=== PATIENT | male | born 1930 | race Caucasian/White ===

== ENCOUNTER 2019-11-17 18:45 | Inpatient (IN) | payer MEDICARE, BC ==
[~2019-11-17] VITALS: Ht 175.3 cm; Wt 69.5 kg
--- NOTE | 2019-11-17 18:53 | PHYS DOC ---
Past History Past Medical History: Anxiety, Arthritis, COPD, Dementia, Depression, Hypertension, Other Adult General Chief Complaint Chief Complaint: PSYCH EVALUATION "... I here to straighten you all out...." [facility] HPI Patient is a 89 year old male who presents with above hx and complaints increased aggressive behavior, hitting staff and other residents, increased agitation, insomnia, restlessness, exhibits manic-type behaviors, Violent sundowning dictation, sexually inappropriate with other members and staff. Extremely difficult to redirect. Has had recent falls. Patient has been a resident of [facility] since 03/05/2019. Recent exacerbation of mental status change. Patient has past medical history of A. fib, COPD, CK D, CHF, dementia, depression, insomnia, bipolar schizoaffective disorder with psychotic features, dysrhythmias resulting in pacemaker placement, gout, GERD, hyperlipidemia, hypertension, diabetes, and deconditioning. Patient normally follows with . Patient sent to the emergency department for evaluation before placement on [facility] Dr. Rebolledo. No med list sent with pt. Daughter is at bedside. Review of Systems Review of Systems Constitutional: Denies fever or chills [] Eyes: Denies change in visual acuity, redness, or eye pain [] HENT: Denies nasal congestion or sore throat [] Respiratory: Denies cough or shortness of breath [] Cardiovascular: No additional information not addressed in [facility] [] GI: Denies abdominal pain, nausea, vomiting, bloody stools or diarrhea [] : Denies dysuria or hematuria [] Musculoskeletal: Denies back pain or joint pain [] Integument: Denies rash or skin lesions [] Neurologic: Denies headache, focal weakness or sensory changes [] Endocrine: Denies polyuria or polydipsia [] All other systems were reviewed and found to be within normal limits, except as documented in this note. Family History Family History Noncontributory Current Medications Current Medications See nursing for home medications Allergies Allergies No known drug allergies Physical Exam Physical Exam Constitutional: no acute distress, non-toxic appearance. [] HENT: Normocephalic, atraumatic, bilateral external ears normal, oropharynx moist, no oral exudates, nose normal. [] Eyes: PERRLA, EOMI, conjunctiva normal, no discharge. [] Neck: Normal range of motion, no tenderness, supple, no stridor. [] Cardiovascular: Bradycardia Heart rate , irregular rhythm, no murmur. PMI to the left. Monitor appears to be A. fib Lungs & Thorax: Bilateral breath sounds equal apexes scattered wheezes auscultation [] Abdomen: Bowel sounds normal, soft, no tenderness, no masses, no pulsatile masses. [] Skin: Warm, dry, no erythema, no rash. Poor turgor. Areas of ecchymosis. Back: No tenderness, no CVA tenderness. [] Extremities: No tenderness, no cyanosis, no clubbing, ROM intact, no edema. Changes. Neurologic: Alert, moves extremities on request has distal sensory function, no new focal deficits noted per family and patient Psychologic: Affect anxious, judgement obviously impaired, mood normal. Intermittently agitated EKG EKG My interpretation EKG shows a irregular rhythm and rate. Ventricular rate 66. Overall rhythm appears to be A. fib. Does have bilateral branch block and RVH.[] Radiology/Procedures Radiology/Procedures [address] [address] IMAGING REPORT Signed PATIENT: RAUL PUCKETT ACCOUNT: [id number] : 1930 LOCATION: ER AGE: 89 SEX: M EXAM STATUS: REG ER ORD. PHYSICIAN: ELKE BENITES MD REASON: dyspnea PROCEDURE: PORTABLE CHEST 1V PORTABLE CHEST 1V History: Dyspnea Comparison: None. Findings: Single view of the chest is submitted. There is dual lead left electronic cardiac device. There has been median sternotomy. There is atherosclerotic calcification aortic arch. There is suspected emphysema. Mild left base opacity is likely atelectasis or fibrotic change. There is no significant dependent pleural fluid or pneumothorax. Pericardial cardiac silhouette is upper limits of normal in size. Impression: 1. There is likely mild left base atelectasis or fibrotic change. There is suspected emphysema. Electronically signed by: Aurelia Cervantes MD (11/17/2019 7:33 PM) [id number] DICTATED AND SIGNED BY: AURELIA CERVANTES MD DATE: 11/17/191932 CC: ELKE BENITES MD; KAREN HINES MD ~ [][address] [id number] IMAGING REPORT Signed PATIENT: RAUL PUCKETT ACCOUNT: [id number] : 1930 LOCATION: ER AGE: 89 SEX: M EXAM STATUS: REG ER ORD. PHYSICIAN: ELKE BENITES MD REASON: Confusion, recent falls PROCEDURE: CT HEAD WO CONTRAST CT HEAD WO CONTRAST Date: 11/17/2019 7:34 PM Clinical Indication: Comparison: None. Technique: 5 mm axial tomographic images were obtained of the head without contrast. These were viewed on brain and bone windows. One or more of the following dose reduction techniques were utilized: Automated exposure control (AEC), Adjustment of mA and/or kV according to patient size, Use of iterative reconstruction technique such as ASiR, CT scan done according to ALARA and image gently/image wisely Findings: Mild generalized cerebral and cerebellar volume loss. Mild nonspecific periventricular hypoattenuation, most commonly seen with chronic small vessel ischemic disease. Calcified atherosclerosis of the bilateral cavernous and paraclinoid internal carotid arteries and intracranial vertebral arteries. Small area of right cerebellar encephalomalacia. No intra- or extra-axial mass or fluid collection. No acute hemorrhage. The ventricles are normal in size, shape, and morphology. The salomon-white matter junction is normal. The subarachnoid cisterns are patent. The visualized paranasal sinuses are normal. The visualized portions of the orbits and globes are normal. The mastoid air cells are clear. The rehab care assistant topogram shows no lytic lesion or fracture. Impression: No acute intracranial process. Small right cerebellar encephalomalacia. Mild cerebral volume loss. Mild chronic small vessel ischemic disease. Electronically signed by: Aurelia Lofton MD (11/17/2019 8:23 PM) [id number] DICTATED AND SIGNED BY: AURELIA LOFTON MD DATE: 11/17/192022 CC: ELKE BENITES MD; KAREN HINES MD ~ Course & Med Decision Making Course & Med Decision Making Pertinent Labs and Imaging studies reviewed. (See chart for details) Patient admitted to [facility] Dr. Rebolledo, with Med consult to Dr. Roy Impression: 1. Mental status change 2. Behavior issues-difficult to redirect greater -aggressive behaviors 3. History dementia 4. History of bipolar disorder with psychosis characteristics 5. History of sheng 6. History of anxiety disorder with panic attacks 7. History of insomnia 8. History of A. fib 9. History of COPD 10. History of chronic renal disease 11. History of CHF-BNP 1360 12. History coronary artery disease with pacer placement 13. History of GERD 14. Anemia hemoglobin 11.9 with macrocytic indices 105 15. Elevated BUN and creatinine 40/1.8 [] Dragon Disclaimer Dragon Disclaimer This electronic medical record was generated, in whole or in part, using a voice recognition dictation system. Departure Departure: Disposition: 01 HOME/RESIDENCE PRIOR TO ADM Condition: STABLE Referrals: KAREN HINES MD (PCP) Nataliya Disclaimer This chart was dictated in whole or in part using Voice Recognition software in a busy, high-work load, and often noisy Emergency Department environment. It may contain unintended and wholly unrecognized errors or omissions. ELKE BENITES MD Nov 17, 2019 18:52
--- NOTE | 2019-11-17 19:36 | RAD ---
PORTABLE CHEST 1V History: Dyspnea Comparison: None. Findings: Single view of the chest is submitted. There is dual lead left electronic cardiac device. There has been median sternotomy. There is atherosclerotic calcification aortic arch. There is suspected emphysema. Mild left base opacity is likely atelectasis or fibrotic change. There is no significant dependent pleural fluid or pneumothorax. Pericardial cardiac silhouette is upper limits of normal in size. Impression: 1. There is likely mild left base atelectasis or fibrotic change. There is suspected emphysema. Electronically signed by: Qamar Cervantes MD (11/17/2019 7:33 PM) [id number]
[2019-11-17 19:52] LABS: BARBITURATES NEG (NEG); BENZODIAZEPINES NEG (NEG); CANNABINOIDS NEG (NEG); COCAINE NEG (NEG); METHADONE NEG (NEG); OPIATES NEG (NEG); PHENCYCLIDINE NEG (NEG)
[2019-11-17 19:53] LABS: AMPHETAMINE/METHAMPHETAMINE NEG (NEG)
[2019-11-17 20:18] LABS: CREATININE 1.8 mg/dL (0.7-1.3); GFR 35.9; POTASSIUM 4.4 mmol/L (3.5-5.1)
[2019-11-17 20:20] LABS: BACTERIA,URINE 0 /HPF (0-FEW); BILIRUBIN,URINE NEG (NEG); CLARITY,URINE CLEAR; COLOR,URINE YELLOW; GLUCOSE,URINE NEG (NEG); NITRITE,URINE NEG (NEG); RBC,URINE 0 /HPF (0-2); SQUAMOUS EPITHELIAL CELL,UR OCC /LPF; UROBILINOGEN,URINE 0.2 mg/dL (0.2 mg/dL); WBC,URINE 0 /HPF (0-4)
[2019-11-17 20:20] LABS: BASO % 0 % (0-3); EOS # 0.2 x10^3/uL (0.0-0.7); EOS % 3 % (0-3); HEMOGLOBIN 11.9 g/dL (13.0-17.5); LYMPH # 2.2 x10^3/uL (1.0-4.8); LYMPH % 29 % (24-48); MEAN CORPUSCULAR HEMOGLOBIN 34 pg (25-35); MEAN CORPUSCULAR HGB CONC 32 g/dL (31-37); MEAN CORPUSCULAR VOLUME 105 fL (79-100); MONO # 0.5 x10^3/uL (0.0-1.1); MONO % 7 % (0-9); NEUT # 4.9 x10^3uL (1.8-7.7); NEUT % 62 % (31-73); PLATELET COUNT 152 x10^3/uL (140-400); RED BLOOD COUNT 3.53 x10^6/uL (4.30-5.70); RED CELL DISTRIBUTION WIDTH 16.1 % (11.5-14.5); WHITE BLOOD COUNT 7.9 x10^3/uL (4.0-11.0)
[2019-11-17 20:21] LABS: HYALINE CASTS, URINE OCC /HPF
--- NOTE | 2019-11-17 20:26 | RAD ---
CT HEAD WO CONTRAST Date: 11/17/2019 7:34 PM Clinical Indication: Comparison: None. Technique: 5 mm axial tomographic images were obtained of the head without contrast. These were viewed on brain and bone windows. One or more of the following dose reduction techniques were utilized: Automated exposure control (AEC), Adjustment of mA and/or kV according to patient size, Use of iterative reconstruction technique such as ASiR, CT scan done according to ALARA and image gently/image wisely Findings: Mild generalized cerebral and cerebellar volume loss. Mild nonspecific periventricular hypoattenuation, most commonly seen with chronic small vessel ischemic disease. Calcified atherosclerosis of the bilateral cavernous and paraclinoid internal carotid arteries and intracranial vertebral arteries. Small area of right cerebellar encephalomalacia. No intra- or extra-axial mass or fluid collection. No acute hemorrhage. The ventricles are normal in size, shape, and morphology. The salomon-white matter junction is normal. The subarachnoid cisterns are patent. The visualized paranasal sinuses are normal. The visualized portions of the orbits and globes are normal. The mastoid air cells are clear. The motor coach supervisor topogram shows no lytic lesion or fracture. Impression: No acute intracranial process. Small right cerebellar encephalomalacia. Mild cerebral volume loss. Mild chronic small vessel ischemic disease. Electronically signed by: Qamar Lofton MD (11/17/2019 8:23 PM) [id number]
[2019-11-17 20:30] LABS: ALBUMIN 3.4 g/dL (3.4-5.0); TOTAL BILIRUBIN 0.5 mg/dL (0.2-1.0); TOTAL PROTEIN 7.6 g/dL (6.4-8.2)
[2019-11-17 20:33] LABS: DIRECT BILIRUBIN 0.3 mg/dL (0.0-0.2)
[2019-11-17 20:45] LABS: INFLUENZA A PATIENT NEGATIVE (NEGATIVE); INFLUENZA B PATIENT NEGATIVE (NEGATIVE)
[2019-11-17] MEDS ORDERED: ACETAMINOPHEN 325 MG TABLET PO PRN (21:15)
[2019-11-17] MEDS ORDERED: ASPI-630 PO (21:23)
[2019-11-17] MEDS ORDERED: HYDR25TA PO (21:23)
[2019-11-17] MEDS ORDERED: POLY15DR27 EACHEYE (21:23)
[2019-11-17] MEDS ORDERED: QUET50TA5 PO ×2 (21:23)
[2019-11-17] MEDS ORDERED: ALBU2.5V14 NEB (21:23)
[2019-11-17] MEDS ORDERED: VIT1TABL34 PO (21:23)
[2019-11-17] MEDS ORDERED: ALLO300T PO (21:23)
[2019-11-17] MEDS ORDERED: OMEP20CA16 PO (21:23)
[2019-11-17] MEDS ORDERED: CARB1DRO9 OP (21:23)
[2019-11-17] MEDS ORDERED: SERT100T8 PO (21:23)
[2019-11-17] MEDS ORDERED: LOSA25TA11 PO (21:23)
[2019-11-17] MEDS ORDERED: CYAN100T2 PO (21:23)
[2019-11-17] MEDS ORDERED: CHOL200078 PO (21:23)
[2019-11-17] MEDS ORDERED: POLY17PO5 PO (21:23)
[2019-11-17] MEDS ORDERED: LORA-254 PO (21:23)
[2019-11-17] MEDS ORDERED: FOLI0.8T2 PO (21:23)
[2019-11-17] MEDS ORDERED: QUET100T4 PO (21:23)
[2019-11-17] MEDS ORDERED: FURO-69 PO (21:23)
[2019-11-17] MEDS ORDERED: METO25TA4 PO (21:23)
[2019-11-17] MEDS ORDERED: BUDE10.22 IH (21:23)
[2019-11-17] MEDS ORDERED: BISA10SU4 RC (21:23)
[2019-11-17 21:33] LABS: SEDIMENTATION RATE 38 (0-15)
[2019-11-17] MEDS ORDERED: MAGNESIUM HYDROXIDE 2,400 MG/30 ML ORAL.SUSP. PO PRN (22:30)
[2019-11-17] MEDS ORDERED: MAG HYDROX/AL HYDROX/SIMETH 30 ML ORAL.SUSP PO PRN (22:30)
[2019-11-17] MEDS ORDERED: METHYL SALICYLATE/MENTHOL TOPICAL OINTMENT 57GM TUBE. TP PRN (22:30)
[2019-11-18] MEDS ORDERED: POLYVINYL ALCOHOL 1.4% OPHTH SOLUTION 15ML BOTTLE. OU PRN
[2019-11-18] MEDS ORDERED: BISACODYL 10 MG SUPP.RECT RC PRN
[2019-11-18] MEDS ORDERED: ALBUTEROL SULFATE 2.5 MG/3 ML NEBU. NEB PRN ×2 (00:15)
[2019-11-18] MEDS: QUEtiapine 100 MG TABLET. PO SCH ×2 (00:31→20:14)
[2019-11-18] MEDS: LORazepam 1 MG TABLET PO PRN ×2 (00:31→18:48)
[2019-11-18 03:34] VITALS: BP 151/63
--- NOTE | 2019-11-18 03:54 | EKG ---
[address] [address] Test Date: 2019-11-17 Test Time: 20:03:49 Pat Name: RAUL PUCKETT Department: Room: Gender: M Dermatological Surgeon: : 1930 Requested By: ELKE BENITES Order Number: [id number] Reading MD: Measurements Intervals Rembert Rate: 66 P: MO: QRS: -43 QRSD: 132 T: 28 QT: 428 QTc: 451 Interpretive Statements IRREGULAR RHYTHM, NO P-WAVE FOUND ABNORMAL LEFT AXIS DEVIATION LOW LIMB LEAD VOLTAGE RIGHT BUNDLE BRANCH BLOCK RVH WITH REPOLARIZATION ABNORMALITY QRS(T) CONTOUR ABNORMALITY CONSISTENT WITH ANTEROSEPTAL INFARCT AGE UNDETERMINED CONSISTENT WITH INFERIOR INFARCT PROBABLY OLD ABNORMAL ECG RI6.01 No previous ECG available for comparison
[2019-11-18] MEDS ORDERED: IPRATRPIUM/ALBUTEROL 0.5/2.5MG 3 ML NEBU. ONE (04:58)
[2019-11-18] MEDS: IPRATRPIUM/ALBUTEROL 0.5/2.5MG 3 ML NEBU. NEB SCH ×4 (05:35→20:00)
[2019-11-18 05:48] VITALS: BP 138/76
[2019-11-18 07:02] LABS: BASO % 0 % (0-3); EOS # 0.2 x10^3/uL (0.0-0.7); EOS % 3 % (0-3); HEMATOCRIT 31.3 % (39.0-53.0); HEMOGLOBIN 10.1 g/dL (13.0-17.5); LYMPH % 28 % (24-48); MEAN CORPUSCULAR HEMOGLOBIN 34 pg (25-35); MEAN CORPUSCULAR HGB CONC 32 g/dL (31-37); MEAN CORPUSCULAR VOLUME 104 fL (79-100); MONO # 0.5 x10^3/uL (0.0-1.1); MONO % 7 % (0-9); NEUT # 4.5 x10^3uL (1.8-7.7); NEUT % 62 % (31-73); PLATELET COUNT 131 x10^3/uL (140-400); RED BLOOD COUNT 3.01 x10^6/uL (4.30-5.70); RED CELL DISTRIBUTION WIDTH 16.1 % (11.5-14.5); WHITE BLOOD COUNT 7.3 x10^3/uL (4.0-11.0)
[2019-11-18 07:07] LABS: CALCIUM 8.5 mg/dL (8.5-10.1); CREATININE 1.7 mg/dL (0.7-1.3); GFR 38.3
[2019-11-18] MEDS: BUDESONIDE 0.5 MG/2 ML NEBU NEB SCH ×2 (08:00→20:00)
[2019-11-18] MEDS: CHOLECALCIFEROL (VITAMIN D3) 1,000 UNIT TABLET PO SCH (09:38)
[2019-11-18] MEDS: POLYETHYLENE GLYCOL 3350 17 GM PACKET. PO SCH (09:38)
[2019-11-18] MEDS: PANTOPRAZOLE 40 MG TABLET. PO SCH (09:38)
[2019-11-18] MEDS: QUEtiapine 50 MG TABLET. PO SCH (09:38)
[2019-11-18] MEDS: FUROSEMIDE 20 MG TABLET PO SCH (09:39)
[2019-11-18] MEDS: SERTRALINE 100 MG TABLET. PO SCH (09:39)
[2019-11-18] MEDS: FOLIC ACID 1 MG TABLET PO SCH (09:39)
[2019-11-18] MEDS: ASPIRIN 81 MG TAB.CHEW PO SCH (09:39)
[2019-11-18] MEDS: MULTIVITAMIN I-VITE TABLET. PO SCH ×2 (09:39→20:14)
[2019-11-18] MEDS: LOSARTAN 25 MG TABLET. PO SCH (09:39)
[2019-11-18] MEDS: METOPROLOL TART IMMED RELEASE 25 MG TABLET PO SCH ×2 (09:39→20:14)
[2019-11-18] MEDS: ALLOPURINOL 300 MG TABLET. PO SCH (09:40)
[2019-11-18] MEDS: POLYVINYL ALCOHOL 1.4% OPHTH SOLUTION 15ML BOTTLE. OU SCH ×2 (09:40→20:14)
[2019-11-18] MEDS: CYANOCOBALAMIN (VITAMIN B-12) 100 MCG TABLET PO SCH (09:40)
[2019-11-18 15:46] VITALS: BP 101/59
[2019-11-18 18:06] LABS: THYROXINE 2.2 ug/dL (4.5-12.0)
[2019-11-18] MEDS: PRAMIPEXOLE 0.5 MG TABLET. PO SCH (20:13)
[2019-11-18] MEDS ORDERED: QUEtiapine 100 MG TABLET. PO SCH (21:00)
--- NOTE | 2019-11-18 21:42 | PDOC ---
Exam Note: En Note: Please also refer to the separate dictated note~for this date of service dictated separately. Discussed the patient with Nursing staff reviewed the chart.~Reviewed interim history and current functioning. Reviewed vital signs,~Labs/ Radiology~and current medications noted below. Continue current treatment with the changes noted in the dictated addendum note Assessment: Vital Signs/I&O: Vital Signs Date Time Temp Pulse Resp B/P (MAP) Pulse Ox O2 Delivery O2 Flow Rate FiO2 11/18/19 20:14 68 101/59 11/18/19 15:46 97.3 18 94 11/18/19 06:17 Room Air Labs: Laboratory Tests Test 11/18/19 06:42 White Blood Count 7.3 x10^3/uL (4.0-11.0) Red Blood Count 3.01 x10^6/uL (4.30-5.70) L Hemoglobin 10.1 g/dL (13.0-17.5) L Hematocrit 31.3 % (39.0-53.0) L Mean Corpuscular Volume 104 fL (79-100) H Mean Corpuscular Hemoglobin 34 pg (25-35) Mean Corpuscular Hemoglobin Concent 32 g/dL (31-37) Red Cell Distribution Width 16.1 % (11.5-14.5) H Platelet Count 131 x10^3/uL (140-400) L Neutrophils (%) (Auto) 62 % (31-73) Lymphocytes (%) (Auto) 28 % (24-48) Monocytes (%) (Auto) 7 % (0-9) Eosinophils (%) (Auto) 3 % (0-3) Basophils (%) (Auto) 0 % (0-3) Neutrophils # (Auto) 4.5 x10^3uL (1.8-7.7) Lymphocytes # (Auto) 2.0 x10^3/uL (1.0-4.8) Monocytes # (Auto) 0.5 x10^3/uL (0.0-1.1) Eosinophils # (Auto) 0.2 x10^3/uL (0.0-0.7) Basophils # (Auto) 0.0 x10^3/uL (0.0-0.2) Sodium Level 143 mmol/L (136-145) Potassium Level 4.0 mmol/L (3.5-5.1) Chloride Level 107 mmol/L (98-107) Carbon Dioxide Level 29 mmol/L (21-32) Anion Gap 7 (6-14) Blood Urea Nitrogen 36 mg/dL (8-26) H Creatinine 1.7 mg/dL (0.7-1.3) H Estimated GFR (Cockcroft-Gault) 38.3 Glucose Level 104 mg/dL (70-99) H Calcium Level 8.5 mg/dL (8.5-10.1) Current Medications: Meds: Current Medications Medications (Trade) Dose Ordered Sig/Last Route PRN Reason Start Time Stop Time Status Last Admin Dose Admin Albuterol/ Ipratropium (Duoneb) 3 ml RTQID NEB 11/18/19 08:00 11/19/19 07:59 11/18/19 18:22 Allopurinol (Zyloprim) 300 mg DAILY PO 11/18/19 09:00 11/18/19 09:40 Aspirin (Children'S Aspirin) 81 mg DAILY PO 11/18/19 09:00 11/18/19 09:39 Cyanocobalamin (Vitamin B-12) 100 mcg DAILY PO 11/18/19 09:00 11/18/19 09:40 Furosemide (Lasix) 20 mg DAILY PO 11/18/19 09:00 11/18/19 09:39 Lorazepam (Ativan) 1 mg PRN TID PRN PO ANXIETY / AGITATION 11/18/19 00:00 11/18/19 18:48 Losartan Potassium (Cozaar) 25 mg DAILY PO 11/18/19 09:00 11/18/19 09:39 Metoprolol Tartrate (Lopressor) 12.5 mg BID PO 11/18/19 09:00 11/18/19 20:14 Polyethylene Glycol (miraLAX) 17 gm DAILY PO 11/18/19 09:00 11/18/19 09:38 Quetiapine Fumarate (SEROquel) 50 mg DAILY PO 11/18/19 09:00 11/18/19 09:38 Sertraline HCl (Zoloft) 100 mg DAILY PO 11/18/19 09:00 11/18/19 09:39 Artificial Tears (Artificial Tears) 1 drop BID OU 11/18/19 09:00 11/18/19 20:14 Vitamin D (Vitamin D3) 2,000 unit DAILY PO 11/18/19 09:00 11/18/19 09:38 Folic Acid (Folic Acid) 1 mg DAILY PO 11/18/19 09:00 11/18/19 09:39 Pantoprazole Sodium (Protonix) 40 mg DAILYAC PO 11/18/19 07:30 11/18/19 09:38 Multivitamins/ Minerals (I-Yuan) 1 tab BID PO 11/18/19 09:00 11/18/19 20:14 Quetiapine Fumarate (SEROquel) 100 mg HS PO 11/18/19 00:00 11/18/19 20:14 Pramipexole Dihydrochloride (miraPEX) 0.5 mg QHS PO 11/18/19 21:00 11/18/19 20:13 I have reviewed the current psychotropics carefully including drug interactions. Risk benefit ratio favors no change other than as noted in my dictated progress note. Diagnosis: Problems: (1) Dementia with behavioral disturbance (2) Anxiety disorder (3) Dementia, vascular, with depression (4) Dementia, vascular, with delusions (5) Dementia in Alzheimer's disease with depression (6) Dementia in Alzheimer's disease with delusions (7) Impulse control disorder ELISABETH BACA MD Nov 18, 2019 21:42
[2019-11-18] MEDS: hydrOXYzine HCL 25 MG TABLET PO PRN (22:23)
--- NOTE | 2019-11-18 23:23 | CONS ---
DATE OF CONSULTATION: 11/18/2019 REASON FOR CONSULTATION: Medical management. HISTORY OF PRESENT ILLNESS: The patient is an 89-year-old male patient, a resident at [facility], who was [facility] on account of increased restlessness, agitation confrontational, violent, hitting staff, manic behaviors, sundowning, exit seeking, sexually inappropriate poor sleep, and poor safety, all this in a background of major neurocognitive disorder, vascular Alzheimer with delusion, depression, behavioral disorders, anxiety disorder, unspecified; impulse control. Medically, he has multiple medical problems including atrial fibrillation, hypertension, hyperlipidemia, type 2 diabetes mellitus, chronic obstructive pulmonary disease, chronic kidney disease, heart failure and obstructive sleep apnea as well as gout. PAST SURGICAL HISTORY: Significant for pacemaker placement. PAST PSYCHIATRIC HISTORY: Significant obviously for dementia, vascular Alzheimer with delusion, depression, anxiety as well as impulse control disorder. ALLERGIES: He has no known drug allergies. MEDICATIONS: He is currently on following medications: He is on albuterol sulfate 2.5 mg by nebulizer every 4 hours, metoprolol tartrate 12.5 mg twice a day, losartan potassium 25 mg once a day, aspirin chewable tablet 81 mg once a day, sertraline 100 mg daily, Seroquel 100 mg at bedtime, Seroquel 50 mg daily, Seroquel 50 mg 3 times a day as needed. He is on lorazepam 1 mg 3 times a day as needed for anxiety and agitation, furosemide 20 mg daily, Symbicort 80/4.5 two puffs twice a day, lubricating eyedrops 1 drop to both eyes twice a day, artificial tears 1 drop to both eyes 3 times a day as needed, bisacodyl 10 mg suppositories rectally daily p.r.n. for constipation, polyethylene glycol 17 grams daily. He is on omeprazole 20 mg once a day, cyanocobalamin 100 mcg tablet once a day, folic acid 800 mcg once a day, ergocalciferol 2000 international unit once a day, allopurinol 300 mg daily, PreserVision AREDS tablet 2 tablets twice a day. FAMILY HISTORY: Noncontributory. SOCIAL HISTORY: Apparently, a resident at [facility], no further information available. PHYSICAL EXAMINATION: GENERAL: When I saw him this afternoon, he was sitting comfortably in his chair, in no apparent distress. He was pale, but no jaundice, cyanosis or thyromegaly. No jugular venous distention. No lower limb edema. VITAL SIGNS: His heart rate was 68, blood pressure was 101/59, temperature was 97.3, respiratory rate was 18 and oxygen saturation was 94%. HEAD, EYES, EARS, NOSE AND THROAT: Showed normocephalic, atraumatic. NECK: Supple. HEART: Showed normal first and second heart sounds. No gallop, rub or murmur. CHEST: Shows central trachea, equal bilateral expansion, air entry, vesicular sounds with bilateral scattered rhonchi. I could not appreciate any crepitation. ABDOMEN: Slightly distended, soft, nontender. NEUROLOGIC: He is demented without any obvious lateralizing sign. EXTREMITIES: He moves all extremities without difficulty. He ambulates with a walker SKIN: Showed multiple bruises and laceration. LABORATORY DATA: Showed a white cell count 7900, hemoglobin 11.9, hematocrit 37, MCV 105 and platelet count 252,000. His chemistry showed a serum sodium 142, potassium 4.4, chloride 102, bicarbonate 29, anion gap of 11, BUN 40, creatinine 1.8, estimated GFR was 36 mL per minute. His glucose 129, calcium was 9, magnesium was 2. Total bilirubin, AST, ALT were normal. Alkaline phosphatase slightly elevated. CK was 55. Beta natriuretic peptide was 1360. Total protein was 7.6, albumin was 3.4. Serum lipase was 133. His TSH was normal at 3.146. Serum iron, TIBC, and iron saturation are all consistent with anemia of chronic disease. His prothrombin time, INR and aPTT are normal. Urinalysis was essentially unremarkable, was negative for glucose, ketones, blood, nitrite, leukocyte esterase. There are no rbc's, no wbc's, and no bacteria. His toxic screen was negative and his influenza A and B were negative. He apparently has a chest x-ray done. There is a dual lead left electronic cardiac device. There has been a median sternotomy. There is atherosclerotic calcification of the aortic arch. There is suspected emphysema, mild left basilar opacities, likely atelectasis or fibrotic changes. There is no significant dependent pleural fluid or pneumothorax. Cardiac silhouette is upper limit of normal in size. The CT scan of the head showed that the patient has mild generalized cerebral and cerebellar volume loss, mild nonspecific periventricular hypoattenuation most commonly seen with chronic small vessel ischemic disease, calcified atherosclerosis, bilateral cavernous and paraclinoid internal carotid artery and intracranial vertebral arteries, small area of right cerebellar encephalomalacia. No intra or extraaxial mass or fluid collection, no acute hemorrhage. The ventricles are normal in size and shape and morphology. The salomon-white distinction is normal. The subarachnoid cisterns are patent. The visualized paranasal sinuses are normal. The visualized portion of the orbits and globes are normal. The mastoid air cells are clear. There are no lytic lesions or fracture. IMPRESSION: In summary, this is an 89-year-old male patient who was admitted on account of increasing restlessness, agitation, confrontational, violent, hitting at staff, manic behavior, sundowning, exit seeking, sexually inappropriate, poor sleep, and poor safety, all this in a background of major neurocognitive disorder, vascular Alzheimer with delusion, depression. Medically, he has numerous medical problems; however, he seemed to be generally stable. All his vital signs are within acceptable range and all his labs are also within acceptable range. His chemistry obviously showed that he has chronic kidney disease with estimated GFR between 35-40 mL per minute. Some other lab works are still pending at the time of this dictation. PLAN: My plan is to continue with all these medications. I will follow with his lab works that are still pending at the time of this dictation and make any necessary recommendation. Thank you, Dr. Rebolledo, for allowing me to participate in the care of this patient. LARISSA ROMERO MD DR: PONCE/rosenda JOB#: [id number] / [id number]
[2019-11-18] MEDS: traZODone 50 MG TABLET. PO PRN (23:46)
[2019-11-19 00:07] LABS: HEMOGLOBIN A1C 6.2 % (4.8-5.6)
[2019-11-19] MEDS: traZODone 50 MG TABLET. PO PRN ×2 (01:55→22:25)
[2019-11-19] MEDS: IPRATRPIUM/ALBUTEROL 0.5/2.5MG 3 ML NEBU. NEB SCH (05:44)
[2019-11-19 06:11] VITALS: BP 116/88
[2019-11-19] MEDS: PANTOPRAZOLE 40 MG TABLET. PO SCH (07:30)
[2019-11-19] MEDS: POLYVINYL ALCOHOL 1.4% OPHTH SOLUTION 15ML BOTTLE. OU SCH ×2 (09:00→21:08)
[2019-11-19] MEDS: CYANOCOBALAMIN (VITAMIN B-12) 100 MCG TABLET PO SCH (09:00)
[2019-11-19] MEDS: POLYETHYLENE GLYCOL 3350 17 GM PACKET. PO SCH (09:00)
[2019-11-19] MEDS: CHOLECALCIFEROL (VITAMIN D3) 1,000 UNIT TABLET PO SCH (09:00)
[2019-11-19] MEDS: FUROSEMIDE 20 MG TABLET PO SCH (09:00)
[2019-11-19] MEDS: MULTIVITAMIN I-VITE TABLET. PO SCH ×2 (09:00→21:08)
[2019-11-19] MEDS: METOPROLOL TART IMMED RELEASE 25 MG TABLET PO SCH ×2 (09:00→21:00)
[2019-11-19] MEDS: FOLIC ACID 1 MG TABLET PO SCH (09:00)
[2019-11-19] MEDS: ASPIRIN 81 MG TAB.CHEW PO SCH (09:00)
[2019-11-19] MEDS: LOSARTAN 25 MG TABLET. PO SCH (09:00)
[2019-11-19] MEDS: SERTRALINE 100 MG TABLET. PO SCH (10:14)
[2019-11-19] MEDS: PRAMIPEXOLE 0.25 MG TABLET. PO SCH (10:14)
[2019-11-19] MEDS: QUEtiapine 50 MG TABLET. PO SCH (10:15)
[2019-11-19] MEDS: ALLOPURINOL 300 MG TABLET. PO SCH (10:15)
[2019-11-19] MEDS: BUDESONIDE 0.5 MG/2 ML NEBU NEB SCH ×2 (12:00→21:12)
--- NOTE | 2019-11-19 15:26 | HP ---
ADMIT DATE: 11/18/2019 PSYCHIATRIC ADMISSION HISTORY AND EVALUATION IDENTIFYING DATA: The patient is an 89-year-old male referred to us from [facility] by Dr. Oliva, his primary care physician in [place], [place] on account of worsening cognition, agitation, paranoia and mood lability. The patient has been increasingly restless, agitated, confrontational, violent and hitting at staff. He has appeared manic, sundowning makes all this worse. He has been exit seeking, sexually inappropriate with marked insomnia and he was deemed a potential danger to himself and others around him. He has failed outpatient psychiatric interventions resulting in this referral. The patient has been on one-on-one status at the facility, but despite all the interventions behaviors have only worsened, become more dangerous and violent resulting in this referral. The patient was seen individually evening of 11/18 for this evaluation. CHIEF COMPLAINT: "No." The patient is oriented just to himself. He is in the [place] due to his marked agitation, he is banging on doors, hitting, kicking, extremely loud, disruptive. HISTORY OF PRESENT ILLNESS: The patient has a history of major neurocognitive disorder, Alzheimer, vascular. He has been residing at [facility], but recently getting more agitated, aggressive, disruptive as noted above. He has appeared somewhat manic, but there is no clear history of bipolar disorder, suicidal or homicidal ideation. PAST PSYCHIATRIC HISTORY: As above. MEDICAL HISTORY: Atrial fibrillation, COPD, chronic kidney disease, heart failure, sleep apnea, pacemaker in place, gout, GERD, hyperlipidemia, hypertension, type 2 diabetes mellitus. CODE STATUS: DNR. ALLERGIES: Negative. DIET: Regular. Takes medications whole or crushed in chocolate ice cream. Ambulates with walker independently. CURRENT PSYCHOTROPICS: Seroquel 50 mg a day, Zoloft 100 mg a day, hydroxyzine 25 mg t.i.d. p.r.n., Ativan 1 mg t.i.d. p.r.n., Seroquel 50 mg t.i.d. p.r.n. psychosis, agitation. FAMILY HISTORY: Noncontributory. SOCIAL HISTORY: No history of alcohol, drug abuse, physical, sexual or elder abuse. He is not known to be a perpetrator. REACTION TO HOSPITALIZATION: The patient oblivious to this. ASSETS: Supportive living at the above facility, supportive family. MENTAL STATUS EXAMINATION: The patient was seen individually evening of 11/18. He is oriented to himself. Insight, judgment, recent and remote memory, attention, concentration, fund of knowledge poor consistent with his diagnosis. IMPRESSION: Major neurocognitive disorder, Alzheimer vascular with delusion, depression, behavioral disturbance; anxiety disorder, unspecified; impulse control disorder, unspecified. Rest as above. PLAN: Admit to Geropsychiatry unit at [facility]. I will see the patient daily individually from a psychiatric standpoint. Medical followup with Dr. Roy. Continue the patient on his current psychotropics. Observe baseline. Start Zyprexa p.r.n. Consider Depakote as a mood stabilizer. We will make further changes as clinically indicated. Estimated length of stay 10-12 days. DISPOSITION: Plan is back to half-way when stable. ELISABETH BACA MD DR: CAMPOS/rosenda JOB#: [id number] / [id number]
[2019-11-19 16:10] VITALS: BP 116/46
[2019-11-19] MEDS: PRAMIPEXOLE 0.5 MG TABLET. PO SCH (21:08)
[2019-11-19] MEDS: MIRTAZAPINE 7.5 MG TABLET. PO SCH (21:08)
[2019-11-19] MEDS: QUEtiapine 100 MG TABLET. PO SCH (21:10)
[2019-11-19] MEDS: hydrOXYzine HCL 25 MG TABLET PO PRN (21:15)
--- NOTE | 2019-11-19 21:20 | PDOC ---
Exam Note: En Note: Please also refer to the separate dictated note~for this date of service dictated separately.~Patient seen individually. Discussed the patient with Nursing staff reviewed the chart.~Reviewed interim history and current functioning. Reviewed vital signs,~Labs/ Radiology~and current medications noted below. Continue current treatment with the changes noted in the dictated addendum note Assessment: Vital Signs/I&O: Vital Signs Date Time Temp Pulse Resp B/P (MAP) Pulse Ox O2 Delivery O2 Flow Rate FiO2 11/19/19 21:12 92 Room Air 11/19/19 21:00 66 116/46 11/19/19 16:10 97.5 16 I & O 11/18/19 11/18/19 11/19/19 14:59 22:59 06:59 Intake Total 120 ml 60 ml 240 ml Balance 120 ml 60 ml 240 ml Current Medications: Meds: Current Medications Medications (Trade) Dose Ordered Sig/Last Route PRN Reason Start Time Stop Time Status Last Admin Dose Admin Pramipexole Dihydrochloride (miraPEX) 0.25 mg DAILY PO 11/19/19 09:00 11/19/19 10:14 Trazodone HCl (Desyrel) 50 mg PRN QHS PRN PO insomnia 11/18/19 23:15 11/19/19 01:55 Mirtazapine (Remeron) 7.5 mg QHS PO 11/19/19 21:00 11/19/19 21:08 I have reviewed the current psychotropics carefully including drug interactions. Risk benefit ratio favors no change other than as noted in my dictated progress note. Diagnosis: Problems: (1) Dementia with behavioral disturbance (2) Anxiety disorder (3) Dementia, vascular, with depression (4) Dementia, vascular, with delusions (5) Dementia in Alzheimer's disease with depression (6) Dementia in Alzheimer's disease with delusions (7) Impulse control disorder (8) Major neurocognitive disorder ELISABETH BACA MD Nov 19, 2019 21:20
[2019-11-19] MEDS: LORazepam 1 MG TABLET PO PRN (21:45)
[2019-11-19] MEDS: ACETAMINOPHEN 325 MG TABLET PO PRN (22:25)
[2019-11-20 06:14] VITALS: BP 126/54
[2019-11-20] MEDS: BUDESONIDE 0.5 MG/2 ML NEBU NEB SCH ×2 (08:00→22:20)
[2019-11-20] MEDS: LOSARTAN 25 MG TABLET. PO SCH ×2 (09:00→11:14)
[2019-11-20] MEDS: QUEtiapine 25 MG TABLET. PO SCH ×3 (09:00→17:14)
[2019-11-20] MEDS: MULTIVITAMIN I-VITE TABLET. PO SCH ×3 (09:00→21:00)
[2019-11-20] MEDS: ALLOPURINOL 300 MG TABLET. PO SCH ×2 (09:00→11:14)
[2019-11-20] MEDS: PANTOPRAZOLE 40 MG TABLET. PO SCH ×3 (09:00→23:17)
[2019-11-20] MEDS: PRAMIPEXOLE 0.25 MG TABLET. PO SCH ×2 (09:00→11:15)
[2019-11-20] MEDS: FUROSEMIDE 20 MG TABLET PO SCH ×2 (09:00→11:14)
[2019-11-20] MEDS: POLYETHYLENE GLYCOL 3350 17 GM PACKET. PO SCH ×2 (09:00→11:14)
[2019-11-20] MEDS: CYANOCOBALAMIN (VITAMIN B-12) 100 MCG TABLET PO SCH ×2 (09:00→11:15)
[2019-11-20] MEDS: METOPROLOL TART IMMED RELEASE 25 MG TABLET PO SCH ×3 (09:00→21:00)
[2019-11-20] MEDS: SERTRALINE 100 MG TABLET. PO SCH ×2 (09:00→11:14)
[2019-11-20] MEDS: FOLIC ACID 1 MG TABLET PO SCH ×2 (09:00→11:14)
[2019-11-20] MEDS: ASPIRIN 81 MG TAB.CHEW PO SCH ×2 (09:00→11:14)
[2019-11-20 11:10] VITALS: BP 123/53
[2019-11-20] MEDS: POLYVINYL ALCOHOL 1.4% OPHTH SOLUTION 15ML BOTTLE. OU SCH ×2 (11:14→21:00)
[2019-11-20] MEDS: CHOLECALCIFEROL (VITAMIN D3) 1,000 UNIT TABLET PO SCH (11:15)
--- NOTE | 2019-11-20 15:20 | PN ---
DATE: 11/19/2019 PSYCHIATRIC PROGRESS NOTE This late entry, 11/19/2019, covers elements not covered in my initial note. SUBJECTIVE: I met with the patient evening of 11/19/2019. Per JEFFERY Camarena, the patient slept just about one hour previous night. He was agitated, aggressive at night, hitting, kicking, fighting with staff. REVIEW OF SYSTEMS: No CV, , pulmonary, eye, ENT system symptoms on review. Reliability poor. MENTAL STATUS EXAM: Oriented to himself. Insight, judgment, recent and remote memory, attention, concentration, fund of knowledge poor, consistent with his diagnosis. IMPRESSION: Major neurocognitive disorder, Alzheimer, vascular with delusion, depression, behavioral disturbance; anxiety disorder, unspecified; impulse control disorder, unspecified. PLAN: Start Remeron 7.5 mg p.o. at bedtime for his insomnia and anxiety, agitation. Seroquel is currently at 50 mg a day and we will change to 25 mg in the morning at 0900 hours, 37.5 mg at 1700 hours. Consider Depakote as a mood stabilizer. Continue Zoloft 100 mg a day; trazodone 50 mg at bedtime, may repeat x 1 for insomnia, hydroxyzine 25 mg t.i.d. p.r.n. anxiety; Ativan p.r.n. for anxiety; Seroquel as p.r.n. additionally for mood liability. ELISABETH BACA MD DR: CAMPOS/rosenda JOB#: [id number] / [id number]
[2019-11-20 15:47] VITALS: BP 131/63
[2019-11-20] MEDS: DIVALPROEX 125 MG CAP.SPRINK PO SCH (17:13)
[2019-11-20] MEDS: PRAMIPEXOLE 0.5 MG TABLET. PO SCH (21:00)
--- NOTE | 2019-11-20 21:19 | PDOC ---
Exam Note: En Note: Please also refer to the separate dictated note~for this date of service dictated separately.~Patient seen individually. Discussed the patient with Nursing staff reviewed the chart.~Reviewed interim history and current functioning. Reviewed vital signs,~Labs/ Radiology~and current medications noted below. Continue current treatment with the changes noted in the dictated addendum note Assessment: Vital Signs/I&O: Vital Signs Date Time Temp Pulse Resp B/P (MAP) Pulse Ox O2 Delivery O2 Flow Rate FiO2 11/20/19 20:25 93 Room Air 11/20/19 15:47 97.4 72 18 131/63 (85) I & O 11/19/19 11/19/19 11/20/19 15:00 23:00 07:00 Intake Total 1080 ml 480 ml Balance 1080 ml 480 ml Current Medications: Meds: Current Medications Medications (Trade) Dose Ordered Sig/Last Route PRN Reason Start Time Stop Time Status Last Admin Dose Admin Quetiapine Fumarate (SEROquel) 37.5 mg DAILYWSUP PO 11/20/19 17:00 11/20/19 17:14 Divalproex Sodium (Depakote Sprinkles) 125 mg BID@0900,1700 PO 11/20/19 17:00 11/20/19 17:13 I have reviewed the current psychotropics carefully including drug interactions. Risk benefit ratio favors no change other than as noted in my dictated progress note. Diagnosis: Problems: (1) Major neurocognitive disorder (2) Dementia with behavioral disturbance (3) Anxiety disorder (4) Dementia, vascular, with depression (5) Dementia, vascular, with delusions (6) Dementia in Alzheimer's disease with depression (7) Dementia in Alzheimer's disease with delusions (8) Impulse control disorder ELISABETH BACA MD Nov 20, 2019 21:19
[2019-11-20] MEDS: MIRTAZAPINE 7.5 MG TABLET. PO SCH (21:28)
[2019-11-20] MEDS: hydrOXYzine HCL 25 MG TABLET PO PRN (21:28)
[2019-11-20] MEDS: LORazepam 1 MG TABLET PO PRN (21:29)
[2019-11-20] MEDS: ACETAMINOPHEN 325 MG TABLET PO PRN (21:29)
[2019-11-20] MEDS: QUEtiapine 100 MG TABLET. PO SCH (21:29)
[2019-11-21 06:28] VITALS: BP 143/57
[2019-11-21] MEDS: BUDESONIDE 0.5 MG/2 ML NEBU NEB SCH ×2 (08:00→20:00)
[2019-11-21] MEDS: POLYETHYLENE GLYCOL 3350 17 GM PACKET. PO SCH (08:45)
[2019-11-21] MEDS: hydrOXYzine HCL 25 MG TABLET PO PRN ×2 (08:46→23:20)
[2019-11-21] MEDS: QUEtiapine 25 MG TABLET. PO SCH ×2 (08:46→16:55)
[2019-11-21] MEDS: METOPROLOL TART IMMED RELEASE 25 MG TABLET PO SCH ×2 (08:46→20:42)
[2019-11-21] MEDS: MULTIVITAMIN I-VITE TABLET. PO SCH ×2 (08:46→20:41)
[2019-11-21] MEDS: ALLOPURINOL 300 MG TABLET. PO SCH (08:46)
[2019-11-21] MEDS: SERTRALINE 100 MG TABLET. PO SCH (08:46)
[2019-11-21] MEDS: FOLIC ACID 1 MG TABLET PO SCH (08:47)
[2019-11-21] MEDS: CHOLECALCIFEROL (VITAMIN D3) 1,000 UNIT TABLET PO SCH (08:47)
[2019-11-21] MEDS: QUEtiapine 50 MG TABLET. PO PRN ×2 (08:48→23:20)
[2019-11-21] MEDS: ASPIRIN 81 MG TAB.CHEW PO SCH (08:48)
[2019-11-21] MEDS: PRAMIPEXOLE 0.25 MG TABLET. PO SCH (08:48)
[2019-11-21] MEDS: LOSARTAN 25 MG TABLET. PO SCH (08:48)
[2019-11-21] MEDS: FUROSEMIDE 20 MG TABLET PO SCH (08:48)
[2019-11-21] MEDS: DIVALPROEX 125 MG CAP.SPRINK PO SCH ×2 (08:51→16:55)
[2019-11-21] MEDS: POLYVINYL ALCOHOL 1.4% OPHTH SOLUTION 15ML BOTTLE. OU SCH ×2 (08:58→20:42)
[2019-11-21] MEDS: CYANOCOBALAMIN (VITAMIN B-12) 100 MCG TABLET PO SCH (08:58)
[2019-11-21 15:55] VITALS: BP 100/59
[2019-11-21] MEDS: PRAMIPEXOLE 0.5 MG TABLET. PO SCH (20:41)
[2019-11-21] MEDS: MIRTAZAPINE 7.5 MG TABLET. PO SCH (20:41)
[2019-11-21] MEDS: QUEtiapine 100 MG TABLET. PO SCH (20:41)
--- NOTE | 2019-11-21 21:59 | PDOC ---
Exam Note: En Note: Please also refer to the separate dictated note~for this date of service dictated separately.~Patient seen individually. Discussed the patient with Nursing staff reviewed the chart.~Reviewed interim history and current functioning. Reviewed vital signs,~Labs/ Radiology~and current medications noted below. Continue current treatment with the changes noted in the dictated addendum note Assessment: Vital Signs/I&O: Vital Signs Date Time Temp Pulse Resp B/P (MAP) Pulse Ox O2 Delivery O2 Flow Rate FiO2 11/21/19 20:42 95 110/62 11/21/19 15:55 97.9 18 98 11/21/19 10:13 Room Air I & O 11/20/19 11/20/19 11/21/19 15:00 23:00 07:00 Intake Total 720 ml 360 ml Balance 720 ml 360 ml Current Medications: I have reviewed the current psychotropics carefully including drug interactions. Risk benefit ratio favors no change other than as noted in my dictated progress note. Diagnosis: Problems: (1) Major neurocognitive disorder (2) Dementia with behavioral disturbance (3) Anxiety disorder (4) Dementia, vascular, with depression (5) Dementia, vascular, with delusions (6) Dementia in Alzheimer's disease with depression (7) Dementia in Alzheimer's disease with delusions (8) Impulse control disorder ELISABETH BACA MD Nov 21, 2019 21:59
[2019-11-21] MEDS: LORazepam 1 MG TABLET PO PRN (22:25)
[2019-11-21] MEDS: traZODone 50 MG TABLET. PO PRN (22:25)
[2019-11-22 06:24] VITALS: BP 92/47
[2019-11-22] MEDS: CHOLECALCIFEROL (VITAMIN D3) 1,000 UNIT TABLET PO SCH (08:56)
[2019-11-22] MEDS: PRAMIPEXOLE 0.25 MG TABLET. PO SCH (08:56)
[2019-11-22] MEDS: PANTOPRAZOLE 40 MG TABLET. PO SCH (08:56)
[2019-11-22] MEDS: DIVALPROEX 125 MG CAP.SPRINK PO SCH ×2 (08:56→17:28)
[2019-11-22] MEDS: FOLIC ACID 1 MG TABLET PO SCH (08:56)
[2019-11-22] MEDS: SERTRALINE 100 MG TABLET. PO SCH (08:56)
[2019-11-22] MEDS: ASPIRIN 81 MG TAB.CHEW PO SCH (08:56)
[2019-11-22] MEDS: ALLOPURINOL 300 MG TABLET. PO SCH (08:56)
[2019-11-22] MEDS: MULTIVITAMIN I-VITE TABLET. PO SCH ×2 (08:56→20:31)
[2019-11-22] MEDS: POLYETHYLENE GLYCOL 3350 17 GM PACKET. PO SCH (08:57)
[2019-11-22] MEDS: LOSARTAN 25 MG TABLET. PO SCH (09:00)
[2019-11-22] MEDS: METOPROLOL TART IMMED RELEASE 25 MG TABLET PO SCH ×2 (09:00→20:32)
[2019-11-22] MEDS: FUROSEMIDE 20 MG TABLET PO SCH (09:00)
[2019-11-22] MEDS: CYANOCOBALAMIN (VITAMIN B-12) 100 MCG TABLET PO SCH (09:01)
[2019-11-22] MEDS: POLYVINYL ALCOHOL 1.4% OPHTH SOLUTION 15ML BOTTLE. OU SCH ×2 (09:01→20:32)
[2019-11-22] MEDS: QUEtiapine 25 MG TABLET. PO SCH ×2 (09:01→17:28)
[2019-11-22] MEDS: BUDESONIDE 0.5 MG/2 ML NEBU NEB SCH ×2 (10:34→21:26)
[2019-11-22 15:57] VITALS: BP 129/84
[2019-11-22] MEDS: PRAMIPEXOLE 0.5 MG TABLET. PO SCH (20:31)
[2019-11-22] MEDS: QUEtiapine 100 MG TABLET. PO SCH (20:31)
[2019-11-22] MEDS: MIRTAZAPINE 7.5 MG TABLET. PO SCH (20:31)
[2019-11-22] MEDS: traZODone 50 MG TABLET. PO PRN ×2 (20:32→23:00)
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
--- NOTE | 2019-11-22 21:38 | PDOC ---
Exam Note: En Note: Please also refer to the separate dictated note~for this date of service dictated separately.~Patient seen individually. Discussed the patient with Nursing staff reviewed the chart.~Reviewed interim history and current functioning. Reviewed vital signs,~Labs/ Radiology~and current medications noted below. Continue current treatment with the changes noted in the dictated addendum note Assessment: Vital Signs/I&O: Vital Signs Date Time Temp Pulse Resp B/P (MAP) Pulse Ox O2 Delivery O2 Flow Rate FiO2 11/22/19 20:32 70 129/84 11/22/19 20:10 95 Room Air 11/22/19 15:57 98.2 16 11/22/19 06:24 2.0 I & O 11/21/19 11/21/19 11/22/19 15:00 23:00 07:00 Intake Total 600 ml 360 ml Balance 600 ml 360 ml Current Medications: Meds: Current Medications Medications (Trade) Dose Ordered Sig/Last Route PRN Reason Start Time Stop Time Status Last Admin Dose Admin Quetiapine Fumarate (SEROquel) 37.5 mg DAILY PO 11/22/19 09:00 11/22/19 09:01 Quetiapine Fumarate (SEROquel) 50 mg DAILYWSUP PO 11/22/19 17:00 11/22/19 17:28 I have reviewed the current psychotropics carefully including drug interactions. Risk benefit ratio favors no change other than as noted in my dictated progress note. Diagnosis: Problems: (1) Major neurocognitive disorder (2) Dementia with behavioral disturbance (3) Anxiety disorder (4) Dementia, vascular, with depression (5) Dementia, vascular, with delusions (6) Dementia in Alzheimer's disease with depression (7) Dementia in Alzheimer's disease with delusions (8) Impulse control disorder ELISABETH BACA MD Nov 22, 2019 21:38
[2019-11-22] MEDS: LORazepam 1 MG TABLET PO PRN (23:00)
--- NOTE | 2019-11-23 03:44 | PN ---
DATE: 11/21/2019 PSYCHIATRIC PROGRESS NOTE This late entry 11/21/2019 covers elements not covered in my initial note. SUBJECTIVE: I met with the patient evening of 11/21/2019. Per JEFFERY Espana, the patient slept 7 hours previous night. Previous night, he had a difficult night, received p.r.n., trazodone, Ativan, hydroxyzine, other hydroxyzine during the day on 11/21/2019. REVIEW OF SYSTEMS: No CV, , pulmonary, eye, ENT system symptoms on review. Reliability poor. MENTAL STATUS EXAM: Oriented to himself. Insight, judgment, recent and remote memory, attention, concentration, fund of knowledge poor, consistent with his diagnosis. IMPRESSION: Major neurocognitive disorder; Alzheimer, vascular with delusion; depression; behavioral disturbance; anxiety disorder, unspecified; impulse control disorder, unspecified. PLAN: Depakote was initiated yesterday. We will follow labs level. He is currently on Seroquel 25 mg daily, 37.5 mg at 1700, 100 mg at bedtime. We will increase the morning to 37.5 mg and 1700 to 50 mg. Continue rest unchanged. May need to adjust Depakote to reach therapeutic level. ELISABETH BACA MD DR: CAMPOS/rosenda JOB#: [id number] / [id number]
[2019-11-23 05:39] VITALS: BP 135/62
[2019-11-23] MEDS: PANTOPRAZOLE 40 MG TABLET. PO SCH (07:30)
[2019-11-23] MEDS: POLYETHYLENE GLYCOL 3350 17 GM PACKET. PO SCH (08:48)
[2019-11-23] MEDS: QUEtiapine 25 MG TABLET. PO SCH ×2 (08:49→17:00)
[2019-11-23] MEDS: SERTRALINE 100 MG TABLET. PO SCH (08:50)
[2019-11-23] MEDS: DIVALPROEX 125 MG CAP.SPRINK PO SCH ×2 (08:50→17:00)
[2019-11-23] MEDS: PRAMIPEXOLE 0.25 MG TABLET. PO SCH (08:51)
[2019-11-23] MEDS: ALLOPURINOL 300 MG TABLET. PO SCH (08:51)
[2019-11-23] MEDS: POLYVINYL ALCOHOL 1.4% OPHTH SOLUTION 15ML BOTTLE. OU SCH ×2 (09:00→20:31)
[2019-11-23] MEDS: ASPIRIN 81 MG TAB.CHEW PO SCH (09:00)
[2019-11-23] MEDS: FUROSEMIDE 20 MG TABLET PO SCH (09:00)
[2019-11-23] MEDS: LOSARTAN 25 MG TABLET. PO SCH (09:00)
[2019-11-23] MEDS: MULTIVITAMIN I-VITE TABLET. PO SCH ×2 (09:00→20:30)
[2019-11-23] MEDS: CHOLECALCIFEROL (VITAMIN D3) 1,000 UNIT TABLET PO SCH (09:00)
[2019-11-23] MEDS: METOPROLOL TART IMMED RELEASE 25 MG TABLET PO SCH ×2 (09:00→20:31)
[2019-11-23] MEDS: FOLIC ACID 1 MG TABLET PO SCH (09:00)
[2019-11-23] MEDS: CYANOCOBALAMIN (VITAMIN B-12) 100 MCG TABLET PO SCH (09:00)
[2019-11-23] MEDS: BUDESONIDE 0.5 MG/2 ML NEBU NEB SCH (11:03)
[2019-11-23 15:58] VITALS: BP 134/72
--- NOTE | 2019-11-23 18:14 | TX PLAN ---
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 Additional Admission Comments: According to the intake, pt is hitting at staff, restless, agitated and confrontational. Pt is currently exhibiting manic behavior, violent, sundowning, exit seeking and sexually inappropriate, poor sleep and a safety concern. Problems Active Problems: Agitated Combative with staff Poor sleep Sexually inappropriate behavior Inactive Problems: Medication compliance Pt Strengths/Limitations Ability for [place]: Poor Cognitive Functioning/Ability: Poor Communication Skills/Ability: Fair Insight/Judgement: Poor Intellectual Ability: Poor Physical Health: Fair Social Skills: Poor Stability in Family: Good Stability in School/Work: Poor Verbal Skills: Fair Discharge Criteria Discharge Criteria: Adequate arrangements @DC, Improved behavior, Improved mood/thought Preliminary Discharge Plan Preliminary DC Plan: Current Living Arrange. Special Precautions Fall Risk: Low Initial D/C Plan Pt will plan to return to [facility] once stable. Identified Discharge Needs: Psychiatric Follow-up Currently Utilized Resources Currently Utilized Resources/P: Pt has a primary care physician Identified Problems/Hx/Goals Objectives/Short-Term Goals Short Term Goals: Dec. Outbursts, Improved Social Skills, Medication Stabilization, Promote Coping Skill Short Term Goals in Patient's: Medication and Behavioral Modification Interventions/Frequency Staff Interventions/Frequency&: Psychiatrist to assess pt at least 3x per week Water Fabricator Operator to assess pt at least 2x per week. Nursing to complete 15 minute checks daily. Encourage pt to participate in group activities. 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 Education: Pt did graduate high school and completed his degree a year early. Community Follow-up Community Provider/Family Inpu: This is a part of pt progression and just want to make sure that he can be stable before discharging back to placement. Treatment Plan Explained Patient/Package Wrapper had this treatment plan explained to him/her as indicated by the signature below and has been given the opportunity to ask questions and make suggestions: Date: Patient/Package Wrapper Signature: Patient/Package Wrapper Decline: No (Family to participate in all aspects of care.) CLAUDE SCHREIBER Nov 23, 2019 18:14
[2019-11-23] MEDS: PRAMIPEXOLE 0.5 MG TABLET. PO SCH (20:30)
[2019-11-23] MEDS: MIRTAZAPINE 7.5 MG TABLET. PO SCH (20:30)
[2019-11-23] MEDS: QUEtiapine 100 MG TABLET. PO SCH (20:30)
[2019-11-23] MEDS: traZODone 50 MG TABLET. PO PRN (20:32)
--- NOTE | 2019-11-23 21:18 | PDOC ---
Exam Note: En Note: Please also refer to the separate dictated note~for this date of service dictated separately.~Patient seen individually. Discussed the patient with Nursing staff reviewed the chart.~Reviewed interim history and current functioning. Reviewed vital signs,~Labs/ Radiology~and current medications noted below. Continue current treatment with the changes noted in the dictated addendum note Assessment: Vital Signs/I&O: Vital Signs Date Time Temp Pulse Resp B/P (MAP) Pulse Ox O2 Delivery O2 Flow Rate FiO2 11/23/19 20:31 127 134/72 11/23/19 15:58 96.9 22 91 11/23/19 11:03 Room Air 11/22/19 06:24 2.0 I & O 11/22/19 11/22/19 11/23/19 15:00 23:00 07:00 Intake Total 240 ml 240 ml 240 ml Balance 240 ml 240 ml 240 ml Current Medications: Meds: Current Medications Medications (Trade) Dose Ordered Sig/Last Route PRN Reason Start Time Stop Time Status Last Admin Dose Admin Olanzapine (ZyPREXA ZYDIS) 2.5 mg PRN Q2HR PRN PO PSYCHOSIS 11/22/19 22:30 11/23/19 20:32 I have reviewed the current psychotropics carefully including drug interactions. Risk benefit ratio favors no change other than as noted in my dictated progress note. Diagnosis: Problems: (1) Major neurocognitive disorder (2) Dementia with behavioral disturbance (3) Anxiety disorder (4) Dementia, vascular, with depression (5) Dementia, vascular, with delusions (6) Dementia in Alzheimer's disease with depression (7) Dementia in Alzheimer's disease with delusions (8) Impulse control disorder ELISABETH BACA MD Nov 23, 2019 21:18
--- NOTE | 2019-11-23 23:46 | PN ---
DATE: 11/22/2019 PSYCHIATRIC PROGRESS NOTE This late entry 11/22/2019 covers elements not covered in my initial note. SUBJECTIVE: I met with the patient evening of 11/22/2019. Per JEFFERY Espana, the patient slept 7 hours previous night. Reportedly, he has been quite anxious, restless, especially in the evening with shower and sustained fresh skin tears. He did receive trazodone, Ativan, Seroquel, Atarax to help with this. Previous night, he went to bed at 1:00 a.m., little more confused in the evening, was undressing himself, takes meds in pudding. REVIEW OF SYSTEMS: No CV, , pulmonary, eye, ENT system symptoms on review. Reliability poor. MENTAL STATUS EXAM: Oriented to himself. Insight, judgment, recent and remote memory, attention, concentration, fund of knowledge poor, consistent with his diagnosis mentioned in my initial note. IMPRESSION: Major neurocognitive disorder, Alzheimer, vascular with delusion, depression, behavioral disturbance; anxiety disorder, unspecified; impulse control disorder, unspecified. Rest unchanged. PLAN: Change the Seroquel p.r.n. to Zyprexa 2.5 mg q.2 hours p.r.n. psychosis, agitation, max 10 mg in 24 hours. Continue rest unchanged from initial note. May discontinue the Ativan p.r.n. in a day or so. Make further adjustments in his psychotropics. Post-labs level on the Depakote. ELISABETH BACA MD DR: CAMPOS/rosenda JOB#: [id number] / [id number]
[2019-11-24] MEDS: BUDESONIDE 0.5 MG/2 ML NEBU NEB SCH ×3 (00:46→20:00)
[2019-11-24] MEDS: ACETAMINOPHEN 325 MG TABLET PO PRN (04:29)
[2019-11-24] MEDS: hydrOXYzine HCL 25 MG TABLET PO PRN (05:45)
[2019-11-24 05:49] VITALS: BP 112/68
[2019-11-24 06:52] LABS: BASO % 0 % (0-3); EOS # 0.1 x10^3/uL (0.0-0.7); EOS % 1 % (0-3); HEMATOCRIT 32.1 % (39.0-53.0); HEMOGLOBIN 10.3 g/dL (13.0-17.5); LYMPH % 23 % (24-48); MEAN CORPUSCULAR HEMOGLOBIN 34 pg (25-35); MEAN CORPUSCULAR HGB CONC 32 g/dL (31-37); MEAN CORPUSCULAR VOLUME 106 fL (79-100); MONO # 0.7 x10^3/uL (0.0-1.1); MONO % 9 % (0-9); NEUT # 5.7 x10^3uL (1.8-7.7); NEUT % 67 % (31-73); PLATELET COUNT 159 x10^3/uL (140-400); RED BLOOD COUNT 3.01 x10^6/uL (4.30-5.70); RED CELL DISTRIBUTION WIDTH 16.5 % (11.5-14.5); WHITE BLOOD COUNT 8.5 x10^3/uL (4.0-11.0)
[2019-11-24 07:09] LABS: ALBUMIN 2.8 g/dL (3.4-5.0); ALBUMIN/GLOBULIN RATIO 0.8 (1.0-1.7); ALK PHOS 143 U/L (46-116); ALT (SGPT) 18 U/L (16-63); ANION GAP 8 (6-14); AST (SGOT) 17 U/L (15-37); BLOOD UREA NITROGEN 36 mg/dL (8-26); BUN/CREATININE RATIO 19 (6-20); CALCIUM 9.1 mg/dL (8.5-10.1); CARBON DIOXIDE 29 mmol/L (21-32); CHLORIDE 113 mmol/L (98-107); CREATININE 1.9 mg/dL (0.7-1.3); GFR 33.7; GLUCOSE 181 mg/dL (70-99); POTASSIUM 5.8 mmol/L (3.5-5.1); SODIUM 150 mmol/L (136-145); TOTAL BILIRUBIN 0.7 mg/dL (0.2-1.0); TOTAL PROTEIN 6.5 g/dL (6.4-8.2)
[2019-11-24 07:11] LABS: VAL ACID 16 mcg/mL (50-100)
[2019-11-24] MEDS: POLYVINYL ALCOHOL 1.4% OPHTH SOLUTION 15ML BOTTLE. OU SCH ×2 (09:00→20:17)
[2019-11-24] MEDS: POLYETHYLENE GLYCOL 3350 17 GM PACKET. PO SCH (09:00)
[2019-11-24] MEDS: ASPIRIN 81 MG TAB.CHEW PO SCH (10:05)
[2019-11-24] MEDS: FOLIC ACID 1 MG TABLET PO SCH (10:05)
[2019-11-24] MEDS: METOPROLOL TART IMMED RELEASE 25 MG TABLET PO SCH ×2 (10:06→20:13)
[2019-11-24] MEDS: QUEtiapine 25 MG TABLET. PO SCH ×2 (10:06→16:58)
[2019-11-24] MEDS: PRAMIPEXOLE 0.25 MG TABLET. PO SCH (10:07)
[2019-11-24] MEDS: CHOLECALCIFEROL (VITAMIN D3) 1,000 UNIT TABLET PO SCH (10:07)
[2019-11-24] MEDS: PANTOPRAZOLE 40 MG TABLET. PO SCH (10:07)
[2019-11-24] MEDS: FUROSEMIDE 20 MG TABLET PO SCH (10:07)
[2019-11-24] MEDS: SERTRALINE 100 MG TABLET. PO SCH (10:07)
[2019-11-24] MEDS: MULTIVITAMIN I-VITE TABLET. PO SCH ×2 (10:07→20:13)
[2019-11-24] MEDS: ALLOPURINOL 300 MG TABLET. PO SCH (10:07)
[2019-11-24] MEDS: LOSARTAN 25 MG TABLET. PO SCH (10:08)
[2019-11-24] MEDS: DIVALPROEX 125 MG CAP.SPRINK PO SCH ×2 (10:08→16:58)
[2019-11-24] MEDS: CYANOCOBALAMIN (VITAMIN B-12) 100 MCG TABLET PO SCH (10:08)
[2019-11-24 16:21] VITALS: BP 124/78
--- NOTE | 2019-11-24 19:50 | PN ---
DATE: 11/23/2019 PSYCHIATRIC PROGRESS NOTE This late entry 11/23/2019 covers elements not covered in my initial note. SUBJECTIVE: I met with the patient evening of 11/23/2019. Per JEFFERY Camarena, the patient slept 6 hours previous night. He did alright previous evening until the aids took him to his shower. It took 5 staff members to assist him through the shower and he was agitated, aggressive, disruptive, sustained for the skin tears. Earlier this morning, he was agitated off and on. Advised the staff to give him Zyprexa p.r.n. prior to showers. He often spits out his medications, takes it crushed in pudding. REVIEW OF SYSTEMS: No CV, , pulmonary, eye, ENT system symptoms on review. Reliability poor. MENTAL STATUS EXAM: Oriented to himself. Insight, judgment, recent and remote memory, attention, concentration, fund of knowledge poor, consistent with his diagnosis. IMPRESSION: Major neurocognitive disorder, Alzheimer, vascular with delusion, depression, behavioral disturbance; anxiety disorder, unspecified; impulse control disorder, unspecified. PLAN: Discontinue the Ativan 1 mg t.i.d. p.r.n. anxiety. Seroquel p.r.n. has been changed to Zyprexa p.r.n. 2.5 mg q. 2 hours p.r.n. psychosis, agitation, max 10 mg in 24 hours. Continue scheduled Seroquel 37.5 mg daily, 50 mg at 1700, 100 mg at bedtime, Zoloft 100 mg a day, hydroxyzine p.r.n., trazodone at bedtime p.r.n., Remeron 7.5 mg at bedtime, Depakote Sprinkles 125 mg b.i.d. Check labs and valproic acid level 11/24/2019 and then adjust further as clinically indicated. ELISABETH BACA MD DR: CAMPOS/rosenda JOB#: [id number] / [id number]
[2019-11-24] MEDS: MIRTAZAPINE 7.5 MG TABLET. PO SCH (20:13)
[2019-11-24] MEDS: PRAMIPEXOLE 0.5 MG TABLET. PO SCH (20:13)
[2019-11-24] MEDS: QUEtiapine 100 MG TABLET. PO SCH (20:13)
--- NOTE | 2019-11-24 21:16 | PDOC ---
Exam Note: En Note: Please also refer to the separate dictated note~for this date of service dictated separately.~Patient seen individually. Discussed the patient with Nursing staff reviewed the chart.~Reviewed interim history and current functioning. Reviewed vital signs,~Labs/ Radiology~and current medications noted below. Continue current treatment with the changes noted in the dictated addendum note Assessment: Vital Signs/I&O: Vital Signs Date Time Temp Pulse Resp B/P (MAP) Pulse Ox O2 Delivery O2 Flow Rate FiO2 11/24/19 21:07 92 Room Air 11/24/19 20:13 82 124/78 11/24/19 16:21 97.6 16 11/22/19 06:24 2.0 I & O 11/23/19 11/23/19 11/24/19 15:00 23:00 07:00 Intake Total 480 ml 240 ml 240 ml Balance 480 ml 240 ml 240 ml Labs: Laboratory Tests Test 11/24/19 06:37 White Blood Count 8.5 x10^3/uL (4.0-11.0) Red Blood Count 3.01 x10^6/uL (4.30-5.70) L Hemoglobin 10.3 g/dL (13.0-17.5) L Hematocrit 32.1 % (39.0-53.0) L Mean Corpuscular Volume 106 fL (79-100) H Mean Corpuscular Hemoglobin 34 pg (25-35) Mean Corpuscular Hemoglobin Concent 32 g/dL (31-37) Red Cell Distribution Width 16.5 % (11.5-14.5) H Platelet Count 159 x10^3/uL (140-400) Neutrophils (%) (Auto) 67 % (31-73) Lymphocytes (%) (Auto) 23 % (24-48) L Monocytes (%) (Auto) 9 % (0-9) Eosinophils (%) (Auto) 1 % (0-3) Basophils (%) (Auto) 0 % (0-3) Neutrophils # (Auto) 5.7 x10^3uL (1.8-7.7) Lymphocytes # (Auto) 2.0 x10^3/uL (1.0-4.8) Monocytes # (Auto) 0.7 x10^3/uL (0.0-1.1) Eosinophils # (Auto) 0.1 x10^3/uL (0.0-0.7) Basophils # (Auto) 0.0 x10^3/uL (0.0-0.2) Sodium Level 150 mmol/L (136-145) H Potassium Level 5.8 mmol/L (3.5-5.1) H Chloride Level 113 mmol/L (98-107) H Carbon Dioxide Level 29 mmol/L (21-32) Anion Gap 8 (6-14) Blood Urea Nitrogen 36 mg/dL (8-26) H Creatinine 1.9 mg/dL (0.7-1.3) H Estimated GFR (Cockcroft-Gault) 33.7 BUN/Creatinine Ratio 19 (6-20) Glucose Level 181 mg/dL (70-99) H Calcium Level 9.1 mg/dL (8.5-10.1) Total Bilirubin 0.7 mg/dL (0.2-1.0) Aspartate Amino Transferase (AST) 17 U/L (15-37) Alanine Aminotransferase (ALT) 18 U/L (16-63) Alkaline Phosphatase 143 U/L (46-116) H Total Protein 6.5 g/dL (6.4-8.2) Albumin 2.8 g/dL (3.4-5.0) L Albumin/Globulin Ratio 0.8 (1.0-1.7) L Valproic Acid Level 16 mcg/mL (50-100) L Valproic Acid Last Dose Date 11/23/19 Valproic Acid Last Dose Time 1700 Current Medications: Meds: Current Medications Medications (Trade) Dose Ordered Sig/Last Route PRN Reason Start Time Stop Time Status Last Admin Dose Admin Divalproex Sodium (Depakote Sprinkles) 250 mg BID@0900,1700 PO 11/24/19 17:00 11/24/19 16:58 I have reviewed the current psychotropics carefully including drug interactions. Risk benefit ratio favors no change other than as noted in my dictated progress note. Diagnosis: Problems: (1) Major neurocognitive disorder (2) Dementia with behavioral disturbance (3) Anxiety disorder (4) Dementia, vascular, with depression (5) Dementia, vascular, with delusions (6) Dementia in Alzheimer's disease with depression (7) Dementia in Alzheimer's disease with delusions (8) Impulse control disorder ELISABETH BACA MD Nov 24, 2019:16
[2019-11-25] MEDS: traZODone 50 MG TABLET. PO PRN ×2 (01:46→20:03)
[2019-11-25 05:35] VITALS: BP 115/60
[2019-11-25] MEDS: BUDESONIDE 0.5 MG/2 ML NEBU NEB SCH ×2 (08:00→20:00)
[2019-11-25] MEDS: POLYETHYLENE GLYCOL 3350 17 GM PACKET. PO SCH (09:00)
[2019-11-25] MEDS: POLYVINYL ALCOHOL 1.4% OPHTH SOLUTION 15ML BOTTLE. OU SCH ×2 (09:00→21:00)
[2019-11-25] MEDS: MULTIVITAMIN I-VITE TABLET. PO SCH ×2 (12:03→20:02)
[2019-11-25] MEDS: FOLIC ACID 1 MG TABLET PO SCH (12:04)
[2019-11-25] MEDS: DIVALPROEX 125 MG CAP.SPRINK PO SCH ×2 (12:04→17:00)
[2019-11-25] MEDS: CHOLECALCIFEROL (VITAMIN D3) 1,000 UNIT TABLET PO SCH (12:05)
[2019-11-25] MEDS: CYANOCOBALAMIN (VITAMIN B-12) 100 MCG TABLET PO SCH (12:05)
[2019-11-25] MEDS: METOPROLOL TART IMMED RELEASE 25 MG TABLET PO SCH ×2 (12:05→20:03)
[2019-11-25] MEDS: SERTRALINE 100 MG TABLET. PO SCH (12:06)
[2019-11-25] MEDS: QUEtiapine 25 MG TABLET. PO SCH ×2 (12:06→17:00)
[2019-11-25] MEDS: ASPIRIN 81 MG TAB.CHEW PO SCH (12:06)
[2019-11-25] MEDS: ALLOPURINOL 300 MG TABLET. PO SCH (12:06)
[2019-11-25] MEDS: PRAMIPEXOLE 0.25 MG TABLET. PO SCH (12:06)
[2019-11-25] MEDS: FUROSEMIDE 20 MG TABLET PO SCH (12:07)
[2019-11-25] MEDS: PANTOPRAZOLE 40 MG TABLET. PO SCH (12:07)
[2019-11-25 16:07] VITALS: BP 122/53
[2019-11-25] MEDS ORDERED: LACTULOSE 20 GM/30 ML SOLUTION. PO ONE (19:00)
[2019-11-25] MEDS ORDERED: SODIUM POLYSTYRENE SULFONATE 15 GM/60 ML ORAL.SUSP. PO ONE (19:00)
[2019-11-25] MEDS: QUEtiapine 100 MG TABLET. PO SCH (20:02)
[2019-11-25] MEDS: MIRTAZAPINE 7.5 MG TABLET. PO SCH (20:02)
[2019-11-25] MEDS: PRAMIPEXOLE 0.5 MG TABLET. PO SCH (20:03)
--- NOTE | 2019-11-25 21:17 | PDOC ---
Exam Note: En Note: Please also refer to the separate dictated note~for this date of service dictated separately.~Patient seen individually. Discussed the patient with Nursing staff reviewed the chart.~Reviewed interim history and current functioning. Reviewed vital signs,~Labs/ Radiology~and current medications noted below. Continue current treatment with the changes noted in the dictated addendum note Assessment: Vital Signs/I&O: Vital Signs Date Time Temp Pulse Resp B/P (MAP) Pulse Ox O2 Delivery O2 Flow Rate FiO2 11/25/19 21:08 96 Room Air 11/25/19 20:03 80 122/53 11/25/19 16:07 97.6 18 11/22/19 06:24 2.0 I & O 11/24/19 11/24/19 11/25/19 15:00 23:00 07:00 Intake Total 0 ml 480 ml 240 ml Balance 0 ml 480 ml 240 ml Current Medications: Meds: Current Medications Medications (Trade) Dose Ordered Sig/Last Route PRN Reason Start Time Stop Time Status Last Admin Dose Admin Sodium Polystyrene Sulfonate (Sps 15 Gm/60 ml Suspension) 30 gm 1X ONCE PO 11/25/19 19:00 11/25/19 19:01 DC 11/25/19 20:00 Lactulose (Lactulose) 20 gm 1X ONCE PO 11/25/19 19:00 11/25/19 19:01 DC 11/25/19 20:00 I have reviewed the current psychotropics carefully including drug interactions. Risk benefit ratio favors no change other than as noted in my dictated progress note. Diagnosis: Problems: (1) Major neurocognitive disorder (2) Dementia with behavioral disturbance (3) Anxiety disorder (4) Dementia, vascular, with depression (5) Dementia, vascular, with delusions (6) Dementia in Alzheimer's disease with depression (7) Dementia in Alzheimer's disease with delusions (8) Impulse control disorder ELISABETH BACA MD Nov 25, 2019 21:16
--- NOTE | 2019-11-25 21:29 | PN ---
DATE: 11/24/2019 PSYCHIATRIC PROGRESS NOTE This late entry 11/24/2019 covers elements not covered in my initial note. SUBJECTIVE: I met with the patient evening of 11/24/2019. Per JEFFERY Camarena, the patient slept 5 hours previous night. Previous night, he was combative with dressing, was restless. Wound care came to assist him and he did receive a p.r.n. before they came. He slept all day, ate no lunch. Valproic acid level is 16, on Depakote 125 b.i.d. REVIEW OF SYSTEMS: No CV, , pulmonary, eye, ENT system symptoms on review. Reliability poor. MENTAL STATUS EXAM: Oriented to himself. Insight, judgment, recent and remote memory, attention, concentration, fund of knowledge poor, consistent with his diagnosis mentioned in my initial note. IMPRESSION: Major neurocognitive disorder, Alzheimer, vascular with delusion, depression, behavioral disturbance; anxiety disorder, unspecified; impulse control disorder, unspecified. PLAN: Increase Depakote to 250 mg p.o. b.i.d. Check CBC, CMP, valproic acid level in 3 days. Maintain Seroquel, Zoloft, Remeron at current dosage along with p.r.n. Zyprexa, hydroxyzine and trazodone. MAN Katia BACA MD DR: CAMPOS/rosenda JOB#: [id number] / [id number]
[2019-11-26] MEDS: hydrOXYzine HCL 25 MG TABLET PO PRN ×2 (01:59→21:45)
[2019-11-26] MEDS: traZODone 50 MG TABLET. PO PRN ×3 (01:59→23:17)
[2019-11-26 05:54] VITALS: BP 179/72
[2019-11-26 07:28] LABS: CALCIUM 8.4 mg/dL (8.5-10.1); CREATININE 1.6 mg/dL (0.7-1.3); GFR 41.1; POTASSIUM 4.1 mmol/L (3.5-5.1)
[2019-11-26] MEDS: MULTIVITAMIN I-VITE TABLET. PO SCH ×2 (08:21→19:47)
[2019-11-26] MEDS: POLYVINYL ALCOHOL 1.4% OPHTH SOLUTION 15ML BOTTLE. OU SCH ×2 (08:22→19:47)
[2019-11-26] MEDS: SERTRALINE 100 MG TABLET. PO SCH (08:22)
[2019-11-26] MEDS: METOPROLOL TART IMMED RELEASE 25 MG TABLET PO SCH ×2 (08:22→19:46)
[2019-11-26] MEDS: DIVALPROEX 125 MG CAP.SPRINK PO SCH ×2 (08:23→17:16)
[2019-11-26] MEDS: CHOLECALCIFEROL (VITAMIN D3) 1,000 UNIT TABLET PO SCH (08:23)
[2019-11-26] MEDS: CYANOCOBALAMIN (VITAMIN B-12) 100 MCG TABLET PO SCH (08:23)
[2019-11-26] MEDS: QUEtiapine 25 MG TABLET. PO SCH ×2 (08:23→17:16)
[2019-11-26] MEDS: ALLOPURINOL 300 MG TABLET. PO SCH (08:23)
[2019-11-26] MEDS: POLYETHYLENE GLYCOL 3350 17 GM PACKET. PO SCH (08:23)
[2019-11-26] MEDS: PRAMIPEXOLE 0.25 MG TABLET. PO SCH (08:23)
[2019-11-26] MEDS: FUROSEMIDE 20 MG TABLET PO SCH (08:24)
[2019-11-26] MEDS: PANTOPRAZOLE 40 MG TABLET. PO SCH (08:24)
[2019-11-26] MEDS: ASPIRIN 81 MG TAB.CHEW PO SCH (08:24)
[2019-11-26] MEDS: FOLIC ACID 1 MG TABLET PO SCH (08:24)
[2019-11-26] MEDS: BUDESONIDE 0.5 MG/2 ML NEBU NEB SCH ×2 (10:55→20:00)
--- NOTE | 2019-11-26 11:24 | TX PLAN ---
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 Additional Admission Comments: According to the intake, pt is hitting at staff, restless, agitated and confrontational. Pt is currently exhibiting manic behavior, violent, sundowning, exit seeking and sexually inappropriate, poor sleep and a safety concern. Problems Active Problems: Agitated Combative with staff Poor sleep Sexually inappropriate behavior Inactive Problems: Medication compliance Pt Strengths/Limitations Ability for [place]: Poor Cognitive Functioning/Ability: Poor Communication Skills/Ability: Fair Insight/Judgement: Poor Intellectual Ability: Poor Physical Health: Fair Social Skills: Poor Stability in Family: Good Stability in School/Work: Poor Verbal Skills: Fair Discharge Criteria Discharge Criteria: Adequate arrangements @DC, Improved behavior, Improved mood/thought Preliminary Discharge Plan Preliminary DC Plan: Current Living Arrange. Special Precautions Fall Risk: Low Initial D/C Plan Pt will plan to return to [facility] once stable. Identified Discharge Needs: Psychiatric Follow-up Currently Utilized Resources Currently Utilized Resources/P: Pt has a primary care physician Identified Problems/Hx/Goals Objectives/Short-Term Goals Short Term Goals: Dec. Outbursts, Improved Social Skills, Medication Stabilization, Promote Coping Skill Short Term Goals in Patient's: Medication and Behavioral Modification Interventions/Frequency Staff Interventions/Frequency&: Psychiatrist to assess pt at least 3x per week Transportation Agent to assess pt at least 2x per week. Nursing to complete 15 minute checks daily. Encourage pt to participate in group activities. 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 Education: Pt did graduate high school and completed his degree a year early. Community Follow-up Community Provider/Family Inpu: This is a part of pt progression and just want to make sure that he can be stable before discharging back to placement. Treatment Plan Explained Patient/Foster Winder had this treatment plan explained to him/her as indicated by the signature below and has been given the opportunity to ask questions and make suggestions: Date: Patient/Foster Winder Signature: Status Update Update Pt is eating roughly 75% and sleeping 2.5 hours per night. Pt continues to have some combative behaviors during times of cares and redirection. Pt often refuses medications and pulls at the dressing on his arms. Pt is currently on Seroquel, Zoloft, Depakote, which will be increased as pt VPA is 16; and Trazodone for sleep. Pt will plan to return to [facility] once he is stable. CLAUDE SCHREIBER Nov 26, 2019 11:23
[2019-11-26 15:46] VITALS: BP 108/57
[2019-11-26] MEDS: MIRTAZAPINE 7.5 MG TABLET. PO SCH (19:46)
[2019-11-26] MEDS: QUEtiapine 100 MG TABLET. PO SCH (19:46)
[2019-11-26] MEDS: PRAMIPEXOLE 0.5 MG TABLET. PO SCH (19:46)
--- NOTE | 2019-11-26 21:22 | PDOC ---
Exam Note: En Note: Please also refer to the separate dictated note~for this date of service dictated separately.~Patient seen individually. Discussed the patient with Nursing staff reviewed the chart.~Reviewed interim history and current functioning. Reviewed vital signs,~Labs/ Radiology~and current medications noted below. Continue current treatment with the changes noted in the dictated addendum note Assessment: Vital Signs/I&O: Vital Signs Date Time Temp Pulse Resp B/P (MAP) Pulse Ox O2 Delivery O2 Flow Rate FiO2 11/26/19 19:46 65 114/62 11/26/19 15:46 98.2 16 94 11/26/19 10:55 Room Air 11/22/19 06:24 2.0 I & O 11/25/19 11/25/19 11/26/19 15:00 23:00 07:00 Intake Total 480 ml 1080 ml Balance 480 ml 1080 ml Labs: Laboratory Tests Test 11/26/19 07:00 Sodium Level 145 mmol/L (136-145) Potassium Level 4.1 mmol/L (3.5-5.1) Chloride Level 108 mmol/L (98-107) H Carbon Dioxide Level 27 mmol/L (21-32) Anion Gap 10 (6-14) Blood Urea Nitrogen 35 mg/dL (8-26) H Creatinine 1.6 mg/dL (0.7-1.3) H Estimated GFR (Cockcroft-Gault) 41.1 Glucose Level 80 mg/dL (70-99) Calcium Level 8.4 mg/dL (8.5-10.1) L Current Medications: I have reviewed the current psychotropics carefully including drug interactions. Risk benefit ratio favors no change other than as noted in my dictated progress note. Diagnosis: Problems: (1) Major neurocognitive disorder (2) Dementia with behavioral disturbance (3) Anxiety disorder (4) Dementia, vascular, with depression (5) Dementia, vascular, with delusions (6) Dementia in Alzheimer's disease with depression (7) Dementia in Alzheimer's disease with delusions (8) Impulse control disorder ELISABETH BACA MD Nov 26, 2019 21:21
[2019-11-27 06:37] VITALS: BP 99/56
[2019-11-27] MEDS: BUDESONIDE 0.5 MG/2 ML NEBU NEB SCH ×2 (08:00→23:03)
[2019-11-27] MEDS: POLYVINYL ALCOHOL 1.4% OPHTH SOLUTION 15ML BOTTLE. OU SCH ×2 (08:16→20:39)
[2019-11-27] MEDS: SERTRALINE 100 MG TABLET. PO SCH (08:17)
[2019-11-27] MEDS: DIVALPROEX 125 MG CAP.SPRINK PO SCH ×2 (08:17→17:08)
[2019-11-27] MEDS: ASPIRIN 81 MG TAB.CHEW PO SCH (08:17)
[2019-11-27] MEDS: MULTIVITAMIN I-VITE TABLET. PO SCH ×2 (08:17→20:39)
[2019-11-27] MEDS: CYANOCOBALAMIN (VITAMIN B-12) 100 MCG TABLET PO SCH (08:17)
[2019-11-27] MEDS: FOLIC ACID 1 MG TABLET PO SCH (08:17)
[2019-11-27] MEDS: FUROSEMIDE 20 MG TABLET PO SCH (08:18)
[2019-11-27] MEDS: QUEtiapine 25 MG TABLET. PO SCH ×2 (08:18→17:08)
[2019-11-27] MEDS: ALLOPURINOL 300 MG TABLET. PO SCH (08:18)
[2019-11-27] MEDS: CHOLECALCIFEROL (VITAMIN D3) 1,000 UNIT TABLET PO SCH (08:18)
[2019-11-27] MEDS: PANTOPRAZOLE 40 MG TABLET. PO SCH (08:18)
[2019-11-27] MEDS: PRAMIPEXOLE 0.25 MG TABLET. PO SCH (08:18)
[2019-11-27] MEDS: POLYETHYLENE GLYCOL 3350 17 GM PACKET. PO SCH (08:19)
[2019-11-27] MEDS: METOPROLOL TART IMMED RELEASE 25 MG TABLET PO SCH ×2 (08:19→20:40)
[2019-11-27 16:17] VITALS: BP 145/90
--- NOTE | 2019-11-27 18:35 | PN ---
DATE: 11/25/2019 PSYCHIATRIC PROGRESS NOTE This late entry 11/25/2019 covers elements not covered in my initial note. SUBJECTIVE: I met with the patient evening of 11/25/2019. Per JEFFERY Camarena, the patient slept 5-1/2 hours previous night. He ate his breakfast and slept until lunch and thereafter was pleasant. He has been cooperative with dressing change on his arm. REVIEW OF SYSTEMS: No CV, , pulmonary, eye, ENT system symptoms on review. Gait unsteady with walker. Reliability poor. MENTAL STATUS EXAM: Oriented to himself. Insight, judgment, recent and remote memory, attention, concentration, fund of knowledge poor, consistent with his diagnosis mentioned in my initial note. PLAN: No change from initial note. MAN Katia BACA MD DR: CAMPOS/rosenda JOB#: [id number] / [id number]
--- NOTE | 2019-11-27 18:38 | PN ---
DATE: 11/26/2019 PSYCHIATRIC PROGRESS NOTE This late entry 11/26/2019 covers elements not covered in my initial note. SUBJECTIVE: I met with the patient in the evening and staffed at a treatment team meeting with the entire team in the morning. The patient's daughter, Crystal, attended the treatment team meeting. We had a lengthy discussion about the patient's diagnosis, progress, current psychotropics. He is sleeping average 3 hours. Appetite 75%. Combative, confused at times, hitting, kicking. It took 4 staff members for ADLs with him and he was pulling on his dressing. This was a couple of days previously. He has been calmer intermittently. REVIEW OF SYSTEMS: Ambulation impaired with walker. No CV, , pulmonary, eye system symptoms on review. MENTAL STATUS EXAM: Oriented to himself. Insight, judgment, recent and remote memory, attention, concentration, fund of knowledge poor, consistent with his diagnosis mentioned in my initial note. PLAN: No change from initial note. MAN Katia BACA MD DR: CAMPOS/rosenda JOB#: [id number] / [id number]
[2019-11-27] MEDS: PRAMIPEXOLE 0.5 MG TABLET. PO SCH (20:39)
[2019-11-27] MEDS: QUEtiapine 100 MG TABLET. PO SCH (20:39)
[2019-11-27] MEDS: MIRTAZAPINE 7.5 MG TABLET. PO SCH (20:39)
--- NOTE | 2019-11-27 21:17 | PDOC ---
Exam Note: En Note: Please also refer to the separate dictated note~for this date of service dictated separately.~Patient seen individually. Discussed the patient with Nursing staff reviewed the chart.~Reviewed interim history and current functioning. Reviewed vital signs,~Labs/ Radiology~and current medications noted below. Continue current treatment with the changes noted in the dictated addendum note Assessment: Vital Signs/I&O: Vital Signs Date Time Temp Pulse Resp B/P (MAP) Pulse Ox O2 Delivery O2 Flow Rate FiO2 11/27/19 20:40 69 145/90 11/27/19 16:17 98.3 18 92 11/27/19 10:03 Room Air 11/22/19 06:24 2.0 I & O 11/26/19 11/26/19 11/27/19 15:00 23:00 07:00 Intake Total 0 ml 240 ml 240 ml Balance 0 ml 240 ml 240 ml Current Medications: I have reviewed the current psychotropics carefully including drug interactions. Risk benefit ratio favors no change other than as noted in my dictated progress note. Diagnosis: Problems: (1) Major neurocognitive disorder (2) Dementia with behavioral disturbance (3) Anxiety disorder (4) Dementia, vascular, with depression (5) Dementia, vascular, with delusions (6) Dementia in Alzheimer's disease with depression (7) Dementia in Alzheimer's disease with delusions (8) Impulse control disorder ELISABETH BACA MD Nov 27, 2019 21:17
[2019-11-27] MEDS: ACETAMINOPHEN 325 MG TABLET PO PRN (22:14)
[2019-11-27] MEDS: traZODone 50 MG TABLET. PO PRN (23:19)
[2019-11-27] MEDS: hydrOXYzine HCL 25 MG TABLET PO PRN (23:20)
[2019-11-28 06:24] VITALS: BP 175/84
[2019-11-28] MEDS: QUEtiapine 25 MG TABLET. PO SCH ×2 (09:00→17:31)
[2019-11-28] MEDS: METOPROLOL TART IMMED RELEASE 25 MG TABLET PO SCH ×2 (09:00→20:36)
[2019-11-28] MEDS: SERTRALINE 100 MG TABLET. PO SCH (09:00)
[2019-11-28] MEDS: CYANOCOBALAMIN (VITAMIN B-12) 100 MCG TABLET PO SCH (09:00)
[2019-11-28] MEDS: MULTIVITAMIN I-VITE TABLET. PO SCH ×2 (09:00→20:35)
[2019-11-28] MEDS: ASPIRIN 81 MG TAB.CHEW PO SCH (09:00)
[2019-11-28] MEDS: DIVALPROEX 125 MG CAP.SPRINK PO SCH ×2 (09:00→17:31)
[2019-11-28] MEDS: POLYETHYLENE GLYCOL 3350 17 GM PACKET. PO SCH (09:00)
[2019-11-28] MEDS: CHOLECALCIFEROL (VITAMIN D3) 1,000 UNIT TABLET PO SCH (09:00)
[2019-11-28] MEDS: FOLIC ACID 1 MG TABLET PO SCH (09:00)
[2019-11-28] MEDS: PRAMIPEXOLE 0.25 MG TABLET. PO SCH (09:00)
[2019-11-28] MEDS: ALLOPURINOL 300 MG TABLET. PO SCH (09:00)
[2019-11-28] MEDS: POLYVINYL ALCOHOL 1.4% OPHTH SOLUTION 15ML BOTTLE. OU SCH ×2 (09:00→20:35)
[2019-11-28] MEDS: FUROSEMIDE 20 MG TABLET PO SCH (09:00)
[2019-11-28] MEDS: PANTOPRAZOLE 40 MG TABLET. PO SCH (09:07)
[2019-11-28 10:18] LABS: BASO % 0 % (0-3); EOS # 0.1 x10^3/uL (0.0-0.7); EOS % 2 % (0-3); HEMATOCRIT 31.3 % (39.0-53.0); HEMOGLOBIN 10.1 g/dL (13.0-17.5); LYMPH # 1.4 x10^3/uL (1.0-4.8); LYMPH % 20 % (24-48); MEAN CORPUSCULAR HEMOGLOBIN 34 pg (25-35); MEAN CORPUSCULAR HGB CONC 32 g/dL (31-37); MEAN CORPUSCULAR VOLUME 104 fL (79-100); MONO # 0.7 x10^3/uL (0.0-1.1); MONO % 9 % (0-9); NEUT # 4.9 x10^3uL (1.8-7.7); NEUT % 69 % (31-73); PLATELET COUNT 161 x10^3/uL (140-400); RED CELL DISTRIBUTION WIDTH 16.1 % (11.5-14.5); WHITE BLOOD COUNT 7.1 x10^3/uL (4.0-11.0)
[2019-11-28 10:27] LABS: ALBUMIN 2.6 g/dL (3.4-5.0); ALBUMIN/GLOBULIN RATIO 0.7 (1.0-1.7); ALK PHOS 141 U/L (46-116); ALT (SGPT) 16 U/L (16-63); ANION GAP 6 (6-14); AST (SGOT) 17 U/L (15-37); BLOOD UREA NITROGEN 40 mg/dL (8-26); BUN/CREATININE RATIO 24 (6-20); CALCIUM 8.7 mg/dL (8.5-10.1); CARBON DIOXIDE 30 mmol/L (21-32); CHLORIDE 107 mmol/L (98-107); CREATININE 1.7 mg/dL (0.7-1.3); GFR 38.3; GLUCOSE 157 mg/dL (70-99); POTASSIUM 4.6 mmol/L (3.5-5.1); SODIUM 143 mmol/L (136-145); TOTAL BILIRUBIN 0.6 mg/dL (0.2-1.0); TOTAL PROTEIN 6.5 g/dL (6.4-8.2); VAL ACID 21 mcg/mL (50-100)
[2019-11-28] MEDS: BUDESONIDE 0.5 MG/2 ML NEBU NEB SCH ×2 (10:59→20:00)
[2019-11-28 16:21] VITALS: BP 121/74
[2019-11-28 18:30] VITALS: BP 128/66
[2019-11-28] MEDS: PRAMIPEXOLE 0.5 MG TABLET. PO SCH (20:36)
[2019-11-28] MEDS: MIRTAZAPINE 7.5 MG TABLET. PO SCH (20:37)
[2019-11-28] MEDS: QUEtiapine 100 MG TABLET. PO SCH (20:37)
[2019-11-28] MEDS: traZODone 50 MG TABLET. PO PRN (20:37)
--- NOTE | 2019-11-28 21:16 | PDOC ---
Exam Note: En Note: Please also refer to the separate dictated note~for this date of service dictated separately.~Patient seen individually. Discussed the patient with Nursing staff reviewed the chart.~Reviewed interim history and current functioning. Reviewed vital signs,~Labs/ Radiology~and current medications noted below. Continue current treatment with the changes noted in the dictated addendum note Assessment: Vital Signs/I&O: Vital Signs Date Time Temp Pulse Resp B/P (MAP) Pulse Ox O2 Delivery O2 Flow Rate FiO2 11/28/19 20:36 81 128/66 11/28/19 20:04 96 Room Air 11/28/19 18:30 97.5 20 I & O 11/27/19 11/27/19 11/28/19 15:00 23:00 07:00 Intake Total 0 ml 240 ml 120 ml Balance 0 ml 240 ml 120 ml Labs: Laboratory Tests Test 11/28/19 09:32 White Blood Count 7.1 x10^3/uL (4.0-11.0) Red Blood Count 3.00 x10^6/uL (4.30-5.70) L Hemoglobin 10.1 g/dL (13.0-17.5) L Hematocrit 31.3 % (39.0-53.0) L Mean Corpuscular Volume 104 fL (79-100) H Mean Corpuscular Hemoglobin 34 pg (25-35) Mean Corpuscular Hemoglobin Concent 32 g/dL (31-37) Red Cell Distribution Width 16.1 % (11.5-14.5) H Platelet Count 161 x10^3/uL (140-400) Neutrophils (%) (Auto) 69 % (31-73) Lymphocytes (%) (Auto) 20 % (24-48) L Monocytes (%) (Auto) 9 % (0-9) Eosinophils (%) (Auto) 2 % (0-3) Basophils (%) (Auto) 0 % (0-3) Neutrophils # (Auto) 4.9 x10^3uL (1.8-7.7) Lymphocytes # (Auto) 1.4 x10^3/uL (1.0-4.8) Monocytes # (Auto) 0.7 x10^3/uL (0.0-1.1) Eosinophils # (Auto) 0.1 x10^3/uL (0.0-0.7) Basophils # (Auto) 0.0 x10^3/uL (0.0-0.2) Sodium Level 143 mmol/L (136-145) Potassium Level 4.6 mmol/L (3.5-5.1) Chloride Level 107 mmol/L (98-107) Carbon Dioxide Level 30 mmol/L (21-32) Anion Gap 6 (6-14) Blood Urea Nitrogen 40 mg/dL (8-26) H Creatinine 1.7 mg/dL (0.7-1.3) H Estimated GFR (Cockcroft-Gault) 38.3 BUN/Creatinine Ratio 24 (6-20) H Glucose Level 157 mg/dL (70-99) H Calcium Level 8.7 mg/dL (8.5-10.1) Total Bilirubin 0.6 mg/dL (0.2-1.0) Aspartate Amino Transferase (AST) 17 U/L (15-37) Alanine Aminotransferase (ALT) 16 U/L (16-63) Alkaline Phosphatase 141 U/L (46-116) H Total Protein 6.5 g/dL (6.4-8.2) Albumin 2.6 g/dL (3.4-5.0) L Albumin/Globulin Ratio 0.7 (1.0-1.7) L Valproic Acid Level 21 mcg/mL (50-100) L Valproic Acid Last Dose Date 11/27/19 Valproic Acid Last Dose Time 1700 Current Medications: I have reviewed the current psychotropics carefully including drug interactions. Risk benefit ratio favors no change other than as noted in my dictated progress note. Diagnosis: Problems: (1) Major neurocognitive disorder (2) Dementia with behavioral disturbance (3) Anxiety disorder (4) Dementia, vascular, with depression (5) Dementia, vascular, with delusions (6) Dementia in Alzheimer's disease with depression (7) Dementia in Alzheimer's disease with delusions (8) Impulse control disorder ELISABETH BACA MD Nov 28, 2019 21:16
[2019-11-28] MEDS: hydrOXYzine HCL 25 MG TABLET PO PRN (22:31)
[2019-11-29 06:29] VITALS: BP 101/74
[2019-11-29] MEDS: BUDESONIDE 0.5 MG/2 ML NEBU NEB SCH ×2 (08:00→20:00)
[2019-11-29] MEDS: ASPIRIN 81 MG TAB.CHEW PO SCH (08:42)
[2019-11-29] MEDS: POLYVINYL ALCOHOL 1.4% OPHTH SOLUTION 15ML BOTTLE. OU SCH ×2 (08:42→20:19)
[2019-11-29] MEDS: PANTOPRAZOLE 40 MG TABLET. PO SCH (08:42)
[2019-11-29] MEDS: DIVALPROEX 125 MG CAP.SPRINK PO SCH ×2 (08:43→17:19)
[2019-11-29] MEDS: MULTIVITAMIN I-VITE TABLET. PO SCH ×2 (08:43→20:15)
[2019-11-29] MEDS: FOLIC ACID 1 MG TABLET PO SCH (08:43)
[2019-11-29] MEDS: FUROSEMIDE 20 MG TABLET PO SCH (08:44)
[2019-11-29] MEDS: POLYETHYLENE GLYCOL 3350 17 GM PACKET. PO SCH (08:45)
[2019-11-29] MEDS: METOPROLOL TART IMMED RELEASE 25 MG TABLET PO SCH ×2 (08:45→20:18)
[2019-11-29] MEDS: PRAMIPEXOLE 0.25 MG TABLET. PO SCH (08:46)
[2019-11-29] MEDS: CYANOCOBALAMIN (VITAMIN B-12) 100 MCG TABLET PO SCH (08:47)
[2019-11-29] MEDS: CHOLECALCIFEROL (VITAMIN D3) 1,000 UNIT TABLET PO SCH (08:47)
[2019-11-29] MEDS: QUEtiapine 25 MG TABLET. PO SCH ×2 (08:47→17:19)
[2019-11-29] MEDS: ALLOPURINOL 300 MG TABLET. PO SCH (08:48)
[2019-11-29] MEDS: SERTRALINE 100 MG TABLET. PO SCH (08:48)
[2019-11-29 16:13] VITALS: BP 119/80
[2019-11-29] MEDS: QUEtiapine 100 MG TABLET. PO SCH (20:15)
[2019-11-29] MEDS: PRAMIPEXOLE 0.5 MG TABLET. PO SCH (20:15)
[2019-11-29] MEDS: MIRTAZAPINE 7.5 MG TABLET. PO SCH (20:18)
--- NOTE | 2019-11-29 21:23 | PDOC ---
Exam Note: En Note: Please also refer to the separate dictated note~for this date of service dictated separately.~Patient seen individually. Discussed the patient with Nursing staff reviewed the chart.~Reviewed interim history and current functioning. Reviewed vital signs,~Labs/ Radiology~and current medications noted below. Continue current treatment with the changes noted in the dictated addendum note Assessment: Vital Signs/I&O: Vital Signs Date Time Temp Pulse Resp B/P (MAP) Pulse Ox O2 Delivery O2 Flow Rate FiO2 11/29/19 20:19 95 Room Air 11/29/19 20:18 77 119/80 11/29/19 16:13 97.1 20 I & O 11/28/19 11/28/19 11/29/19 15:00 23:00 07:00 Intake Total 700 ml 360 ml 120 ml Balance 700 ml 360 ml 120 ml Current Medications: I have reviewed the current psychotropics carefully including drug interactions. Risk benefit ratio favors no change other than as noted in my dictated progress note. Diagnosis: Problems: (1) Major neurocognitive disorder (2) Dementia with behavioral disturbance (3) Anxiety disorder (4) Dementia, vascular, with depression (5) Dementia, vascular, with delusions (6) Dementia in Alzheimer's disease with depression (7) Dementia in Alzheimer's disease with delusions (8) Impulse control disorder ELISABETH BACA MD Nov 29, 2019 21:23
--- NOTE | 2019-11-29 23:12 | PN ---
DATE: 11/27/2019 PSYCHIATRIC PROGRESS NOTE This late entry 11/27/2019 covers elements not covered in my initial note. SUBJECTIVE: I met with the patient evening of 11/27/2019. Per JEFFERY Murillo, the patient slept until 3:00 a.m. and then was up for a while during the life skills teacher, slept till noon. Quite disorganized, agitated at night, took Boost in the morning, but did eat his lunch. REVIEW OF SYSTEMS: Ambulation impaired, with walker and he has multiple skin tears very fragile skin. No CV, , pulmonary, eye, ENT system symptoms on review. MENTAL STATUS EXAM: Oriented to himself. Insight, judgment, recent and remote memory, attention, concentration, fund of knowledge poor, consistent with his diagnosis mentioned in my initial note. PLAN: No change from initial note. Check labs level on the Depakote. Adjust further as clinically indicated. Rest unchanged. MAN Katia BACA MD DR: CAMPOS/rosenda JOB#: [id number] / [id number]
[2019-11-30] MEDS: BUDESONIDE 0.5 MG/2 ML NEBU NEB SCH ×2 (08:00→20:00)
[2019-11-30] MEDS: POLYETHYLENE GLYCOL 3350 17 GM PACKET. PO SCH (08:23)
[2019-11-30] MEDS: SERTRALINE 100 MG TABLET. PO SCH (08:24)
[2019-11-30] MEDS: FUROSEMIDE 20 MG TABLET PO SCH (08:24)
[2019-11-30] MEDS: DIVALPROEX 125 MG CAP.SPRINK PO SCH ×2 (08:24→17:17)
[2019-11-30] MEDS: PRAMIPEXOLE 0.25 MG TABLET. PO SCH (08:25)
[2019-11-30] MEDS: METOPROLOL TART IMMED RELEASE 25 MG TABLET PO SCH ×2 (08:25→20:02)
[2019-11-30] MEDS: MULTIVITAMIN I-VITE TABLET. PO SCH ×2 (08:25→20:00)
[2019-11-30] MEDS: PANTOPRAZOLE 40 MG TABLET. PO SCH (08:26)
[2019-11-30] MEDS: CYANOCOBALAMIN (VITAMIN B-12) 100 MCG TABLET PO SCH (08:26)
[2019-11-30] MEDS: ASPIRIN 81 MG TAB.CHEW PO SCH (08:26)
[2019-11-30] MEDS: CHOLECALCIFEROL (VITAMIN D3) 1,000 UNIT TABLET PO SCH (08:26)
[2019-11-30] MEDS: FOLIC ACID 1 MG TABLET PO SCH (08:26)
[2019-11-30] MEDS: QUEtiapine 25 MG TABLET. PO SCH ×2 (08:26→17:17)
[2019-11-30] MEDS: ALLOPURINOL 300 MG TABLET. PO SCH (08:26)
[2019-11-30] MEDS: POLYVINYL ALCOHOL 1.4% OPHTH SOLUTION 15ML BOTTLE. OU SCH ×2 (08:27→20:00)
--- NOTE | 2019-11-30 11:43 | PN ---
DATE: 11/28/2019 PSYCHIATRIC PROGRESS NOTE This late entry 11/28/2019 covers elements not covered in my initial note. SUBJECTIVE: I met with the patient in the evening. Per JEFFERY Pedraza, the patient slept 4-3/4 hours previous night. He has been confused, wandering all day and intrusive. He was found in another female patient's room in the evening, had to be walked out. He sustained more skin tears, very fragile skin. He became agitated earlier in the day, received trazodone, Zyprexa Zydis, Atarax, which was helpful and then a dressing change was done. He fell after dinner. No injuries. REVIEW OF SYSTEMS: Ambulation impaired with walker. No CV, , pulmonary, eye system symptoms on review. MENTAL STATUS EXAM: Oriented to himself. Insight, judgment, recent and remote memory, attention, concentration, fund of knowledge poor, consistent with his diagnosis. IMPRESSION: Major neurocognitive disorder, Alzheimer, vascular with delusion, depression, behavioral disturbance; anxiety disorder, unspecified; impulse control disorder, unspecified. PLAN: Continue Seroquel 37.5 mg daily, 50 mg at 1700 hours, 100 mg at bedtime, Zoloft 100 mg a day, hydroxyzine 25 mg t.i.d. p.r.n., Zyprexa p.r.n., trazodone for insomnia, Remeron 7.5 mg at bedtime, Depakote 250 b.i.d. Check labs and valproic acid level, then adjust Depakote if agitation persists. MAN Katia BACA MD DR: CAMPOS/rosenda JOB#: [id number] / [id number]
--- NOTE | 2019-11-30 11:45 | PN ---
DATE: 11/29/2019 PSYCHIATRIC PROGRESS NOTE This late entry 11/29/2019 covers elements not covered in my initial note. SUBJECTIVE: I met with the patient evening of 11/29/2019. Per JEFFERY Quinones, the patient slept 5 hours previous night. Previous night, he was noted by nursing staff to be "awesome." He was easy to redirect, slightly combative earlier in the morning Dressing changes have been done. He has new bandages since the prior ones were inadequate. He has been drowsy in the morning, later wandering. REVIEW OF SYSTEMS: Ambulation impaired with walker. No CV, , pulmonary, eye, ENT system symptoms on review. Reliability poor. MENTAL STATUS EXAM: Oriented to himself. Insight, judgment, recent and remote memory, attention, concentration, fund of knowledge poor, consistent with his diagnosis mentioned in my initial note. PLAN: No change from initial note. ELISABETH BACA MD DR: CAMPOS/rosenda JOB#: [id number] / [id number]
[2019-11-30 15:48] VITALS: BP 118/51
[2019-11-30] MEDS: QUEtiapine 100 MG TABLET. PO SCH (20:01)
[2019-11-30] MEDS: PRAMIPEXOLE 0.5 MG TABLET. PO SCH (20:01)
[2019-11-30] MEDS: MIRTAZAPINE 7.5 MG TABLET. PO SCH (20:01)
[2019-11-30] MEDS: hydrOXYzine HCL 25 MG TABLET PO PRN (20:02)
[2019-11-30] MEDS: traZODone 50 MG TABLET. PO PRN (20:02)
--- NOTE | 2019-11-30 21:15 | PDOC ---
Exam Note: En Note: Please also refer to the separate dictated note~for this date of service dictated separately.~Patient seen individually. Discussed the patient with Nursing staff reviewed the chart.~Reviewed interim history and current functioning. Reviewed vital signs,~Labs/ Radiology~and current medications noted below. Continue current treatment with the changes noted in the dictated addendum note Assessment: Vital Signs/I&O: Vital Signs Date Time Temp Pulse Resp B/P (MAP) Pulse Ox O2 Delivery O2 Flow Rate FiO2 11/30/19 20:02 68 118/51 11/30/19 15:48 97.2 18 91 11/30/19 09:57 Room Air I & O 11/29/19 11/29/19 11/30/19 15:00 23:00 07:00 Intake Total 360 ml 1000 ml 240 ml Balance 360 ml 1000 ml 240 ml Current Medications: I have reviewed the current psychotropics carefully including drug interactions. Risk benefit ratio favors no change other than as noted in my dictated progress note. Diagnosis: Problems: (1) Major neurocognitive disorder (2) Dementia with behavioral disturbance (3) Anxiety disorder (4) Dementia, vascular, with depression (5) Dementia, vascular, with delusions (6) Dementia in Alzheimer's disease with depression (7) Dementia in Alzheimer's disease with delusions (8) Impulse control disorder ELISABETH BACA MD Nov 30, 2019 21:15
[2019-12-01 06:06] VITALS: BP 115/61
[2019-12-01] MEDS: BUDESONIDE 0.5 MG/2 ML NEBU NEB SCH ×2 (08:00→22:00)
[2019-12-01] MEDS: FUROSEMIDE 20 MG TABLET PO SCH (08:31)
[2019-12-01] MEDS: PANTOPRAZOLE 40 MG TABLET. PO SCH (08:31)
[2019-12-01] MEDS: QUEtiapine 25 MG TABLET. PO SCH ×2 (08:31→17:16)
[2019-12-01] MEDS: CHOLECALCIFEROL (VITAMIN D3) 1,000 UNIT TABLET PO SCH (08:31)
[2019-12-01] MEDS: ALLOPURINOL 300 MG TABLET. PO SCH (08:32)
[2019-12-01] MEDS: DIVALPROEX 125 MG CAP.SPRINK PO SCH ×2 (08:32→17:15)
[2019-12-01] MEDS: CYANOCOBALAMIN (VITAMIN B-12) 100 MCG TABLET PO SCH (08:32)
[2019-12-01] MEDS: METOPROLOL TART IMMED RELEASE 25 MG TABLET PO SCH ×2 (08:32→19:54)
[2019-12-01] MEDS: FOLIC ACID 1 MG TABLET PO SCH (08:32)
[2019-12-01] MEDS: ASPIRIN 81 MG TAB.CHEW PO SCH (08:32)
[2019-12-01] MEDS: PRAMIPEXOLE 0.25 MG TABLET. PO SCH (08:32)
[2019-12-01] MEDS: POLYETHYLENE GLYCOL 3350 17 GM PACKET. PO SCH (08:33)
[2019-12-01] MEDS: SERTRALINE 100 MG TABLET. PO SCH (08:33)
[2019-12-01] MEDS: POLYVINYL ALCOHOL 1.4% OPHTH SOLUTION 15ML BOTTLE. OU SCH ×2 (08:33→19:58)
[2019-12-01] MEDS: MULTIVITAMIN I-VITE TABLET. PO SCH ×2 (08:33→19:54)
[2019-12-01 16:08] VITALS: BP 108/62
[2019-12-01] MEDS: hydrOXYzine HCL 25 MG TABLET PO PRN (18:45)
[2019-12-01] MEDS: MIRTAZAPINE 7.5 MG TABLET. PO SCH (19:55)
[2019-12-01] MEDS: QUEtiapine 100 MG TABLET. PO SCH (19:55)
[2019-12-01] MEDS: PRAMIPEXOLE 0.5 MG TABLET. PO SCH (19:55)
--- NOTE | 2019-12-01 21:25 | PDOC ---
Exam Note: En Note: Please also refer to the separate dictated note~for this date of service dictated separately.~Patient seen individually. Discussed the patient with Nursing staff reviewed the chart.~Reviewed interim history and current functioning. Reviewed vital signs,~Labs/ Radiology~and current medications noted below. Continue current treatment with the changes noted in the dictated addendum note Assessment: Vital Signs/I&O: Vital Signs Date Time Temp Pulse Resp B/P (MAP) Pulse Ox O2 Delivery O2 Flow Rate FiO2 12/01/19 19:54 62 108/62 12/01/19 16:08 98.3 18 94 12/01/19 11:13 Room Air I & O 11/30/19 11/30/19 12/01/19 14:59 22:59 06:59 Intake Total 600 ml 360 ml 120 ml Balance 600 ml 360 ml 120 ml Current Medications: I have reviewed the current psychotropics carefully including drug interactions. Risk benefit ratio favors no change other than as noted in my dictated progress note. Diagnosis: Problems: (1) Major neurocognitive disorder (2) Dementia with behavioral disturbance (3) Anxiety disorder (4) Dementia, vascular, with depression (5) Dementia, vascular, with delusions (6) Dementia in Alzheimer's disease with depression (7) Dementia in Alzheimer's disease with delusions (8) Impulse control disorder ELISABETH BACA MD Dec 01, 2019 21:25
[2019-12-01] MEDS: traZODone 50 MG TABLET. PO PRN (23:39)
--- NOTE | 2019-12-02 00:06 | PN ---
DATE: 11/30/2019 PSYCHIATRIC PROGRESS NOTE This late entry 11/30/2019 covers elements not covered in my initial note. SUBJECTIVE: I met with the patient evening of 11/30/2019. Per JEFFERY Camarena, the patient slept 6-3/4 hours previous night. He was quite anxious, restless in the morning, urinated on the floor in the day, room in the morning and later did it again. He takes meds crushed in pudding. REVIEW OF SYSTEMS: Ambulation impaired with walker. No CV, , pulmonary, eye, ENT system symptoms on review. Reliability poor. MENTAL STATUS EXAM: Oriented to himself. Insight, judgment, recent and remote memory, attention, concentration, fund of knowledge poor, consistent with his diagnosis mentioned in my initial note. PLAN: No change from initial note. MAN Katia BACA MD DR: CAMPOS/rosenda JOB#: [id number] / [id number]
[2019-12-02] MEDS: ACETAMINOPHEN 325 MG TABLET PO PRN (00:26)
[2019-12-02] MEDS: traZODone 50 MG TABLET. PO PRN ×2 (00:26→20:39)
[2019-12-02] MEDS: BUDESONIDE 0.5 MG/2 ML NEBU NEB SCH ×2 (08:00→22:42)
[2019-12-02] MEDS: POLYETHYLENE GLYCOL 3350 17 GM PACKET. PO SCH (08:12)
[2019-12-02] MEDS: METOPROLOL TART IMMED RELEASE 25 MG TABLET PO SCH ×2 (08:12→20:39)
[2019-12-02] MEDS: MULTIVITAMIN I-VITE TABLET. PO SCH ×2 (08:13→20:38)
[2019-12-02] MEDS: FOLIC ACID 1 MG TABLET PO SCH (08:13)
[2019-12-02] MEDS: FUROSEMIDE 20 MG TABLET PO SCH (08:13)
[2019-12-02] MEDS: SERTRALINE 100 MG TABLET. PO SCH (08:14)
[2019-12-02] MEDS: DIVALPROEX 125 MG CAP.SPRINK PO SCH ×2 (08:14→16:47)
[2019-12-02] MEDS: ALLOPURINOL 300 MG TABLET. PO SCH (08:15)
[2019-12-02] MEDS: ASPIRIN 81 MG TAB.CHEW PO SCH (08:15)
[2019-12-02] MEDS: QUEtiapine 25 MG TABLET. PO SCH ×2 (08:15→16:47)
[2019-12-02] MEDS: CHOLECALCIFEROL (VITAMIN D3) 1,000 UNIT TABLET PO SCH (08:15)
[2019-12-02] MEDS: CYANOCOBALAMIN (VITAMIN B-12) 100 MCG TABLET PO SCH (08:15)
[2019-12-02] MEDS: PANTOPRAZOLE 40 MG TABLET. PO SCH (08:15)
[2019-12-02] MEDS: PRAMIPEXOLE 0.25 MG TABLET. PO SCH (08:15)
[2019-12-02] MEDS: POLYVINYL ALCOHOL 1.4% OPHTH SOLUTION 15ML BOTTLE. OU SCH ×2 (08:16→20:39)
[2019-12-02 15:54] VITALS: BP 108/64
[2019-12-02] MEDS: CEPHALEXIN 250 MG CAPSULE PO SCH ×2 (16:46→22:00)
[2019-12-02] MEDS: MIRTAZAPINE 7.5 MG TABLET. PO SCH (20:38)
[2019-12-02] MEDS: hydrOXYzine HCL 25 MG TABLET PO PRN (20:38)
[2019-12-02] MEDS: PRAMIPEXOLE 0.5 MG TABLET. PO SCH (20:39)
[2019-12-02] MEDS: QUEtiapine 100 MG TABLET. PO SCH (20:39)
--- NOTE | 2019-12-02 21:14 | PDOC ---
Exam Note: En Note: Please also refer to the separate dictated note~for this date of service dictated separately.~Patient seen individually. Discussed the patient with Nursing staff reviewed the chart.~Reviewed interim history and current functioning. Reviewed vital signs,~Labs/ Radiology~and current medications noted below. Continue current treatment with the changes noted in the dictated addendum note Assessment: Vital Signs/I&O: Vital Signs Date Time Temp Pulse Resp B/P (MAP) Pulse Ox O2 Delivery O2 Flow Rate FiO2 12/02/19 20:39 93 108/64 12/02/19 15:54 98.2 18 92 12/02/19 10:19 Room Air I & O 12/01/19 12/01/19 12/02/19 15:00 23:00 07:00 Intake Total 660 ml 580 ml Balance 660 ml 580 ml Current Medications: Meds: Current Medications Medications (Trade) Dose Ordered Sig/Last Route PRN Reason Start Time Stop Time Status Last Admin Dose Admin Cephalexin HCl (Keflex) 500 mg Q8HRS PO 12/02/19 16:00 12/02/19 16:46 I have reviewed the current psychotropics carefully including drug interactions. Risk benefit ratio favors no change other than as noted in my dictated progress note. Diagnosis: Problems: (1) Major neurocognitive disorder (2) Dementia with behavioral disturbance (3) Anxiety disorder (4) Dementia, vascular, with depression (5) Dementia, vascular, with delusions (6) Dementia in Alzheimer's disease with depression (7) Dementia in Alzheimer's disease with delusions (8) Impulse control disorder ELISABETH BACA MD Dec 02, 2019 21:14
--- NOTE | 2019-12-02 21:18 | PN ---
DATE: 12/01/2019 PSYCHIATRIC PROGRESS NOTE This late entry 12/01/2019 covers elements not covered in my initial note. SUBJECTIVE: I met with the patient evening of 12/01/2019. Per JEFFERY Camarena, the patient slept 6-1/2 hours previous night. He has had a good day. He did urinate on the floor of his bedroom, less agitated, ate breakfast and slept after then until lunchtime and then was cooperative in the evening as I met with him. REVIEW OF SYSTEMS: Ambulation impaired with walker. No CV, , pulmonary, eye, ENT system symptoms on review. Reliability poor. He is pleasant, smiling as I met with him. MENTAL STATUS EXAM: Oriented to himself. Insight, judgment, recent and remote memory, attention, concentration, fund of knowledge poor, consistent with his diagnosis mentioned in my initial note. PLAN: No change from initial note. MAN Katia BACA MD DR: CAMPOS/rosenda JOB#: [id number] / [id number]
[2019-12-03] MEDS: CEPHALEXIN 250 MG CAPSULE PO SCH ×3 (06:00→21:00)
[2019-12-03] MEDS: BUDESONIDE 0.5 MG/2 ML NEBU NEB SCH ×2 (08:00→21:56)
[2019-12-03] MEDS: METOPROLOL TART IMMED RELEASE 25 MG TABLET PO SCH ×2 (09:12→20:59)
[2019-12-03] MEDS: POLYETHYLENE GLYCOL 3350 17 GM PACKET. PO SCH (09:12)
[2019-12-03] MEDS: PRAMIPEXOLE 0.25 MG TABLET. PO SCH (09:12)
[2019-12-03] MEDS: SERTRALINE 100 MG TABLET. PO SCH (09:13)
[2019-12-03] MEDS: QUEtiapine 25 MG TABLET. PO SCH ×2 (09:13→17:17)
[2019-12-03] MEDS: POLYVINYL ALCOHOL 1.4% OPHTH SOLUTION 15ML BOTTLE. OU SCH ×2 (09:13→21:00)
[2019-12-03] MEDS: DIVALPROEX 125 MG CAP.SPRINK PO SCH ×2 (09:13→17:16)
[2019-12-03] MEDS: CYANOCOBALAMIN (VITAMIN B-12) 100 MCG TABLET PO SCH (09:14)
[2019-12-03] MEDS: FUROSEMIDE 20 MG TABLET PO SCH (09:14)
[2019-12-03] MEDS: FOLIC ACID 1 MG TABLET PO SCH (09:14)
[2019-12-03] MEDS: CHOLECALCIFEROL (VITAMIN D3) 1,000 UNIT TABLET PO SCH (09:14)
[2019-12-03] MEDS: MULTIVITAMIN I-VITE TABLET. PO SCH ×2 (09:14→20:59)
[2019-12-03] MEDS: ALLOPURINOL 300 MG TABLET. PO SCH (09:15)
[2019-12-03] MEDS: ASPIRIN 81 MG TAB.CHEW PO SCH (09:15)
[2019-12-03] MEDS: PANTOPRAZOLE 40 MG TABLET. PO SCH (09:15)
[2019-12-03] MEDS: hydrOXYzine HCL 25 MG TABLET PO PRN (10:15)
[2019-12-03 16:09] VITALS: BP 137/69
[2019-12-03] MEDS: ACETAMINOPHEN 325 MG TABLET PO PRN ×2 (17:43→21:00)
[2019-12-03] MEDS: PRAMIPEXOLE 0.5 MG TABLET. PO SCH (20:59)
[2019-12-03] MEDS: QUEtiapine 100 MG TABLET. PO SCH (20:59)
[2019-12-03] MEDS: traZODone 50 MG TABLET. PO PRN (20:59)
[2019-12-03] MEDS: MIRTAZAPINE 7.5 MG TABLET. PO SCH (21:00)
--- NOTE | 2019-12-03 21:18 | PDOC ---
Exam Note: En Note: Please also refer to the separate dictated note~for this date of service dictated separately.~Patient seen individually. Discussed the patient with Nursing staff reviewed the chart.~Reviewed interim history and current functioning. Reviewed vital signs,~Labs/ Radiology~and current medications noted below. Continue current treatment with the changes noted in the dictated addendum note Assessment: Vital Signs/I&O: Vital Signs Date Time Temp Pulse Resp B/P (MAP) Pulse Ox O2 Delivery O2 Flow Rate FiO2 12/03/19 20:59 77 137/69 12/03/19 16:09 97.4 16 95 12/02/19 20:20 Room Air I & O 12/02/19 12/02/19 12/03/19 15:00 23:00 07:00 Intake Total 580 ml Balance 580 ml Current Medications: Meds: Current Medications Medications (Trade) Dose Ordered Sig/Last Route PRN Reason Start Time Stop Time Status Last Admin Dose Admin Divalproex Sodium (Depakote Sprinkles) 375 mg BID@0900,1700 PO 12/03/19 17:00 12/03/19 17:16 I have reviewed the current psychotropics carefully including drug interactions. Risk benefit ratio favors no change other than as noted in my dictated progress note. Diagnosis: Problems: (1) Major neurocognitive disorder (2) Dementia with behavioral disturbance (3) Anxiety disorder (4) Dementia, vascular, with depression (5) Dementia, vascular, with delusions (6) Dementia in Alzheimer's disease with depression (7) Dementia in Alzheimer's disease with delusions (8) Impulse control disorder ELISABETH BACA MD Dec 03, 2019 21:18
[2019-12-04] MEDS: CEPHALEXIN 250 MG CAPSULE PO SCH ×3 (06:31→20:49)
[2019-12-04 06:34] VITALS: BP 128/58
[2019-12-04] MEDS: BUDESONIDE 0.5 MG/2 ML NEBU NEB SCH ×2 (08:00→21:38)
[2019-12-04] MEDS: POLYETHYLENE GLYCOL 3350 17 GM PACKET. PO SCH (08:10)
[2019-12-04] MEDS: CHOLECALCIFEROL (VITAMIN D3) 1,000 UNIT TABLET PO SCH (08:10)
[2019-12-04] MEDS: PANTOPRAZOLE 40 MG TABLET. PO SCH (08:11)
[2019-12-04] MEDS: SERTRALINE 100 MG TABLET. PO SCH (08:11)
[2019-12-04] MEDS: DIVALPROEX 125 MG CAP.SPRINK PO SCH ×2 (08:11→17:00)
[2019-12-04] MEDS: MULTIVITAMIN I-VITE TABLET. PO SCH ×2 (08:11→20:46)
[2019-12-04] MEDS: ALLOPURINOL 300 MG TABLET. PO SCH (08:12)
[2019-12-04] MEDS: PRAMIPEXOLE 0.25 MG TABLET. PO SCH (08:12)
[2019-12-04] MEDS: METOPROLOL TART IMMED RELEASE 25 MG TABLET PO SCH ×2 (08:12→20:51)
[2019-12-04] MEDS: FUROSEMIDE 20 MG TABLET PO SCH (08:13)
[2019-12-04] MEDS: QUEtiapine 25 MG TABLET. PO SCH ×2 (08:13→17:00)
[2019-12-04] MEDS: ASPIRIN 81 MG TAB.CHEW PO SCH (08:13)
[2019-12-04] MEDS: FOLIC ACID 1 MG TABLET PO SCH (08:14)
[2019-12-04] MEDS: POLYVINYL ALCOHOL 1.4% OPHTH SOLUTION 15ML BOTTLE. OU SCH ×2 (08:14→20:46)
[2019-12-04] MEDS: CYANOCOBALAMIN (VITAMIN B-12) 100 MCG TABLET PO SCH (08:14)
--- NOTE | 2019-12-04 14:29 | TX PLAN ---
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 Additional Admission Comments: According to the intake, pt is hitting at staff, restless, agitated and confrontational. Pt is currently exhibiting manic behavior, violent, sundowning, exit seeking and sexually inappropriate, poor sleep and a safety concern. Problems Active Problems: Agitated Combative with staff Poor sleep Sexually inappropriate behavior Inactive Problems: Medication compliance Pt Strengths/Limitations Ability for [place]: Poor Cognitive Functioning/Ability: Poor Communication Skills/Ability: Fair Insight/Judgement: Poor Intellectual Ability: Poor Physical Health: Fair Social Skills: Poor Stability in Family: Good Stability in School/Work: Poor Verbal Skills: Fair Discharge Criteria Discharge Criteria: Adequate arrangements @DC, Improved behavior, Improved mood/thought Preliminary Discharge Plan Preliminary DC Plan: Current Living Arrange. Special Precautions Fall Risk: Low Initial D/C Plan Pt will plan to return to [facility] once stable. Identified Discharge Needs: Psychiatric Follow-up Currently Utilized Resources Currently Utilized Resources/P: Pt has a primary care physician Identified Problems/Hx/Goals Objectives/Short-Term Goals Short Term Goals: Dec. Outbursts, Improved Social Skills, Medication Stabilization, Promote Coping Skill Short Term Goals in Patient's: Medication and Behavioral Modification Interventions/Frequency Staff Interventions/Frequency&: Psychiatrist to assess pt at least 3x per week Internet Manager to assess pt at least 2x per week. Nursing to complete 15 minute checks daily. Encourage pt to participate in group activities. 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 Education: Pt did graduate high school and completed his degree a year early. Community Follow-up Community Provider/Family Inpu: This is a part of pt progression and just want to make sure that he can be stable before discharging back to placement. Treatment Plan Explained Patient/Special Procedures Nurse had this treatment plan explained to him/her as indicated by the signature below and has been given the opportunity to ask questions and make suggestions: Date: Patient/Special Procedures Nurse Signature: Status Update Update Pt is eating roughly 75% and sleeping on average 6.75 hours a night. Pt continues to be combative with staff during cares and during times of redirection. Pt is seeing wound care as he has bad skin tears on his arms; however, pt is consistently taking the dressing off, which is causing more irritation and tears. Pt is confused and appears to need PRN oxygen at times during the night. The treatment team has discussed the potential need for pt to be on hospice services as a means to provide extra support to pt, his family and the facility. SW will plan to contact pt dtr and the facility to discuss this and discharge planning. ELOS is the end of next week. CLAUDE SCHREIBER Dec 04, 2019 14:29
[2019-12-04 15:28] VITALS: BP 159/98
--- NOTE | 2019-12-04 19:35 | PN ---
DATE: 12/03/2019 PSYCHIATRIC PROGRESS NOTE This late entry 12/03/2019 covers elements not covered in my initial note. SUBJECTIVE: I met with the patient evening of 12/03/2019 and staffed at treatment team meeting with the entire team in the morning. Appetite 75%, slept 5-1/2 hours. He gets agitated with dressing change. Somewhat impulsive. REVIEW OF SYSTEMS: Positive for discomfort in his arms with multiple skin tears and cellulitis. Ambulation impaired with walker. No CV, , pulmonary, eye system symptoms on review. MENTAL STATUS EXAMINATION: Oriented to himself. Insight, judgment, recent and remote memory, attention, concentration, fund of knowledge poor, consistent with his diagnosis mentioned in my initial note. PLAN: No change from initial note. MAN Katia BACA MD DR: CAMPOS/rosenda JOB#: [id number] / [id number]
--- NOTE | 2019-12-04 19:36 | PN ---
DATE: 12/02/2019 PSYCHIATRIC PROGRESS NOTE This late entry December 01, covers elements not covered in my initial note. SUBJECTIVE: I met with the patient evening of December 01. Per Nicol with Rhianna GIL, the patient remains confused. Previous night, he had a change his brief as kicking, biting staff as they tried to change it and had received skin tears further. He was resistive to redressing of his wounds. Agitated again in the morning, rest of the day, better, little more cooperative in the evening. He started on Keflex t.i.d. for 10 days for his cellulitis in the arm per Dr. Roy. REVIEW OF SYSTEMS: Ambulation impaired with walker. No CV, , pulmonary, eye, ENT system symptoms on review. Reliability poor. MENTAL STATUS EXAM: Oriented to himself. Insight, judgment, recent and remote memory, attention, concentration, fund of knowledge poor, consistent with his diagnosis mentioned in my initial note. PLAN: No change from initial note. MAN Katia BACA MD DR: CAMPOS/rosenda JOB#: [id number] / [id number]
[2019-12-04] MEDS: hydrOXYzine HCL 25 MG TABLET PO PRN (20:46)
[2019-12-04] MEDS: traZODone 50 MG TABLET. PO PRN (20:48)
[2019-12-04] MEDS: MIRTAZAPINE 7.5 MG TABLET. PO SCH (20:50)
[2019-12-04] MEDS: PRAMIPEXOLE 0.5 MG TABLET. PO SCH (20:50)
[2019-12-04] MEDS: QUEtiapine 100 MG TABLET. PO SCH (20:50)
--- NOTE | 2019-12-04 21:19 | PDOC ---
Exam Note: En Note: Please also refer to the separate dictated note~for this date of service dictated separately.~Patient seen individually. Discussed the patient with Nursing staff reviewed the chart.~Reviewed interim history and current functioning. Reviewed vital signs,~Labs/ Radiology~and current medications noted below. Continue current treatment with the changes noted in the dictated addendum note Assessment: Vital Signs/I&O: Vital Signs Date Time Temp Pulse Resp B/P (MAP) Pulse Ox O2 Delivery O2 Flow Rate FiO2 12/04/19 20:51 86 159/98 12/04/19 15:28 97.9 20 98 12/03/19 20:15 Room Air I & O 12/03/19 12/03/19 12/04/19 15:00 23:00 07:00 Intake Total 0 ml 0 ml Balance 0 ml 0 ml Current Medications: I have reviewed the current psychotropics carefully including drug interactions. Risk benefit ratio favors no change other than as noted in my dictated progress note. Diagnosis: Problems: (1) Major neurocognitive disorder (2) Dementia with behavioral disturbance (3) Anxiety disorder (4) Dementia, vascular, with depression (5) Dementia, vascular, with delusions (6) Dementia in Alzheimer's disease with depression (7) Dementia in Alzheimer's disease with delusions (8) Impulse control disorder ELSIABETH BACA MD Dec 04, 2019 21:19
[2019-12-05 06:30] VITALS: BP 104/53
[2019-12-05] MEDS: BUDESONIDE 0.5 MG/2 ML NEBU NEB SCH ×2 (08:00→21:32)
[2019-12-05] MEDS: POLYETHYLENE GLYCOL 3350 17 GM PACKET. PO SCH (08:19)
[2019-12-05] MEDS: CEPHALEXIN 250 MG CAPSULE PO SCH ×3 (08:20→20:40)
[2019-12-05] MEDS: CYANOCOBALAMIN (VITAMIN B-12) 100 MCG TABLET PO SCH (08:20)
[2019-12-05] MEDS: ALLOPURINOL 300 MG TABLET. PO SCH (08:20)
[2019-12-05] MEDS: DIVALPROEX 125 MG CAP.SPRINK PO SCH ×2 (08:20→17:21)
[2019-12-05] MEDS: QUEtiapine 25 MG TABLET. PO SCH ×2 (08:21→17:21)
[2019-12-05] MEDS: ASPIRIN 81 MG TAB.CHEW PO SCH (08:21)
[2019-12-05] MEDS: METOPROLOL TART IMMED RELEASE 25 MG TABLET PO SCH ×2 (08:21→20:39)
[2019-12-05] MEDS: CHOLECALCIFEROL (VITAMIN D3) 1,000 UNIT TABLET PO SCH (08:21)
[2019-12-05] MEDS: PRAMIPEXOLE 0.25 MG TABLET. PO SCH (08:21)
[2019-12-05] MEDS: FUROSEMIDE 20 MG TABLET PO SCH (08:22)
[2019-12-05] MEDS: POLYVINYL ALCOHOL 1.4% OPHTH SOLUTION 15ML BOTTLE. OU SCH ×2 (08:22→20:40)
[2019-12-05] MEDS: FOLIC ACID 1 MG TABLET PO SCH (08:22)
[2019-12-05] MEDS: MULTIVITAMIN I-VITE TABLET. PO SCH ×2 (08:22→20:40)
[2019-12-05] MEDS: SERTRALINE 100 MG TABLET. PO SCH (08:22)
[2019-12-05] MEDS: PANTOPRAZOLE 40 MG TABLET. PO SCH (08:22)
[2019-12-05 15:51] VITALS: BP 105/58
[2019-12-05] MEDS: QUEtiapine 100 MG TABLET. PO SCH (20:40)
[2019-12-05] MEDS: PRAMIPEXOLE 0.5 MG TABLET. PO SCH (20:40)
[2019-12-05] MEDS: MIRTAZAPINE 7.5 MG TABLET. PO SCH (20:40)
[2019-12-05] MEDS: traZODone 50 MG TABLET. PO PRN (20:47)
[2019-12-05] MEDS: hydrOXYzine HCL 25 MG TABLET PO PRN (20:47)
--- NOTE | 2019-12-05 21:13 | PDOC ---
Exam Note: En Note: Please also refer to the separate dictated note~for this date of service dictated separately.~Patient seen individually. Discussed the patient with Nursing staff reviewed the chart.~Reviewed interim history and current functioning. Reviewed vital signs,~Labs/ Radiology~and current medications noted below. Continue current treatment with the changes noted in the dictated addendum note Assessment: Vital Signs/I&O: Vital Signs Date Time Temp Pulse Resp B/P (MAP) Pulse Ox O2 Delivery O2 Flow Rate FiO2 12/05/19 20:39 95 105/58 12/05/19 15:51 97.6 16 97 12/05/19 10:11 Room Air I & O 12/04/19 12/04/19 12/05/19 15:00 23:00 07:00 Intake Total 240 ml 240 ml Balance 240 ml 240 ml Current Medications: I have reviewed the current psychotropics carefully including drug interactions. Risk benefit ratio favors no change other than as noted in my dictated progress note. Diagnosis: Problems: (1) Major neurocognitive disorder (2) Dementia with behavioral disturbance (3) Anxiety disorder (4) Dementia, vascular, with depression (5) Dementia, vascular, with delusions (6) Dementia in Alzheimer's disease with depression (7) Dementia in Alzheimer's disease with delusions (8) Impulse control disorder ELISABETH BACA MD Dec 05, 2019 21:13
[2019-12-06] MEDS: CEPHALEXIN 250 MG CAPSULE PO SCH ×3 (05:46→20:23)
[2019-12-06 06:18] VITALS: BP 118/70
[2019-12-06] MEDS: BUDESONIDE 0.5 MG/2 ML NEBU NEB SCH ×2 (08:00→21:26)
[2019-12-06] MEDS: FUROSEMIDE 20 MG TABLET PO SCH (09:00)
[2019-12-06] MEDS: FOLIC ACID 1 MG TABLET PO SCH (11:27)
[2019-12-06] MEDS: PRAMIPEXOLE 0.25 MG TABLET. PO SCH (11:27)
[2019-12-06] MEDS: DIVALPROEX 125 MG CAP.SPRINK PO SCH ×2 (11:27→17:33)
[2019-12-06] MEDS: MULTIVITAMIN I-VITE TABLET. PO SCH ×2 (11:27→20:24)
[2019-12-06] MEDS: PANTOPRAZOLE 40 MG TABLET. PO SCH (11:27)
[2019-12-06] MEDS: CHOLECALCIFEROL (VITAMIN D3) 1,000 UNIT TABLET PO SCH (11:27)
[2019-12-06] MEDS: POLYETHYLENE GLYCOL 3350 17 GM PACKET. PO SCH (11:27)
[2019-12-06] MEDS: POLYVINYL ALCOHOL 1.4% OPHTH SOLUTION 15ML BOTTLE. OU SCH ×2 (11:27→20:24)
[2019-12-06] MEDS: ALLOPURINOL 300 MG TABLET. PO SCH (11:27)
[2019-12-06] MEDS: ASPIRIN 81 MG TAB.CHEW PO SCH (11:28)
[2019-12-06] MEDS: CYANOCOBALAMIN (VITAMIN B-12) 100 MCG TABLET PO SCH (11:28)
[2019-12-06] MEDS: SERTRALINE 100 MG TABLET. PO SCH (11:28)
[2019-12-06] MEDS: QUEtiapine 25 MG TABLET. PO SCH ×2 (11:28→17:00)
[2019-12-06] MEDS: METOPROLOL TART IMMED RELEASE 25 MG TABLET PO SCH ×2 (11:28→20:23)
[2019-12-06 15:27] VITALS: BP 117/68
[2019-12-06] MEDS: QUEtiapine 100 MG TABLET. PO SCH (20:23)
[2019-12-06] MEDS: MIRTAZAPINE 7.5 MG TABLET. PO SCH (20:23)
[2019-12-06] MEDS: PRAMIPEXOLE 0.5 MG TABLET. PO SCH (20:24)
[2019-12-06] MEDS: traZODone 50 MG TABLET. PO PRN (20:29)
[2019-12-06] MEDS: hydrOXYzine HCL 25 MG TABLET PO PRN (20:29)
--- NOTE | 2019-12-06 21:26 | PN ---
DATE: 12/04/2019 PSYCHIATRIC PROGRESS NOTE This late entry 12/04/2019 covers elements not covered in my initial note. SUBJECTIVE: I met with the patient evening of 12/04/2019. Per JEFFERY Aggarwal, the patient slept 6-3/4 hours previous night. He is compliant with his medications in the morning, refused them in the evening, somewhat resistive with his dressing to the arm wounds, but does better if he receives Zyprexa p.r.n. prior to this. REVIEW OF SYSTEMS: Ambulation impaired with walker. No CV, , pulmonary, eye system symptoms on review. Reliability poor. MENTAL STATUS EXAMINATION: Oriented to himself and situation. Insight, judgment, recent and remote memory, attention, concentration, fund of knowledge poor, consistent with his diagnosis mentioned in my initial note. PLAN: No change from initial note. MAN Katia BACA MD DR: CAMPOS/rosenda JOB#: [id number] / [id number]
--- NOTE | 2019-12-06 21:32 | PN ---
DATE: 12/05/2019 PSYCHIATRIC PROGRESS NOTE This late entry of December 04 covers elements not covered in my initial note. SUBJECTIVE: I met with the patient on evening of December 04. Per JEFFERY [place], the patient slept 5-1/2 hours previous night. He has been less agitated, takes his medications crushed, remains confused. REVIEW OF SYSTEMS: Ambulation impaired with walker. No CV, , pulmonary, eye, ENT system symptoms on review. Reliability poor. MENTAL STATUS EXAM: Oriented to himself. Insight, judgment, recent, remote memory, attention, concentration, fund of knowledge poor, consistent with his diagnosis mentioned in my initial note. PLAN: No change from initial note. MAN Katia BACA MD DR: CAMPOS/rosenda JOB#: [id number] / [id number]
--- NOTE | 2019-12-06 22:28 | PDOC ---
Exam Note: En Note: Please also refer to the separate dictated note~for this date of service dictated separately.~Patient seen individually. Discussed the patient with Nursing staff reviewed the chart.~Reviewed interim history and current functioning. Reviewed vital signs,~Labs/ Radiology~and current medications noted below. Continue current treatment with the changes noted in the dictated addendum note Assessment: Vital Signs/I&O: Vital Signs Date Time Temp Pulse Resp B/P (MAP) Pulse Ox O2 Delivery O2 Flow Rate FiO2 12/06/19 21:30 96 Room Air 12/06/19 20:23 64 117/68 12/06/19 15:27 97.0 20 I & O 12/05/19 12/05/19 12/06/19 15:00 23:00 07:00 Intake Total 360 ml 360 ml Balance 360 ml 360 ml Current Medications: I have reviewed the current psychotropics carefully including drug interactions. Risk benefit ratio favors no change other than as noted in my dictated progress note. Diagnosis: Problems: (1) Major neurocognitive disorder (2) Dementia with behavioral disturbance (3) Anxiety disorder (4) Dementia, vascular, with depression (5) Dementia, vascular, with delusions (6) Dementia in Alzheimer's disease with depression (7) Dementia in Alzheimer's disease with delusions (8) Impulse control disorder ELISABEHT BACA MD Dec 06, 2019 22:28
[2019-12-07] MEDS: CEPHALEXIN 250 MG CAPSULE PO SCH ×3 (05:29→20:28)
[2019-12-07 06:14] VITALS: BP 110/58
[2019-12-07] MEDS: POLYETHYLENE GLYCOL 3350 17 GM PACKET. PO SCH (08:05)
[2019-12-07] MEDS: hydrOXYzine HCL 25 MG TABLET PO PRN ×2 (08:05→20:27)
[2019-12-07] MEDS: SERTRALINE 100 MG TABLET. PO SCH (08:06)
[2019-12-07] MEDS: CYANOCOBALAMIN (VITAMIN B-12) 100 MCG TABLET PO SCH (08:06)
[2019-12-07] MEDS: DIVALPROEX 125 MG CAP.SPRINK PO SCH ×2 (08:06→17:22)
[2019-12-07] MEDS: ALLOPURINOL 300 MG TABLET. PO SCH (08:06)
[2019-12-07] MEDS: QUEtiapine 25 MG TABLET. PO SCH ×2 (08:06→17:22)
[2019-12-07] MEDS: PRAMIPEXOLE 0.25 MG TABLET. PO SCH (08:06)
[2019-12-07] MEDS: METOPROLOL TART IMMED RELEASE 25 MG TABLET PO SCH ×2 (08:06→20:28)
[2019-12-07] MEDS: CHOLECALCIFEROL (VITAMIN D3) 1,000 UNIT TABLET PO SCH (08:07)
[2019-12-07] MEDS: PANTOPRAZOLE 40 MG TABLET. PO SCH (08:07)
[2019-12-07] MEDS: ASPIRIN 81 MG TAB.CHEW PO SCH (08:07)
[2019-12-07] MEDS: MULTIVITAMIN I-VITE TABLET. PO SCH ×2 (08:07→20:27)
[2019-12-07] MEDS: FOLIC ACID 1 MG TABLET PO SCH (08:07)
[2019-12-07] MEDS: FUROSEMIDE 20 MG TABLET PO SCH (08:07)
[2019-12-07] MEDS: POLYVINYL ALCOHOL 1.4% OPHTH SOLUTION 15ML BOTTLE. OU SCH ×2 (08:08→20:27)
[2019-12-07 10:16] LABS: BASO % 0 % (0-3); EOS # 0.2 x10^3/uL (0.0-0.7); EOS % 2 % (0-3); HEMOGLOBIN 10.5 g/dL (13.0-17.5); LYMPH # 1.1 x10^3/uL (1.0-4.8); LYMPH % 14 % (24-48); MEAN CORPUSCULAR HEMOGLOBIN 34 pg (25-35); MEAN CORPUSCULAR HGB CONC 32 g/dL (31-37); MEAN CORPUSCULAR VOLUME 106 fL (79-100); MONO # 0.8 x10^3/uL (0.0-1.1); MONO % 10 % (0-9); NEUT # 5.7 x10^3uL (1.8-7.7); NEUT % 74 % (31-73); PLATELET COUNT 235 x10^3/uL (140-400); RED CELL DISTRIBUTION WIDTH 16.7 % (11.5-14.5); WHITE BLOOD COUNT 7.8 x10^3/uL (4.0-11.0)
[2019-12-07 10:28] LABS: ALBUMIN 2.9 g/dL (3.4-5.0); ALBUMIN/GLOBULIN RATIO 0.7 (1.0-1.7); ALK PHOS 134 U/L (46-116); ALT (SGPT) 23 U/L (16-63); ANION GAP 9 (6-14); AST (SGOT) 20 U/L (15-37); BLOOD UREA NITROGEN 55 mg/dL (8-26); BUN/CREATININE RATIO 26 (6-20); CALCIUM 9.6 mg/dL (8.5-10.1); CARBON DIOXIDE 31 mmol/L (21-32); CHLORIDE 110 mmol/L (98-107); CREATININE 2.1 mg/dL (0.7-1.3); GLUCOSE 142 mg/dL (70-99); POTASSIUM 4.4 mmol/L (3.5-5.1); SODIUM 150 mmol/L (136-145); TOTAL BILIRUBIN 0.5 mg/dL (0.2-1.0); TOTAL PROTEIN 7.3 g/dL (6.4-8.2)
[2019-12-07] MEDS: BUDESONIDE 0.5 MG/2 ML NEBU NEB SCH ×2 (10:30→20:00)
[2019-12-07 10:43] LABS: VAL ACID 30 mcg/mL (50-100)
[2019-12-07 16:04] VITALS: BP 103/56
--- NOTE | 2019-12-07 20:11 | PN ---
DATE: 12/06/2019 PSYCHIATRIC PROGRESS NOTE This late entry 12/06/2019 covers the elements not covered in my initial note. SUBJECTIVE: I met with the patient in the evening of 12/06/2019. Per JEFFERY [place], the patient slept 7-1/2 hours previous night. He has been confused, but compliant with wound dressing quite a bit better, compliant with medications. Oral intake is poor. REVIEW OF SYSTEMS: Ambulation impaired with walker. No CV, , pulmonary, eye system symptoms on review. MENTAL STATUS EXAM: Oriented to himself. Insight, judgment, recent and remote memory, attention, concentration, fund of knowledge poor, consistent with his diagnosis mentioned in my initial note. PLAN: No change from initial note. MAN Katia BACA MD DR: CAMPOS/rosenda JOB#: [id number] / [id number]
[2019-12-07] MEDS: QUEtiapine 100 MG TABLET. PO SCH (20:27)
[2019-12-07] MEDS: LACTOBACILLUS RHAMNOSUS GG 1 CAPSULE. PO SCH (20:27)
[2019-12-07] MEDS: traZODone 50 MG TABLET. PO PRN (20:27)
[2019-12-07] MEDS: MIRTAZAPINE 7.5 MG TABLET. PO SCH (20:27)
[2019-12-07] MEDS: PRAMIPEXOLE 0.5 MG TABLET. PO SCH (20:27)
--- NOTE | 2019-12-07 21:38 | PDOC ---
Exam Note: En Note: Please also refer to the separate dictated note~for this date of service dictated separately.~Patient seen individually. Discussed the patient with Nursing staff reviewed the chart.~Reviewed interim history and current functioning. Reviewed vital signs,~Labs/ Radiology~and current medications noted below. Continue current treatment with the changes noted in the dictated addendum note Assessment: Vital Signs/I&O: Vital Signs Date Time Temp Pulse Resp B/P (MAP) Pulse Ox O2 Delivery O2 Flow Rate FiO2 12/07/19 20:28 65 101/59 12/07/19 16:04 98.6 18 95 12/07/19 10:30 Room Air I & O 12/06/19 12/06/19 12/07/19 15:00 23:00 07:00 Intake Total 600 ml 120 ml Balance 600 ml 120 ml Labs: Laboratory Tests Test 12/07/19 09:22 White Blood Count 7.8 x10^3/uL (4.0-11.0) Red Blood Count 3.10 x10^6/uL (4.30-5.70) L Hemoglobin 10.5 g/dL (13.0-17.5) L Hematocrit 33.0 % (39.0-53.0) L Mean Corpuscular Volume 106 fL (79-100) H Mean Corpuscular Hemoglobin 34 pg (25-35) Mean Corpuscular Hemoglobin Concent 32 g/dL (31-37) Red Cell Distribution Width 16.7 % (11.5-14.5) H Platelet Count 235 x10^3/uL (140-400) Neutrophils (%) (Auto) 74 % (31-73) H Lymphocytes (%) (Auto) 14 % (24-48) L Monocytes (%) (Auto) 10 % (0-9) H Eosinophils (%) (Auto) 2 % (0-3) Basophils (%) (Auto) 0 % (0-3) Neutrophils # (Auto) 5.7 x10^3uL (1.8-7.7) Lymphocytes # (Auto) 1.1 x10^3/uL (1.0-4.8) Monocytes # (Auto) 0.8 x10^3/uL (0.0-1.1) Eosinophils # (Auto) 0.2 x10^3/uL (0.0-0.7) Basophils # (Auto) 0.0 x10^3/uL (0.0-0.2) Sodium Level 150 mmol/L (136-145) H Potassium Level 4.4 mmol/L (3.5-5.1) Chloride Level 110 mmol/L (98-107) H Carbon Dioxide Level 31 mmol/L (21-32) Anion Gap 9 (6-14) Blood Urea Nitrogen 55 mg/dL (8-26) H Creatinine 2.1 mg/dL (0.7-1.3) H Estimated GFR (Cockcroft-Gault) 30.0 BUN/Creatinine Ratio 26 (6-20) H Glucose Level 142 mg/dL (70-99) H Calcium Level 9.6 mg/dL (8.5-10.1) Total Bilirubin 0.5 mg/dL (0.2-1.0) Aspartate Amino Transferase (AST) 20 U/L (15-37) Alanine Aminotransferase (ALT) 23 U/L (16-63) Alkaline Phosphatase 134 U/L (46-116) H Ammonia < 10 mcmol/L (11-34) L Total Protein 7.3 g/dL (6.4-8.2) Albumin 2.9 g/dL (3.4-5.0) L Albumin/Globulin Ratio 0.7 (1.0-1.7) L Valproic Acid Level 30 mcg/mL (50-100) L Valproic Acid Last Dose Date 12-06-19 Valproic Acid Last Dose Time 1700 Current Medications: Meds: Current Medications Medications (Trade) Dose Ordered Sig/Last Route PRN Reason Start Time Stop Time Status Last Admin Dose Admin Lactobacillus Rhamnosus (Culturelle) 1 cap BID PO 12/07/19 21:00 12/07/19 20:27 I have reviewed the current psychotropics carefully including drug interactions. Risk benefit ratio favors no change other than as noted in my dictated progress note. Diagnosis: Problems: (1) Major neurocognitive disorder (2) Dementia with behavioral disturbance (3) Anxiety disorder (4) Dementia, vascular, with depression (5) Dementia, vascular, with delusions (6) Dementia in Alzheimer's disease with depression (7) Dementia in Alzheimer's disease with delusions (8) Impulse control disorder ELISABETH BACA MD Dec 07, 2019 21:38
[2019-12-08] MEDS: CEPHALEXIN 250 MG CAPSULE PO SCH ×3 (05:57→20:13)
[2019-12-08 06:20] VITALS: BP 94/56
[2019-12-08] MEDS: BUDESONIDE 0.5 MG/2 ML NEBU NEB SCH ×2 (08:00→22:51)
[2019-12-08] MEDS: QUEtiapine 25 MG TABLET. PO SCH ×2 (09:22→17:38)
[2019-12-08] MEDS: CHOLECALCIFEROL (VITAMIN D3) 1,000 UNIT TABLET PO SCH (09:22)
[2019-12-08] MEDS: SERTRALINE 100 MG TABLET. PO SCH (09:24)
[2019-12-08] MEDS: MULTIVITAMIN I-VITE TABLET. PO SCH ×2 (09:24→20:12)
[2019-12-08] MEDS: ALLOPURINOL 300 MG TABLET. PO SCH (09:24)
[2019-12-08] MEDS: CYANOCOBALAMIN (VITAMIN B-12) 100 MCG TABLET PO SCH (09:24)
[2019-12-08] MEDS: PANTOPRAZOLE 40 MG TABLET. PO SCH (09:24)
[2019-12-08] MEDS: METOPROLOL TART IMMED RELEASE 25 MG TABLET PO SCH ×2 (09:24→20:13)
[2019-12-08] MEDS: PRAMIPEXOLE 0.25 MG TABLET. PO SCH (09:24)
[2019-12-08] MEDS: POLYETHYLENE GLYCOL 3350 17 GM PACKET. PO SCH (09:25)
[2019-12-08] MEDS: FUROSEMIDE 20 MG TABLET PO SCH (09:25)
[2019-12-08] MEDS: LACTOBACILLUS RHAMNOSUS GG 1 CAPSULE. PO SCH ×2 (09:25→20:12)
[2019-12-08] MEDS: DIVALPROEX 125 MG CAP.SPRINK PO SCH ×2 (09:25→17:38)
[2019-12-08] MEDS: FOLIC ACID 1 MG TABLET PO SCH (09:25)
[2019-12-08] MEDS: POLYVINYL ALCOHOL 1.4% OPHTH SOLUTION 15ML BOTTLE. OU SCH ×2 (09:25→20:13)
[2019-12-08] MEDS: ASPIRIN 81 MG TAB.CHEW PO SCH (09:25)
[2019-12-08 16:02] VITALS: BP 121/56
--- NOTE | 2019-12-08 19:20 | PN ---
DATE: 12/07/2019 PSYCHIATRIC PROGRESS NOTE This late entry 12/07/2019 covers elements not covered in my initial note. SUBJECTIVE: I met with the patient evening of 12/07/2019. Per JEFFERY Camarena, the patient slept 4-1/2 hours previous night. He was up at 3:00 a.m., somewhat restless. Received p.r.n. before labs in the morning, then did okay with dressing changes. He had some nap in the afternoon. Valproic acid level is 30, subtherapeutic, but clinically adequate as he is much less impulsive and less labile. REVIEW OF SYSTEMS: Ambulation impaired with walker. No CV, , pulmonary, eye system symptoms on review. Reliability poor. MENTAL STATUS EXAM: Oriented to himself. Insight, judgment, recent and remote memory, attention, concentration, fund of knowledge poor, consistent with his diagnosis mentioned in my initial note. PLAN: No change from initial note despite subtherapeutic valproic acid level, clinically it is adequate for now. MAN Katia BACA MD DR: CAMPOS/rosenda JOB#: [id number] / [id number]
[2019-12-08] MEDS: PRAMIPEXOLE 0.5 MG TABLET. PO SCH (20:12)
[2019-12-08] MEDS: QUEtiapine 100 MG TABLET. PO SCH (20:12)
[2019-12-08] MEDS: MIRTAZAPINE 7.5 MG TABLET. PO SCH (20:13)
--- NOTE | 2019-12-08 21:36 | PDOC ---
Exam Note: En Note: Please also refer to the separate dictated note~for this date of service dictated separately.~Patient seen individually. Discussed the patient with Nursing staff reviewed the chart.~Reviewed interim history and current functioning. Reviewed vital signs,~Labs/ Radiology~and current medications noted below. Continue current treatment with the changes noted in the dictated addendum note Assessment: Vital Signs/I&O: Vital Signs Date Time Temp Pulse Resp B/P (MAP) Pulse Ox O2 Delivery O2 Flow Rate FiO2 12/08/19 20:13 68 121/56 12/08/19 16:02 97.3 16 97 12/08/19 10:28 Room Air I & O 12/07/19 12/07/19 12/08/19 15:00 23:00 07:00 Intake Total 480 ml 0 ml Balance 480 ml 0 ml Current Medications: I have reviewed the current psychotropics carefully including drug interactions. Risk benefit ratio favors no change other than as noted in my dictated progress note. Diagnosis: Problems: (1) Major neurocognitive disorder (2) Dementia with behavioral disturbance (3) Anxiety disorder (4) Dementia, vascular, with depression (5) Dementia, vascular, with delusions (6) Dementia in Alzheimer's disease with depression (7) Dementia in Alzheimer's disease with delusions (8) Impulse control disorder ELISABETH BACA MD Dec 08, 2019 21:36
[2019-12-09] MEDS: CEPHALEXIN 250 MG CAPSULE PO SCH ×4 (06:03→20:15)
[2019-12-09 06:20] VITALS: BP 101/59
[2019-12-09] MEDS: BUDESONIDE 0.5 MG/2 ML NEBU NEB SCH ×2 (08:00→20:00)
[2019-12-09] MEDS: LACTOBACILLUS RHAMNOSUS GG 1 CAPSULE. PO SCH ×2 (08:08→20:15)
[2019-12-09] MEDS: PRAMIPEXOLE 0.25 MG TABLET. PO SCH (08:08)
[2019-12-09] MEDS: ALLOPURINOL 300 MG TABLET. PO SCH (08:09)
[2019-12-09] MEDS: FOLIC ACID 1 MG TABLET PO SCH (08:09)
[2019-12-09] MEDS: CHOLECALCIFEROL (VITAMIN D3) 1,000 UNIT TABLET PO SCH (08:09)
[2019-12-09] MEDS: DIVALPROEX 125 MG CAP.SPRINK PO SCH ×2 (08:09→17:39)
[2019-12-09] MEDS: PANTOPRAZOLE 40 MG TABLET. PO SCH (08:09)
[2019-12-09] MEDS: ASPIRIN 81 MG TAB.CHEW PO SCH (08:09)
[2019-12-09] MEDS: SERTRALINE 100 MG TABLET. PO SCH (08:09)
[2019-12-09] MEDS: MULTIVITAMIN I-VITE TABLET. PO SCH ×2 (08:09→20:15)
[2019-12-09] MEDS: QUEtiapine 25 MG TABLET. PO SCH ×2 (08:09→17:40)
[2019-12-09] MEDS: FUROSEMIDE 20 MG TABLET PO SCH (08:10)
[2019-12-09] MEDS: METOPROLOL TART IMMED RELEASE 25 MG TABLET PO SCH ×2 (08:10→20:15)
[2019-12-09] MEDS: POLYETHYLENE GLYCOL 3350 17 GM PACKET. PO SCH (08:10)
[2019-12-09] MEDS: POLYVINYL ALCOHOL 1.4% OPHTH SOLUTION 15ML BOTTLE. OU SCH ×2 (08:19→21:00)
[2019-12-09] MEDS: CYANOCOBALAMIN (VITAMIN B-12) 100 MCG TABLET PO SCH (09:00)
--- NOTE | 2019-12-09 09:30 | PN ---
DATE: 12/08/2019 PSYCHIATRIC PROGRESS NOTE This late entry 12/08/2019 covers elements not covered in my initial note. SUBJECTIVE: I met with the patient evening of 12/08/2019. Per JEFFERY Gotti, the patient slept 8-3/4 hours previous night. He has been compliant with his medications. He was seen by Wound Care, their recommendations are being followed. No PRNs have been given and he was cooperative with the dressing change without PRNs. He slept 3 hours in the afternoon additionally. REVIEW OF SYSTEMS: Ambulation impaired, with walker. No CV, , pulmonary, eye, ENT system symptoms on review. MENTAL STATUS EXAM: Oriented to himself. Insight, judgment, recent and remote memory, attention, concentration, fund of knowledge poor, consistent with his diagnosis mentioned in my initial note. PLAN: No change from initial note. MAN Katia BACA MD DR: CAMPOS/rosenda JOB#: [id number] / [id number]
[2019-12-09 15:37] VITALS: BP 123/62
[2019-12-09] MEDS: QUEtiapine 100 MG TABLET. PO SCH (20:14)
[2019-12-09] MEDS: MIRTAZAPINE 7.5 MG TABLET. PO SCH (20:14)
[2019-12-09] MEDS: traZODone 50 MG TABLET. PO PRN (20:15)
[2019-12-09] MEDS: PRAMIPEXOLE 0.5 MG TABLET. PO SCH (20:15)
[2019-12-09] MEDS: hydrOXYzine HCL 25 MG TABLET PO PRN (20:15)
--- NOTE | 2019-12-09 21:47 | PDOC ---
Exam Note: En Note: Please also refer to the separate dictated note~for this date of service dictated separately.~Patient seen individually. Discussed the patient with Nursing staff reviewed the chart.~Reviewed interim history and current functioning. Reviewed vital signs,~Labs/ Radiology~and current medications noted below. Continue current treatment with the changes noted in the dictated addendum note Assessment: Vital Signs/I&O: Vital Signs Date Time Temp Pulse Resp B/P (MAP) Pulse Ox O2 Delivery O2 Flow Rate FiO2 12/09/19 20:15 85 123/62 12/09/19 15:37 97.2 18 96 12/08/19 20:00 Room Air I & O 12/08/19 12/08/19 12/09/19 15:00 23:00 07:00 Intake Total 360 ml 240 ml Balance 360 ml 240 ml Current Medications: I have reviewed the current psychotropics carefully including drug interactions. Risk benefit ratio favors no change other than as noted in my dictated progress note. Diagnosis: Problems: (1) Major neurocognitive disorder (2) Dementia with behavioral disturbance (3) Anxiety disorder (4) Dementia, vascular, with depression (5) Dementia, vascular, with delusions (6) Dementia in Alzheimer's disease with depression (7) Dementia in Alzheimer's disease with delusions (8) Impulse control disorder ELISABETH BACA MD Dec 09, 2019 21:47
[2019-12-10] MEDS: CEPHALEXIN 250 MG CAPSULE PO SCH ×4 (05:41→21:53)
[2019-12-10 07:07] VITALS: BP 121/50
[2019-12-10] MEDS: BUDESONIDE 0.5 MG/2 ML NEBU NEB SCH ×2 (08:00→20:00)
[2019-12-10] MEDS: PRAMIPEXOLE 0.25 MG TABLET. PO SCH (08:32)
[2019-12-10] MEDS: MULTIVITAMIN I-VITE TABLET. PO SCH ×2 (08:32→21:39)
[2019-12-10] MEDS: FOLIC ACID 1 MG TABLET PO SCH (08:32)
[2019-12-10] MEDS: POLYETHYLENE GLYCOL 3350 17 GM PACKET. PO SCH (08:32)
[2019-12-10] MEDS: DIVALPROEX 125 MG CAP.SPRINK PO SCH ×2 (08:33→17:33)
[2019-12-10] MEDS: QUEtiapine 25 MG TABLET. PO SCH ×2 (08:33→17:33)
[2019-12-10] MEDS: ASPIRIN 81 MG TAB.CHEW PO SCH (08:33)
[2019-12-10] MEDS: CHOLECALCIFEROL (VITAMIN D3) 1,000 UNIT TABLET PO SCH (08:33)
[2019-12-10] MEDS: METOPROLOL TART IMMED RELEASE 25 MG TABLET PO SCH ×2 (08:33→21:39)
[2019-12-10] MEDS: PANTOPRAZOLE 40 MG TABLET. PO SCH (08:34)
[2019-12-10] MEDS: FUROSEMIDE 20 MG TABLET PO SCH (08:34)
[2019-12-10] MEDS: POLYVINYL ALCOHOL 1.4% OPHTH SOLUTION 15ML BOTTLE. OU SCH ×2 (08:34→21:00)
[2019-12-10] MEDS: CYANOCOBALAMIN (VITAMIN B-12) 100 MCG TABLET PO SCH (08:34)
[2019-12-10] MEDS: SERTRALINE 100 MG TABLET. PO SCH (08:34)
[2019-12-10] MEDS: LACTOBACILLUS RHAMNOSUS GG 1 CAPSULE. PO SCH ×2 (08:34→21:38)
[2019-12-10] MEDS: ALLOPURINOL 300 MG TABLET. PO SCH (08:34)
--- NOTE | 2019-12-10 14:22 | TX PLAN ---
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 Additional Admission Comments: According to the intake, pt is hitting at staff, restless, agitated and confrontational. Pt is currently exhibiting manic behavior, violent, sundowning, exit seeking and sexually inappropriate, poor sleep and a safety concern. Problems Active Problems: Agitated Combative with staff Poor sleep Sexually inappropriate behavior Inactive Problems: Medication compliance Pt Strengths/Limitations Ability for [place]: Poor Cognitive Functioning/Ability: Poor Communication Skills/Ability: Fair Insight/Judgement: Poor Intellectual Ability: Poor Physical Health: Fair Social Skills: Poor Stability in Family: Good Stability in School/Work: Poor Verbal Skills: Fair Discharge Criteria Discharge Criteria: Adequate arrangements @DC, Improved behavior, Improved mood/thought Preliminary Discharge Plan Preliminary DC Plan: Current Living Arrange. Special Precautions Fall Risk: Low Initial D/C Plan Pt will plan to return to [facility] once stable. Identified Discharge Needs: Psychiatric Follow-up Currently Utilized Resources Currently Utilized Resources/P: Pt has a primary care physician Identified Problems/Hx/Goals Objectives/Short-Term Goals Short Term Goals: Dec. Outbursts, Improved Social Skills, Medication Stabilization, Promote Coping Skill Short Term Goals in Patient's: Medication and Behavioral Modification Interventions/Frequency Staff Interventions/Frequency&: Psychiatrist to assess pt at least 3x per week Do All Operator to assess pt at least 2x per week. Nursing to complete 15 minute checks daily. Encourage pt to participate in group activities. 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 Education: Pt did graduate high school and completed his degree a year early. Community Follow-up Community Provider/Family Inpu: This is a part of pt progression and just want to make sure that he can be stable before discharging back to placement. 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 Pt is sleeping on average 6.5 hours a night. Pt does continue to have combative bx during cares and random episodes of taking off his bandage for his arm. Pt for the last few days has been laying in bed with little to no interaction with peers. Pt VPA was drawn on 12/06 and resulted at 30. Pt may need his Depakote adjusted; furthermore, the team is recommending that pt be evaluated for potential hospice services. SW will continue to work with Luna Lynchn and pt dtr in making discharge plans for next week. CLAUDE SCHREIBER Dec 10, 2019 14:22
[2019-12-10 16:19] VITALS: BP 125/73
[2019-12-10] MEDS: traZODone 50 MG TABLET. PO PRN (21:38)
[2019-12-10] MEDS: hydrOXYzine HCL 25 MG TABLET PO PRN (21:38)
[2019-12-10] MEDS: MIRTAZAPINE 7.5 MG TABLET. PO SCH (21:39)
[2019-12-10] MEDS: PRAMIPEXOLE 0.5 MG TABLET. PO SCH (21:39)
[2019-12-10] MEDS: QUEtiapine 100 MG TABLET. PO SCH (21:39)
--- NOTE | 2019-12-10 21:39 | PDOC ---
Exam Note: En Note: Please also refer to the separate dictated note~for this date of service dictated separately.~Patient seen individually. Discussed the patient with Nursing staff reviewed the chart.~Reviewed interim history and current functioning. Reviewed vital signs,~Labs/ Radiology~and current medications noted below. Continue current treatment with the changes noted in the dictated addendum note Assessment: Vital Signs/I&O: Vital Signs Date Time Temp Pulse Resp B/P (MAP) Pulse Ox O2 Delivery O2 Flow Rate FiO2 12/10/19 16:19 97.2 79 20 125/73 (90) 94 12/08/19 20:00 Room Air I & O 12/09/19 12/09/19 12/10/19 15:00 23:00 07:00 Intake Total 840 ml 580 ml Balance 840 ml 580 ml Current Medications: I have reviewed the current psychotropics carefully including drug interactions. Risk benefit ratio favors no change other than as noted in my dictated progress note. Diagnosis: Problems: (1) Major neurocognitive disorder (2) Dementia with behavioral disturbance (3) Anxiety disorder (4) Dementia, vascular, with depression (5) Dementia, vascular, with delusions (6) Dementia in Alzheimer's disease with depression (7) Dementia in Alzheimer's disease with delusions (8) Impulse control disorder ELISABETH BACA MD Dec 10, 2019 21:39
[2019-12-11 05:57] VITALS: BP 130/65
[2019-12-11] MEDS: CEPHALEXIN 250 MG CAPSULE PO SCH ×3 (06:26→21:39)
[2019-12-11] MEDS: PANTOPRAZOLE 40 MG TABLET. PO SCH (07:30)
[2019-12-11] MEDS: BUDESONIDE 0.5 MG/2 ML NEBU NEB SCH ×2 (08:00→21:21)
[2019-12-11] MEDS: POLYVINYL ALCOHOL 1.4% OPHTH SOLUTION 15ML BOTTLE. OU SCH ×2 (08:42→21:00)
[2019-12-11] MEDS: ASPIRIN 81 MG TAB.CHEW PO SCH (08:43)
[2019-12-11] MEDS: DIVALPROEX 125 MG CAP.SPRINK PO SCH ×2 (08:44→17:00)
[2019-12-11] MEDS: MULTIVITAMIN I-VITE TABLET. PO SCH ×2 (08:44→21:39)
[2019-12-11] MEDS: LACTOBACILLUS RHAMNOSUS GG 1 CAPSULE. PO SCH ×2 (08:44→21:40)
[2019-12-11] MEDS: FOLIC ACID 1 MG TABLET PO SCH (08:44)
[2019-12-11] MEDS: FUROSEMIDE 20 MG TABLET PO SCH (08:45)
[2019-12-11] MEDS: METOPROLOL TART IMMED RELEASE 25 MG TABLET PO SCH ×2 (08:45→21:40)
[2019-12-11] MEDS: POLYETHYLENE GLYCOL 3350 17 GM PACKET. PO SCH (08:45)
[2019-12-11] MEDS: PRAMIPEXOLE 0.25 MG TABLET. PO SCH (08:45)
[2019-12-11] MEDS: ALLOPURINOL 300 MG TABLET. PO SCH (08:46)
[2019-12-11] MEDS: SERTRALINE 100 MG TABLET. PO SCH (08:46)
[2019-12-11] MEDS: CYANOCOBALAMIN (VITAMIN B-12) 100 MCG TABLET PO SCH (08:46)
[2019-12-11] MEDS: CHOLECALCIFEROL (VITAMIN D3) 1,000 UNIT TABLET PO SCH (08:46)
[2019-12-11] MEDS: QUEtiapine 25 MG TABLET. PO SCH ×2 (08:46→17:00)
[2019-12-11 15:41] VITALS: BP 101/53
--- NOTE | 2019-12-11 20:21 | PN ---
DATE: 12/09/2019 PSYCHIATRIC PROGRESS NOTE. This late entry of 12/09/2019 covers the elements not covered in my initial note. SUBJECTIVE: I met with the patient in the evening of 12/09/2019. Per JEFFERY Flores, the patient slept 7 hours previous night. He has been fairly appropriate, remains confused, does pull on his dressings, but redirects. REVIEW OF SYSTEMS: Ambulation impaired with walker. No CV, , pulmonary, eye system symptoms on review. MENTAL STATUS EXAM: Oriented to himself. Insight, judgment, recent and remote memory, attention, concentration, fund of knowledge poor, consistent with his diagnosis mentioned in my initial note. PLAN: No change from initial note. MAN Katia BACA MD DR: CAMPOS/rosenda JOB#: [id number] / [id number]
--- NOTE | 2019-12-11 21:22 | PDOC ---
Exam Note: En Note: Please also refer to the separate dictated note~for this date of service dictated separately.~Patient seen individually. Discussed the patient with Nursing staff reviewed the chart.~Reviewed interim history and current functioning. Reviewed vital signs,~Labs/ Radiology~and current medications noted below. Continue current treatment with the changes noted in the dictated addendum note Assessment: Vital Signs/I&O: Vital Signs Date Time Temp Pulse Resp B/P (MAP) Pulse Ox O2 Delivery O2 Flow Rate FiO2 12/11/19 15:41 97.6 70 18 101/53 (69) 97 12/11/19 10:54 Room Air I & O 12/10/19 12/10/19 12/11/19 14:59 22:59 06:59 Intake Total 720 ml 120 ml Balance 720 ml 120 ml Current Medications: I have reviewed the current psychotropics carefully including drug interactions. Risk benefit ratio favors no change other than as noted in my dictated progress note. Diagnosis: Problems: (1) Major neurocognitive disorder (2) Dementia with behavioral disturbance (3) Anxiety disorder (4) Dementia, vascular, with depression (5) Dementia, vascular, with delusions (6) Dementia in Alzheimer's disease with depression (7) Dementia in Alzheimer's disease with delusions (8) Impulse control disorder ELISABETH BACA MD Dec 11, 2019 21:22
[2019-12-11] MEDS: QUEtiapine 100 MG TABLET. PO SCH (21:40)
[2019-12-11] MEDS: MIRTAZAPINE 7.5 MG TABLET. PO SCH (21:40)
[2019-12-11] MEDS: hydrOXYzine HCL 25 MG TABLET PO PRN (21:40)
[2019-12-11] MEDS: traZODone 50 MG TABLET. PO PRN (21:40)
[2019-12-11] MEDS: PRAMIPEXOLE 0.5 MG TABLET. PO SCH (21:40)
[2019-12-12] MEDS: CEPHALEXIN 250 MG CAPSULE PO SCH ×3 (06:00→19:45)
[2019-12-12] MEDS: PANTOPRAZOLE 40 MG TABLET. PO SCH (07:30)
[2019-12-12] MEDS: BUDESONIDE 0.5 MG/2 ML NEBU NEB SCH ×2 (08:00→23:28)
--- NOTE | 2019-12-12 08:31 | PN ---
DATE: 12/10/2019 PSYCHIATRIC PROGRESS NOTE This late entry of 12/10/2019 covers elements not covered in my initial note. SUBJECTIVE: I met with the patient in the evening. The patient slept 5-3/4 hours previous night. Oral intake is poor, about 25%. He was staffed at a treatment team meeting in the morning, seen individually in the evening. REVIEW OF SYSTEMS: Ambulation impaired with walker. No CV, , pulmonary, eye, ENT system symptoms on review. MENTAL STATUS EXAM: Oriented to himself. Insight, judgment, recent and remote memory, attention, concentration, fund of knowledge poor, consistent with his diagnosis. He is quite pleasant but picking on his dressing trying to remove it, does redirect. LABORATORY DATA: Reviewed. IMPRESSION: Unchanged from initial note. PLAN: No change from initial note. MAN Katia BACA MD DR: CAMPOS/rosenda JOB#: [id number] / [id number]
[2019-12-12] MEDS: FUROSEMIDE 20 MG TABLET PO SCH (09:00)
[2019-12-12] MEDS: QUEtiapine 25 MG TABLET. PO SCH ×2 (09:00→16:59)
[2019-12-12] MEDS: METOPROLOL TART IMMED RELEASE 25 MG TABLET PO SCH ×2 (09:00→19:42)
[2019-12-12] MEDS: CHOLECALCIFEROL (VITAMIN D3) 1,000 UNIT TABLET PO SCH (09:00)
[2019-12-12] MEDS: ALLOPURINOL 300 MG TABLET. PO SCH (09:00)
[2019-12-12] MEDS: POLYETHYLENE GLYCOL 3350 17 GM PACKET. PO SCH (09:00)
[2019-12-12] MEDS: FOLIC ACID 1 MG TABLET PO SCH (09:00)
[2019-12-12] MEDS: SERTRALINE 100 MG TABLET. PO SCH (09:00)
[2019-12-12] MEDS: LACTOBACILLUS RHAMNOSUS GG 1 CAPSULE. PO SCH ×2 (09:00→19:43)
[2019-12-12] MEDS: MULTIVITAMIN I-VITE TABLET. PO SCH ×2 (09:00→19:42)
[2019-12-12] MEDS: CYANOCOBALAMIN (VITAMIN B-12) 100 MCG TABLET PO SCH (09:00)
[2019-12-12] MEDS: POLYVINYL ALCOHOL 1.4% OPHTH SOLUTION 15ML BOTTLE. OU SCH ×2 (09:00→19:43)
[2019-12-12] MEDS: ASPIRIN 81 MG TAB.CHEW PO SCH (09:00)
[2019-12-12] MEDS: PRAMIPEXOLE 0.25 MG TABLET. PO SCH (09:00)
[2019-12-12] MEDS: DIVALPROEX 125 MG CAP.SPRINK PO SCH ×2 (09:00→16:58)
[2019-12-12 13:50] VITALS: BP 133/62
[2019-12-12 16:22] VITALS: BP 133/78
[2019-12-12] MEDS: traZODone 50 MG TABLET. PO PRN (19:42)
[2019-12-12] MEDS: MIRTAZAPINE 7.5 MG TABLET. PO SCH (19:42)
[2019-12-12] MEDS: QUEtiapine 100 MG TABLET. PO SCH (19:42)
[2019-12-12] MEDS: PRAMIPEXOLE 0.5 MG TABLET. PO SCH (19:45)
--- NOTE | 2019-12-12 21:24 | PN ---
DATE: 12/12/2019 SUBJECTIVE: The patient was seen today, met with the staff, chart reviewed and also covering for Dr. Rebolledo. The patient's behavior remains the same, increased restlessness, agitation, combative, significant mood swings. The patient apparently has shown slight improvement. OBSERVATION: VITAL SIGNS: Temperature 97.1, blood pressure 133/62, pulse 103, respirations 20, and O2 sat 97%. GENERAL: Slept about 6 hours last night. The patient's appetite is fair. CURRENT MEDICATIONS: Include Depakote 375 mg b.i.d., Seroquel daily, mirtazapine 7.5 mg at night, trazodone 50 mg at night p.r.n., Zoloft 100 mg daily and also olanzapine 2.5 mg q.2 hours p.r.n. The patient is not exhibiting any side effects. The patient's lab reviewed. The patient was given trazodone p.r.n. last night. Apparently, he has been sleeping most of the day. The patient mainly having problems with ADLs, become combative while showering, increased confusion, also he is not eating well. The patient is also sensitive to surroundings including noise, light. ASSESSMENT: Major neurocognitive disorder, Alzheimer's versus vascular with delusions, depression, behavioral disturbances, generalized anxiety disorder and impulse control disorder, unspecified. PLAN: To continue with the treatment. LENGTH OF STAY: 3-5 days. JOHN COLORADO MD DR: KRISTY/rosenad JOB#: [id number] / [id number] NANETTE
--- NOTE | 2019-12-13 01:33 | PN ---
DATE: 12/11/2019 PSYCHIATRIC PROGRESS NOTE This late entry of 12/11/2019 covers elements not covered in my initial note. SUBJECTIVE: I met with the patient in the evening of 12/11/2019. Per nursing report, the patient slept 5-1/2 hours previous night. He has been constantly pulling on his dressings, confused, but redirects. Anxious, restless, wandering into the room of other patients. REVIEW OF SYSTEMS: Ambulation impaired with walker. Vague somatic symptoms as noted. No specific CV, , eye, ENT system symptoms on review. MENTAL STATUS EXAM: Oriented to himself. Insight, judgment, recent and remote memory, attention, concentration, fund of knowledge poor, consistent with his diagnosis. BUN 55, creatinine 2.1. We will defer to Dr. Roy. Often spitting out food. LABORATORY DATA: Reviewed. IMPRESSION: Unchanged from initial note. PLAN: No change from initial note. He has made vague statements of wanting to . No active suicidal ideation. He talks about a power cell in his body. Anxious, restless. He sat up straight in his bed out and then on to the floor as he stood up, he was consumed by the power cell, the battery; repeatedly stating, "there is something wrong in my mind." "Give me medications to correct it." Dictation Ends Here. MAN Katia BACA MD DR: CAMPOS/rosenda JOB#: [id number] / [id number]
[2019-12-13] MEDS: CEPHALEXIN 250 MG CAPSULE PO SCH ×3 (05:11→20:08)
[2019-12-13 05:19] VITALS: BP 109/52
[2019-12-13] MEDS: BUDESONIDE 0.5 MG/2 ML NEBU NEB SCH ×2 (08:00→22:59)
[2019-12-13] MEDS: DIVALPROEX 125 MG CAP.SPRINK PO SCH ×2 (08:22→16:53)
[2019-12-13] MEDS: MULTIVITAMIN I-VITE TABLET. PO SCH ×2 (08:22→20:10)
[2019-12-13] MEDS: QUEtiapine 25 MG TABLET. PO SCH ×2 (08:23→16:53)
[2019-12-13] MEDS: METOPROLOL TART IMMED RELEASE 25 MG TABLET PO SCH ×2 (08:23→20:10)
[2019-12-13] MEDS: POLYETHYLENE GLYCOL 3350 17 GM PACKET. PO SCH (08:24)
[2019-12-13] MEDS: CYANOCOBALAMIN (VITAMIN B-12) 100 MCG TABLET PO SCH (08:24)
[2019-12-13] MEDS: ASPIRIN 81 MG TAB.CHEW PO SCH (08:24)
[2019-12-13] MEDS: FOLIC ACID 1 MG TABLET PO SCH (08:24)
[2019-12-13] MEDS: CHOLECALCIFEROL (VITAMIN D3) 1,000 UNIT TABLET PO SCH (08:24)
[2019-12-13] MEDS: SERTRALINE 100 MG TABLET. PO SCH (08:24)
[2019-12-13] MEDS: PRAMIPEXOLE 0.25 MG TABLET. PO SCH (08:24)
[2019-12-13] MEDS: PANTOPRAZOLE 40 MG TABLET. PO SCH (08:24)
[2019-12-13] MEDS: LACTOBACILLUS RHAMNOSUS GG 1 CAPSULE. PO SCH ×2 (08:25→20:09)
[2019-12-13] MEDS: ALLOPURINOL 300 MG TABLET. PO SCH (08:25)
[2019-12-13] MEDS: POLYVINYL ALCOHOL 1.4% OPHTH SOLUTION 15ML BOTTLE. OU SCH ×2 (08:26→20:10)
[2019-12-13] MEDS: FUROSEMIDE 20 MG TABLET PO SCH (08:27)
[2019-12-13 15:35] VITALS: BP 116/68
[2019-12-13] MEDS: PRAMIPEXOLE 0.5 MG TABLET. PO SCH (20:08)
[2019-12-13] MEDS: MIRTAZAPINE 7.5 MG TABLET. PO SCH (20:08)
[2019-12-13] MEDS: QUEtiapine 100 MG TABLET. PO SCH (20:10)
--- NOTE | 2019-12-13 22:39 | PN ---
DATE: 12/13/2019 SUBJECTIVE: The patient was seen today, met with the staff, chart reviewed and also covering for Dr. Rebolledo. Staff reports no major problems today. The patient has been calm and cooperative, but tends to get impatient at times and also difficult to redirect at times. OBSERVATION: VITAL SIGNS: Temperature 97.7, blood pressure 109/52, pulse 61, respirations 20, O2 sat 91%. GENERAL: Slept about 6 hours last night. The patient's appetite is good. The patient is not having any side effects to the medication. LABORATORY DATA: The patient's lab reviewed. MEDICATIONS: The patient's current medications include Depakote 375 mg b.i.d. p.o., Seroquel 50 mg daily and 37.5 mg daily, mirtazapine 7.5 mg at night, Zoloft 100 mg daily and also Seroquel 100 mg at night. The patient is not having any side effects to medications. ASSESSMENT: 1. Major neurocognitive disorder, Alzheimer's versus vascular versus delusions, depression and behavioral disturbances. 2. Generalized anxiety disorder. 3. Impulse control disorder, unspecified. PLAN: To continue with the current treatment plan. LENGTH OF STAY: 3-5 days. JOHN COLORADO MD DR: KRISTY/rosenda JOB#: [id number] / [id number]
[2019-12-14] MEDS: CEPHALEXIN 250 MG CAPSULE PO SCH ×4 (05:10→19:57)
[2019-12-14 06:13] VITALS: BP 110/61
[2019-12-14] MEDS: POLYVINYL ALCOHOL 1.4% OPHTH SOLUTION 15ML BOTTLE. OU SCH ×2 (08:01→19:59)
[2019-12-14] MEDS: SERTRALINE 100 MG TABLET. PO SCH (08:01)
[2019-12-14] MEDS: ALLOPURINOL 300 MG TABLET. PO SCH (08:01)
[2019-12-14] MEDS: POLYETHYLENE GLYCOL 3350 17 GM PACKET. PO SCH (08:01)
[2019-12-14] MEDS: DIVALPROEX 125 MG CAP.SPRINK PO SCH ×2 (08:01→16:46)
[2019-12-14] MEDS: FUROSEMIDE 20 MG TABLET PO SCH (08:02)
[2019-12-14] MEDS: MULTIVITAMIN I-VITE TABLET. PO SCH ×2 (08:02→19:57)
[2019-12-14] MEDS: FOLIC ACID 1 MG TABLET PO SCH (08:02)
[2019-12-14] MEDS: PANTOPRAZOLE 40 MG TABLET. PO SCH (08:03)
[2019-12-14] MEDS: METOPROLOL TART IMMED RELEASE 25 MG TABLET PO SCH ×2 (08:03→19:57)
[2019-12-14] MEDS: QUEtiapine 25 MG TABLET. PO SCH ×2 (08:03→16:46)
[2019-12-14] MEDS: ASPIRIN 81 MG TAB.CHEW PO SCH (08:03)
[2019-12-14] MEDS: LACTOBACILLUS RHAMNOSUS GG 1 CAPSULE. PO SCH ×2 (08:03→19:59)
[2019-12-14] MEDS: CHOLECALCIFEROL (VITAMIN D3) 1,000 UNIT TABLET PO SCH (08:04)
[2019-12-14] MEDS: CYANOCOBALAMIN (VITAMIN B-12) 100 MCG TABLET PO SCH (08:04)
[2019-12-14] MEDS: PRAMIPEXOLE 0.25 MG TABLET. PO SCH (08:04)
[2019-12-14] MEDS: BUDESONIDE 0.5 MG/2 ML NEBU NEB SCH (11:21)
[2019-12-14 16:31] VITALS: BP 111/57
[2019-12-14] MEDS: traZODone 50 MG TABLET. PO PRN (19:56)
[2019-12-14] MEDS: QUEtiapine 100 MG TABLET. PO SCH (19:57)
[2019-12-14] MEDS: MIRTAZAPINE 7.5 MG TABLET. PO SCH (19:57)
[2019-12-14] MEDS: PRAMIPEXOLE 0.5 MG TABLET. PO SCH (19:57)
--- NOTE | 2019-12-14 21:45 | PDOC ---
Exam Note: En Note: Please also refer to the separate dictated note~for this date of service dictated separately.~Patient seen individually. Discussed the patient with Nursing staff reviewed the chart.~Reviewed interim history and current functioning. Reviewed vital signs,~Labs/ Radiology~and current medications noted below. Continue current treatment with the changes noted in the dictated addendum note Assessment: Vital Signs/I&O: Vital Signs Date Time Temp Pulse Resp B/P (MAP) Pulse Ox O2 Delivery O2 Flow Rate FiO2 12/14/19 20:40 99 Room Air 12/14/19 19:57 68 111/57 12/14/19 16:31 98.0 18 I & O 12/13/19 12/13/19 12/14/19 15:00 23:00 07:00 Intake Total 120 ml 360 ml Balance 120 ml 360 ml Current Medications: I have reviewed the current psychotropics carefully including drug interactions. Risk benefit ratio favors no change other than as noted in my dictated progress note. Diagnosis: Problems: (1) Major neurocognitive disorder (2) Dementia with behavioral disturbance (3) Anxiety disorder (4) Dementia, vascular, with depression (5) Dementia, vascular, with delusions (6) Dementia in Alzheimer's disease with depression (7) Dementia in Alzheimer's disease with delusions (8) Impulse control disorder ELISABETH BACA MD Dec 14, 2019 21:45
[2019-12-15] MEDS: BUDESONIDE 0.5 MG/2 ML NEBU NEB SCH ×3 (03:38→21:36)
[2019-12-15 06:22] VITALS: BP 109/53
[2019-12-15] MEDS: POLYVINYL ALCOHOL 1.4% OPHTH SOLUTION 15ML BOTTLE. OU SCH ×2 (09:00→20:33)
[2019-12-15] MEDS: POLYETHYLENE GLYCOL 3350 17 GM PACKET. PO SCH (09:00)
[2019-12-15] MEDS: PRAMIPEXOLE 0.25 MG TABLET. PO SCH (09:00)
[2019-12-15] MEDS: ALLOPURINOL 300 MG TABLET. PO SCH (09:33)
[2019-12-15] MEDS: CHOLECALCIFEROL (VITAMIN D3) 1,000 UNIT TABLET PO SCH (10:00)
[2019-12-15] MEDS: LACTOBACILLUS RHAMNOSUS GG 1 CAPSULE. PO SCH ×2 (10:00→20:33)
[2019-12-15] MEDS: SERTRALINE 100 MG TABLET. PO SCH (10:00)
[2019-12-15] MEDS: ASPIRIN 81 MG TAB.CHEW PO SCH (10:00)
[2019-12-15] MEDS: MULTIVITAMIN I-VITE TABLET. PO SCH ×2 (10:00→20:33)
[2019-12-15] MEDS: METOPROLOL TART IMMED RELEASE 25 MG TABLET PO SCH ×2 (10:01→20:34)
[2019-12-15] MEDS: QUEtiapine 25 MG TABLET. PO SCH ×2 (10:01→18:32)
[2019-12-15] MEDS: PANTOPRAZOLE 40 MG TABLET. PO SCH (10:02)
[2019-12-15] MEDS: DIVALPROEX 125 MG CAP.SPRINK PO SCH ×2 (10:02→18:31)
[2019-12-15] MEDS: CEPHALEXIN 250 MG CAPSULE PO SCH ×3 (10:02→20:34)
[2019-12-15] MEDS: FOLIC ACID 1 MG TABLET PO SCH (10:02)
[2019-12-15] MEDS: FUROSEMIDE 20 MG TABLET PO SCH (10:02)
[2019-12-15] MEDS: CYANOCOBALAMIN (VITAMIN B-12) 100 MCG TABLET PO SCH (10:03)
[2019-12-15 15:57] VITALS: BP 131/55
--- NOTE | 2019-12-15 17:31 | PN ---
DATE: 12/14/2019 PSYCHIATRIC PROGRESS NOTE This late entry 12/14/2019 covers elements not covered in my initial note. SUBJECTIVE: I met with the patient evening of 12/14/2019. Per nursing report, the patient remains confused, ambulates with a walker, but not aggressive. REVIEW OF SYSTEMS: No CV, , pulmonary, eye system symptoms on review. MENTAL STATUS EXAM: Oriented to himself. Insight, judgment, recent and remote memory, attention, concentration, fund of knowledge poor, consistent with his diagnosis mentioned in my initial note. PLAN: No change from initial note. MAN AcGene BACA MD DR: CAMPOS/rosenda JOB#: [id number] / [id number]
[2019-12-15] MEDS: QUEtiapine 100 MG TABLET. PO SCH (20:34)
[2019-12-15] MEDS: PRAMIPEXOLE 0.5 MG TABLET. PO SCH (20:34)
[2019-12-15] MEDS: MIRTAZAPINE 7.5 MG TABLET. PO SCH (20:34)
[2019-12-15 21:04] LABS: BASO % 0 % (0-3); EOS % 1 % (0-3); HEMATOCRIT 32.8 % (39.0-53.0); HEMOGLOBIN 10.4 g/dL (13.0-17.5); LYMPH # 1.3 x10^3/uL (1.0-4.8); LYMPH % 18 % (24-48); MEAN CORPUSCULAR HEMOGLOBIN 34 pg (25-35); MEAN CORPUSCULAR HGB CONC 32 g/dL (31-37); MEAN CORPUSCULAR VOLUME 107 fL (79-100); MONO # 0.5 x10^3/uL (0.0-1.1); MONO % 8 % (0-9); NEUT # 5.3 x10^3uL (1.8-7.7); NEUT % 73 % (31-73); PLATELET COUNT 194 x10^3/uL (140-400); RED BLOOD COUNT 3.06 x10^6/uL (4.30-5.70); RED CELL DISTRIBUTION WIDTH 17.9 % (11.5-14.5); WHITE BLOOD COUNT 7.2 x10^3/uL (4.0-11.0)
[2019-12-15 21:11] LABS: ALBUMIN 2.9 g/dL (3.4-5.0); ALBUMIN/GLOBULIN RATIO 0.7 (1.0-1.7); CALCIUM 9.2 mg/dL (8.5-10.1); CREATININE 2.5 mg/dL (0.7-1.3); GFR 24.6; POTASSIUM 4.6 mmol/L (3.5-5.1); TOTAL BILIRUBIN 0.4 mg/dL (0.2-1.0)
--- NOTE | 2019-12-15 21:40 | PDOC ---
Exam Note: En Note: Please also refer to the separate dictated note~for this date of service dictated separately.~Patient seen individually. Discussed the patient with Nursing staff reviewed the chart.~Reviewed interim history and current functioning. Reviewed vital signs,~Labs/ Radiology~and current medications noted below. Continue current treatment with the changes noted in the dictated addendum note Assessment: Vital Signs/I&O: Vital Signs Date Time Temp Pulse Resp B/P (MAP) Pulse Ox O2 Delivery O2 Flow Rate FiO2 12/15/19 20:34 72 131/55 12/15/19 15:57 97.6 16 98 12/15/19 10:23 Room Air I & O 12/14/19 12/14/19 12/15/19 15:00 23:00 07:00 Intake Total 0 ml 240 ml Balance 0 ml 240 ml Labs: Laboratory Tests Test 12/15/19 20:46 White Blood Count 7.2 x10^3/uL (4.0-11.0) Red Blood Count 3.06 x10^6/uL (4.30-5.70) L Hemoglobin 10.4 g/dL (13.0-17.5) L Hematocrit 32.8 % (39.0-53.0) L Mean Corpuscular Volume 107 fL (79-100) H Mean Corpuscular Hemoglobin 34 pg (25-35) Mean Corpuscular Hemoglobin Concent 32 g/dL (31-37) Red Cell Distribution Width 17.9 % (11.5-14.5) H Platelet Count 194 x10^3/uL (140-400) Neutrophils (%) (Auto) 73 % (31-73) Lymphocytes (%) (Auto) 18 % (24-48) L Monocytes (%) (Auto) 8 % (0-9) Eosinophils (%) (Auto) 1 % (0-3) Basophils (%) (Auto) 0 % (0-3) Neutrophils # (Auto) 5.3 x10^3uL (1.8-7.7) Lymphocytes # (Auto) 1.3 x10^3/uL (1.0-4.8) Monocytes # (Auto) 0.5 x10^3/uL (0.0-1.1) Eosinophils # (Auto) 0.0 x10^3/uL (0.0-0.7) Basophils # (Auto) 0.0 x10^3/uL (0.0-0.2) Sodium Level 144 mmol/L (136-145) Potassium Level 4.6 mmol/L (3.5-5.1) Chloride Level 106 mmol/L (98-107) Carbon Dioxide Level 32 mmol/L (21-32) Anion Gap 6 (6-14) Blood Urea Nitrogen 52 mg/dL (8-26) H Creatinine 2.5 mg/dL (0.7-1.3) H Estimated GFR (Cockcroft-Gault) 24.6 BUN/Creatinine Ratio 21 (6-20) H Glucose Level 158 mg/dL (70-99) H Calcium Level 9.2 mg/dL (8.5-10.1) Total Bilirubin 0.4 mg/dL (0.2-1.0) Aspartate Amino Transferase (AST) 25 U/L (15-37) Alanine Aminotransferase (ALT) 26 U/L (16-63) Alkaline Phosphatase 122 U/L (46-116) H Total Protein 7.0 g/dL (6.4-8.2) Albumin 2.9 g/dL (3.4-5.0) L Albumin/Globulin Ratio 0.7 (1.0-1.7) L Current Medications: I have reviewed the current psychotropics carefully including drug interactions. Risk benefit ratio favors no change other than as noted in my dictated progress note. Diagnosis: Problems: (1) Major neurocognitive disorder (2) Dementia with behavioral disturbance (3) Anxiety disorder (4) Dementia, vascular, with depression (5) Dementia, vascular, with delusions (6) Dementia in Alzheimer's disease with depression (7) Dementia in Alzheimer's disease with delusions (8) Impulse control disorder ELISABETH BACA MD Dec 15, 2019 21:40
[2019-12-16 05:45] VITALS: BP 150/72
[2019-12-16] MEDS: QUEtiapine 25 MG TABLET. PO SCH ×2 (08:00→17:34)
[2019-12-16] MEDS: BUDESONIDE 0.5 MG/2 ML NEBU NEB SCH ×2 (08:00→21:16)
[2019-12-16] MEDS: MULTIVITAMIN I-VITE TABLET. PO SCH ×2 (08:01→20:53)
[2019-12-16] MEDS: METOPROLOL TART IMMED RELEASE 25 MG TABLET PO SCH ×2 (08:01→20:54)
[2019-12-16] MEDS: ASPIRIN 81 MG TAB.CHEW PO SCH (08:01)
[2019-12-16] MEDS: FUROSEMIDE 20 MG TABLET PO SCH (08:02)
[2019-12-16] MEDS: CHOLECALCIFEROL (VITAMIN D3) 1,000 UNIT TABLET PO SCH (08:02)
[2019-12-16] MEDS: CYANOCOBALAMIN (VITAMIN B-12) 100 MCG TABLET PO SCH (08:02)
[2019-12-16] MEDS: ALLOPURINOL 300 MG TABLET. PO SCH (08:02)
[2019-12-16] MEDS: LACTOBACILLUS RHAMNOSUS GG 1 CAPSULE. PO SCH ×2 (08:02→20:53)
[2019-12-16] MEDS: DIVALPROEX 125 MG CAP.SPRINK PO SCH ×2 (08:03→17:34)
[2019-12-16] MEDS: SERTRALINE 100 MG TABLET. PO SCH (08:03)
[2019-12-16] MEDS: FOLIC ACID 1 MG TABLET PO SCH (08:03)
[2019-12-16] MEDS: PRAMIPEXOLE 0.25 MG TABLET. PO SCH (08:04)
[2019-12-16] MEDS: POLYETHYLENE GLYCOL 3350 17 GM PACKET. PO SCH (08:04)
[2019-12-16] MEDS: PANTOPRAZOLE 40 MG TABLET. PO SCH (08:07)
[2019-12-16] MEDS: CEPHALEXIN 250 MG CAPSULE PO SCH ×3 (08:07→20:56)
[2019-12-16] MEDS: POLYVINYL ALCOHOL 1.4% OPHTH SOLUTION 15ML BOTTLE. OU SCH ×2 (08:12→20:54)
[2019-12-16 16:31] VITALS: BP 102/57
--- NOTE | 2019-12-16 19:40 | PN ---
DATE: 12/15/2019 PSYCHIATRIC PROGRESS NOTE This late entry of 12/15/2019 covers elements not covered in my initial note. SUBJECTIVE: I met with the patient in the evening of 12/15/2019. Per JEFFERY Aggarwal, the patient slept 7-1/4 hours previous night. He has been confused, wandering, restless, refusing meds at times, spits them out, but not aggressive. REVIEW OF SYSTEMS: Ambulation impaired with walker. No CV, , pulmonary, eye, ENT system symptoms on review. Reliability poor. MENTAL STATUS EXAM: Oriented to himself. Insight, judgment, recent and remote memory, attention, concentration, fund of knowledge poor, consistent with his diagnosis mentioned in my initial note. PLAN: No change from initial note. MAN Katia BACA MD DR: CAMPOS/rosenda JOB#: [id number] / [id number]
[2019-12-16] MEDS: MIRTAZAPINE 7.5 MG TABLET. PO SCH (20:53)
[2019-12-16] MEDS: hydrOXYzine HCL 25 MG TABLET PO PRN (20:54)
[2019-12-16] MEDS: QUEtiapine 100 MG TABLET. PO SCH (20:54)
[2019-12-16] MEDS: PRAMIPEXOLE 0.5 MG TABLET. PO SCH (20:55)
--- NOTE | 2019-12-16 21:59 | PDOC ---
Exam Note: En Note: Please also refer to the separate dictated note~for this date of service dictated separately.~Patient seen individually. Discussed the patient with Nursing staff reviewed the chart.~Reviewed interim history and current functioning. Reviewed vital signs,~Labs/ Radiology~and current medications noted below. Continue current treatment with the changes noted in the dictated addendum note Assessment: Vital Signs/I&O: Vital Signs Date Time Temp Pulse Resp B/P (MAP) Pulse Ox O2 Delivery O2 Flow Rate FiO2 12/16/19 21:17 98 Room Air 12/16/19 20:54 77 102/57 12/16/19 16:31 97.5 18 I & O 12/15/19 12/15/19 12/16/19 15:00 23:00 07:00 Intake Total 120 ml 480 ml Balance 120 ml 480 ml Current Medications: I have reviewed the current psychotropics carefully including drug interactions. Risk benefit ratio favors no change other than as noted in my dictated progress note. Diagnosis: Problems: (1) Major neurocognitive disorder (2) Dementia with behavioral disturbance (3) Anxiety disorder (4) Dementia, vascular, with depression (5) Dementia, vascular, with delusions (6) Dementia in Alzheimer's disease with depression (7) Dementia in Alzheimer's disease with delusions (8) Impulse control disorder ELISABETH BACA MD Dec 16, 2019 21:58
[2019-12-17] MEDS: CEPHALEXIN 250 MG CAPSULE PO SCH ×3 (05:57→20:09)
[2019-12-17] MEDS: BUDESONIDE 0.5 MG/2 ML NEBU NEB SCH ×2 (08:00→20:00)
[2019-12-17] MEDS: DIVALPROEX 125 MG CAP.SPRINK PO SCH ×2 (09:48→17:15)
[2019-12-17] MEDS: CYANOCOBALAMIN (VITAMIN B-12) 100 MCG TABLET PO SCH (09:49)
[2019-12-17] MEDS: PRAMIPEXOLE 0.25 MG TABLET. PO SCH (09:49)
[2019-12-17] MEDS: FOLIC ACID 1 MG TABLET PO SCH (09:49)
[2019-12-17] MEDS: SERTRALINE 100 MG TABLET. PO SCH (09:49)
[2019-12-17] MEDS: ASPIRIN 81 MG TAB.CHEW PO SCH (09:49)
[2019-12-17] MEDS: ALLOPURINOL 300 MG TABLET. PO SCH (09:49)
[2019-12-17] MEDS: FUROSEMIDE 20 MG TABLET PO SCH (09:49)
[2019-12-17] MEDS: QUEtiapine 25 MG TABLET. PO SCH ×2 (09:49→17:15)
[2019-12-17] MEDS: PANTOPRAZOLE 40 MG TABLET. PO SCH (09:49)
[2019-12-17] MEDS: LACTOBACILLUS RHAMNOSUS GG 1 CAPSULE. PO SCH ×2 (09:49→20:08)
[2019-12-17] MEDS: METOPROLOL TART IMMED RELEASE 25 MG TABLET PO SCH ×2 (09:50→20:08)
[2019-12-17] MEDS: CHOLECALCIFEROL (VITAMIN D3) 1,000 UNIT TABLET PO SCH (09:50)
[2019-12-17] MEDS: MULTIVITAMIN I-VITE TABLET. PO SCH ×2 (09:50→20:09)
[2019-12-17] MEDS: POLYVINYL ALCOHOL 1.4% OPHTH SOLUTION 15ML BOTTLE. OU SCH ×2 (09:54→20:09)
[2019-12-17] MEDS: POLYETHYLENE GLYCOL 3350 17 GM PACKET. PO SCH (09:54)
[2019-12-17 15:59] VITALS: BP 102/64
[2019-12-17] MEDS: QUEtiapine 100 MG TABLET. PO SCH (20:08)
[2019-12-17] MEDS: PRAMIPEXOLE 0.5 MG TABLET. PO SCH (20:08)
[2019-12-17] MEDS: MIRTAZAPINE 7.5 MG TABLET. PO SCH (20:09)
--- NOTE | 2019-12-17 23:00 | PDOC ---
Exam Note: En Note: Please also refer to the separate dictated note~for this date of service dictated separately.~Patient seen individually. Discussed the patient with Nursing staff reviewed the chart.~Reviewed interim history and current functioning. Reviewed vital signs,~Labs/ Radiology~and current medications noted below. Continue current treatment with the changes noted in the dictated addendum note Assessment: Vital Signs/I&O: Vital Signs Date Time Temp Pulse Resp B/P (MAP) Pulse Ox O2 Delivery O2 Flow Rate FiO2 12/17/19 20:08 69 102/64 12/17/19 15:59 98.1 16 94 12/17/19 11:28 Room Air I & O 12/16/19 12/16/19 12/17/19 15:00 23:00 07:00 Intake Total 840 ml 360 ml Balance 840 ml 360 ml Current Medications: I have reviewed the current psychotropics carefully including drug interactions. Risk benefit ratio favors no change other than as noted in my dictated progress note. Diagnosis: Problems: (1) Major neurocognitive disorder (2) Dementia with behavioral disturbance (3) Anxiety disorder (4) Dementia, vascular, with depression (5) Dementia, vascular, with delusions (6) Dementia in Alzheimer's disease with depression (7) Dementia in Alzheimer's disease with delusions (8) Impulse control disorder ELISABETH BACA MD Dec 17, 2019 23:00
[2019-12-18] MEDS: CEPHALEXIN 250 MG CAPSULE PO SCH ×2 (05:45→12:31)
[2019-12-18 06:21] VITALS: BP 103/53
[2019-12-18] MEDS: DIVALPROEX 125 MG CAP.SPRINK PO SCH ×2 (08:10→17:00)
[2019-12-18] MEDS: POLYETHYLENE GLYCOL 3350 17 GM PACKET. PO SCH (08:10)
[2019-12-18] MEDS: SERTRALINE 100 MG TABLET. PO SCH (08:10)
[2019-12-18] MEDS: POLYVINYL ALCOHOL 1.4% OPHTH SOLUTION 15ML BOTTLE. OU SCH ×2 (08:10→21:00)
[2019-12-18] MEDS: LACTOBACILLUS RHAMNOSUS GG 1 CAPSULE. PO SCH ×2 (08:10→21:02)
[2019-12-18] MEDS: CHOLECALCIFEROL (VITAMIN D3) 1,000 UNIT TABLET PO SCH (08:10)
[2019-12-18] MEDS: ASPIRIN 81 MG TAB.CHEW PO SCH (08:11)
[2019-12-18] MEDS: PANTOPRAZOLE 40 MG TABLET. PO SCH (08:11)
[2019-12-18] MEDS: PRAMIPEXOLE 0.25 MG TABLET. PO SCH (08:11)
[2019-12-18] MEDS: MULTIVITAMIN I-VITE TABLET. PO SCH ×2 (08:11→21:02)
[2019-12-18] MEDS: FOLIC ACID 1 MG TABLET PO SCH (08:11)
[2019-12-18] MEDS: QUEtiapine 25 MG TABLET. PO SCH ×2 (08:11→17:00)
[2019-12-18] MEDS: ALLOPURINOL 300 MG TABLET. PO SCH (08:11)
[2019-12-18] MEDS: FUROSEMIDE 20 MG TABLET PO SCH (08:11)
[2019-12-18] MEDS: METOPROLOL TART IMMED RELEASE 25 MG TABLET PO SCH ×2 (08:12→21:00)
[2019-12-18] MEDS: CYANOCOBALAMIN (VITAMIN B-12) 100 MCG TABLET PO SCH (08:12)
--- NOTE | 2019-12-18 09:43 | PN ---
DATE: 12/17/2019 PSYCHIATRIC PROGRESS NOTE This late entry December 16 covers elements not covered in my initial note. SUBJECTIVE: I met with the patient in the evening and staffed at a treatment team meeting with the entire team in the morning. The patient slept 5 hours previous night, but slept in the morning. He has been assessed for hospice care. We will await a final determination. REVIEW OF SYSTEMS: Ambulation impaired, with walker. No CV, , pulmonary, eye system symptoms on review. MENTAL STATUS EXAM: Oriented to himself. Insight, judgment, recent and remote memory, attention, concentration, fund of knowledge poor, consistent with his diagnosis mentioned in my initial note. PLAN: No change from initial note. MAN Katia BACA MD DR: CAMPOS/rosenda JOB#: [id number] / [id number]
--- NOTE | 2019-12-18 09:48 | PN ---
DATE: 12/16/2019 PSYCHIATRIC PROGRESS NOTE This late entry 12/16/2019 covers elements not covered in my initial note. SUBJECTIVE: I met with the patient evening of 12/16/2019. Overall, per JEFFERY Flores, the patient remains confused, but less agitated. He slept well previous night. REVIEW OF SYSTEMS: Ambulation impaired with walker. No CV, , pulmonary, eye, ENT system symptoms on review. MENTAL STATUS EXAM: As I met with him, he was still picking on the scabs on his forearms and did redirect. MENTAL STATUS EXAM: Oriented to himself. Insight, judgment, recent and remote memory, attention, concentration, fund of knowledge poor consistent with his diagnosis mentioned in my initial note. PLAN: No change from initial note. MAN Katia BACA MD DR: CAMPOS/rosenda JOB#: [id number] / [id number]
[2019-12-18] MEDS: BUDESONIDE 0.5 MG/2 ML NEBU NEB SCH ×2 (11:40→20:00)
[2019-12-18 16:24] VITALS: BP 100/51
[2019-12-18] MEDS: MIRTAZAPINE 7.5 MG TABLET. PO SCH (21:02)
[2019-12-18] MEDS: PRAMIPEXOLE 0.5 MG TABLET. PO SCH (21:02)
[2019-12-18] MEDS: QUEtiapine 100 MG TABLET. PO SCH (21:02)
--- NOTE | 2019-12-18 22:46 | PDOC ---
Exam Note: En Note: Please also refer to the separate dictated note~for this date of service dictated separately.~ Discussed the patient with Nursing staff reviewed the chart.~Reviewed interim history and current functioning. Reviewed vital signs,~Labs/ Radiology~and current medications noted below. Continue current treatment with the changes noted in the dictated addendum note Assessment: Vital Signs/I&O: Vital Signs Date Time Temp Pulse Resp B/P (MAP) Pulse Ox O2 Delivery O2 Flow Rate FiO2 12/18/19 16:24 97.8 68 18 100/51 (67) 96 12/18/19 11:46 Room Air I & O 12/17/19 12/17/19 12/18/19 15:00 23:00 07:00 Intake Total 0 ml 120 ml Balance 0 ml 120 ml Current Medications: I have reviewed the current psychotropics carefully including drug interactions. Risk benefit ratio favors no change other than as noted in my dictated progress note. Diagnosis: Problems: (1) Major neurocognitive disorder (2) Dementia with behavioral disturbance (3) Anxiety disorder (4) Dementia, vascular, with depression (5) Dementia, vascular, with delusions (6) Dementia in Alzheimer's disease with depression (7) Dementia in Alzheimer's disease with delusions (8) Impulse control disorder ELISABETH BACA MD Dec 18, 2019 22:46
[2019-12-19 06:45] VITALS: BP 114/62
[2019-12-19] MEDS: BUDESONIDE 0.5 MG/2 ML NEBU NEB SCH ×2 (08:00→20:00)
[2019-12-19] MEDS: PRAMIPEXOLE 0.25 MG TABLET. PO SCH (08:56)
[2019-12-19] MEDS: PANTOPRAZOLE 40 MG TABLET. PO SCH (08:56)
[2019-12-19] MEDS: LACTOBACILLUS RHAMNOSUS GG 1 CAPSULE. PO SCH ×2 (08:56→20:06)
[2019-12-19] MEDS: METOPROLOL TART IMMED RELEASE 25 MG TABLET PO SCH ×2 (08:56→20:07)
[2019-12-19] MEDS: POLYETHYLENE GLYCOL 3350 17 GM PACKET. PO SCH (08:56)
[2019-12-19] MEDS: ALLOPURINOL 300 MG TABLET. PO SCH (08:57)
[2019-12-19] MEDS: FOLIC ACID 1 MG TABLET PO SCH (08:57)
[2019-12-19] MEDS: ASPIRIN 81 MG TAB.CHEW PO SCH (08:57)
[2019-12-19] MEDS: CHOLECALCIFEROL (VITAMIN D3) 1,000 UNIT TABLET PO SCH (08:57)
[2019-12-19] MEDS: QUEtiapine 25 MG TABLET. PO SCH ×2 (08:57→17:42)
[2019-12-19] MEDS: MULTIVITAMIN I-VITE TABLET. PO SCH ×2 (08:57→20:05)
[2019-12-19] MEDS: SERTRALINE 100 MG TABLET. PO SCH (08:58)
[2019-12-19] MEDS: CYANOCOBALAMIN (VITAMIN B-12) 100 MCG TABLET PO SCH (08:58)
[2019-12-19] MEDS: DIVALPROEX 125 MG CAP.SPRINK PO SCH ×2 (08:58→17:42)
[2019-12-19] MEDS: FUROSEMIDE 20 MG TABLET PO SCH (08:58)
[2019-12-19] MEDS: POLYVINYL ALCOHOL 1.4% OPHTH SOLUTION 15ML BOTTLE. OU SCH ×2 (08:59→20:07)
[2019-12-19 16:02] VITALS: BP 125/71
[2019-12-19] MEDS: PRAMIPEXOLE 0.5 MG TABLET. PO SCH (20:05)
[2019-12-19] MEDS: MIRTAZAPINE 7.5 MG TABLET. PO SCH (20:06)
[2019-12-19] MEDS: QUEtiapine 100 MG TABLET. PO SCH (20:06)
--- NOTE | 2019-12-19 22:37 | PDOC ---
Exam Note: En Note: Please also refer to the separate dictated note~for this date of service dictated separately. Discussed the patient with Nursing staff reviewed the chart.~Reviewed interim history and current functioning. Reviewed vital signs,~Labs/ Radiology~and current medications noted below. Continue current treatment with the changes noted in the dictated addendum note Assessment: Vital Signs/I&O: Vital Signs Date Time Temp Pulse Resp B/P (MAP) Pulse Ox O2 Delivery O2 Flow Rate FiO2 12/19/19 20:07 83 125/71 12/19/19 16:02 98.3 16 95 12/19/19 06:45 Room Air I & O 12/18/19 12/18/19 12/19/19 15:00 23:00 07:00 Intake Total 960 ml 120 ml Balance 960 ml 120 ml Current Medications: I have reviewed the current psychotropics carefully including drug interactions. Risk benefit ratio favors no change other than as noted in my dictated progress note. Diagnosis: Problems: (1) Major neurocognitive disorder (2) Dementia with behavioral disturbance (3) Anxiety disorder (4) Dementia, vascular, with depression (5) Dementia, vascular, with delusions (6) Dementia in Alzheimer's disease with depression (7) Dementia in Alzheimer's disease with delusions (8) Impulse control disorder ELISABETH BACA MD Dec 19, 2019 22:37
[2019-12-20 06:09] VITALS: BP 110/64
[2019-12-20] MEDS ORDERED: POLYVINYL ALCOHOL 1.4% OPHTH SOLUTION 15ML BOTTLE. OU PRN (07:45)
[2019-12-20] MEDS: BUDESONIDE 0.5 MG/2 ML NEBU NEB SCH ×2 (08:00→20:00)
[2019-12-20] MEDS: POLYETHYLENE GLYCOL 3350 17 GM PACKET. PO SCH (08:37)
[2019-12-20] MEDS: CYANOCOBALAMIN (VITAMIN B-12) 100 MCG TABLET PO SCH (08:38)
[2019-12-20] MEDS: CHOLECALCIFEROL (VITAMIN D3) 1,000 UNIT TABLET PO SCH (08:38)
[2019-12-20] MEDS: DIVALPROEX 125 MG CAP.SPRINK PO SCH ×2 (08:38→18:28)
[2019-12-20] MEDS: ASPIRIN 81 MG TAB.CHEW PO SCH (08:38)
[2019-12-20] MEDS: MULTIVITAMIN I-VITE TABLET. PO SCH ×2 (08:38→20:14)
[2019-12-20] MEDS: LACTOBACILLUS RHAMNOSUS GG 1 CAPSULE. PO SCH ×2 (08:38→20:12)
[2019-12-20] MEDS: PANTOPRAZOLE 40 MG TABLET. PO SCH (08:38)
[2019-12-20] MEDS: FUROSEMIDE 20 MG TABLET PO SCH (08:39)
[2019-12-20] MEDS: FOLIC ACID 1 MG TABLET PO SCH (08:39)
[2019-12-20] MEDS: ALLOPURINOL 300 MG TABLET. PO SCH (08:39)
[2019-12-20] MEDS: QUEtiapine 25 MG TABLET. PO SCH ×2 (08:40→18:28)
[2019-12-20] MEDS: SERTRALINE 100 MG TABLET. PO SCH (08:40)
[2019-12-20] MEDS: METOPROLOL TART IMMED RELEASE 25 MG TABLET PO SCH ×2 (08:41→20:13)
[2019-12-20] MEDS: PRAMIPEXOLE 0.25 MG TABLET. PO SCH (09:00)
[2019-12-20 16:29] VITALS: BP 122/48
[2019-12-20] MEDS: MIRTAZAPINE 7.5 MG TABLET. PO SCH (20:12)
[2019-12-20] MEDS: PRAMIPEXOLE 0.5 MG TABLET. PO SCH (20:14)
[2019-12-20] MEDS: QUEtiapine 100 MG TABLET. PO SCH (20:14)
[2019-12-20] MEDS: hydrOXYzine HCL 25 MG TABLET PO PRN (20:15)
--- NOTE | 2019-12-20 21:44 | PDOC ---
Exam Note: En Note: Please also refer to the separate dictated note~for this date of service dictated separately. Discussed the patient with Nursing staff reviewed the chart.~Reviewed interim history and current functioning. Reviewed vital signs,~Labs/ Radiology~and current medications noted below. Continue current treatment with the changes noted in the dictated addendum note Assessment: Vital Signs/I&O: Vital Signs Date Time Temp Pulse Resp B/P (MAP) Pulse Ox O2 Delivery O2 Flow Rate FiO2 12/20/19 20:13 56 124/60 12/20/19 16:29 97.4 20 93 Room Air I & O 12/19/19 12/19/19 12/20/19 14:59 22:59 06:59 Intake Total 900 ml 120 ml Balance 900 ml 120 ml Current Medications: I have reviewed the current psychotropics carefully including drug interactions. Risk benefit ratio favors no change other than as noted in my dictated progress note. 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
[2019-12-21 05:32] VITALS: BP 120/62
[2019-12-21 07:33] LABS: BASO % 1 % (0-3); EOS # 0.1 x10^3/uL (0.0-0.7); EOS % 2 % (0-3); HEMOGLOBIN 9.4 g/dL (13.0-17.5); LYMPH # 1.4 x10^3/uL (1.0-4.8); LYMPH % 32 % (24-48); MEAN CORPUSCULAR HEMOGLOBIN 34 pg (25-35); MEAN CORPUSCULAR HGB CONC 32 g/dL (31-37); MEAN CORPUSCULAR VOLUME 106 fL (79-100); MONO # 0.6 x10^3/uL (0.0-1.1); MONO % 14 % (0-9); NEUT # 2.2 x10^3uL (1.8-7.7); NEUT % 51 % (31-73); PLATELET COUNT 138 x10^3/uL (140-400); RED BLOOD COUNT 2.74 x10^6/uL (4.30-5.70); RED CELL DISTRIBUTION WIDTH 17.2 % (11.5-14.5); WHITE BLOOD COUNT 4.2 x10^3/uL (4.0-11.0)
[2019-12-21 07:42] LABS: ALBUMIN 2.4 g/dL (3.4-5.0); ALBUMIN/GLOBULIN RATIO 0.7 (1.0-1.7); CALCIUM 8.7 mg/dL (8.5-10.1); CREATININE 2.3 mg/dL (0.7-1.3); POTASSIUM 4.5 mmol/L (3.5-5.1); TOTAL BILIRUBIN 0.3 mg/dL (0.2-1.0); TOTAL PROTEIN 5.9 g/dL (6.4-8.2)
[2019-12-21] MEDS: BUDESONIDE 0.5 MG/2 ML NEBU NEB SCH ×2 (08:00→19:54)
[2019-12-21 08:37] LABS: % ATYL 1 % (0-0); % BANDS 2 % (0-9); % LYMPHS 29 % (24-48); % MONOS 11 % (0-10); % SEGS 57 % (35-66)
[2019-12-21 08:38] LABS: ANISOCYTOSIS SLIGHT; PLT ESTIMATE DECREASED (ADEQUATE)
[2019-12-21] MEDS: PRAMIPEXOLE 0.25 MG TABLET. PO SCH (09:17)
[2019-12-21] MEDS: MULTIVITAMIN I-VITE TABLET. PO SCH ×2 (09:17→19:54)
[2019-12-21] MEDS: LACTOBACILLUS RHAMNOSUS GG 1 CAPSULE. PO SCH ×2 (09:17→19:54)
[2019-12-21] MEDS: DIVALPROEX 125 MG CAP.SPRINK PO SCH ×2 (09:17→17:13)
[2019-12-21] MEDS: CHOLECALCIFEROL (VITAMIN D3) 1,000 UNIT TABLET PO SCH (09:17)
[2019-12-21] MEDS: SERTRALINE 100 MG TABLET. PO SCH (09:18)
[2019-12-21] MEDS: FOLIC ACID 1 MG TABLET PO SCH (09:18)
[2019-12-21] MEDS: QUEtiapine 25 MG TABLET. PO SCH ×2 (09:18→17:12)
[2019-12-21] MEDS: ALLOPURINOL 300 MG TABLET. PO SCH (09:18)
[2019-12-21] MEDS: ASPIRIN 81 MG TAB.CHEW PO SCH (09:19)
[2019-12-21] MEDS: PANTOPRAZOLE 40 MG TABLET. PO SCH (09:19)
[2019-12-21] MEDS: METOPROLOL TART IMMED RELEASE 25 MG TABLET PO SCH ×2 (09:19→19:55)
[2019-12-21] MEDS: CYANOCOBALAMIN (VITAMIN B-12) 100 MCG TABLET PO SCH (09:20)
[2019-12-21] MEDS: POLYETHYLENE GLYCOL 3350 17 GM PACKET. PO SCH (09:20)
[2019-12-21] MEDS: FUROSEMIDE 20 MG TABLET PO SCH (09:20)
[2019-12-21 16:18] VITALS: BP 154/56
[2019-12-21] MEDS: PRAMIPEXOLE 0.5 MG TABLET. PO SCH (19:54)
[2019-12-21] MEDS: QUEtiapine 100 MG TABLET. PO SCH (19:54)
[2019-12-21] MEDS: MIRTAZAPINE 7.5 MG TABLET. PO SCH (19:55)
--- NOTE | 2019-12-21 21:46 | PDOC ---
Exam Note: En Note: Please also refer to the separate dictated note~for this date of service dictated separately. Discussed the patient with Nursing staff reviewed the chart.~Reviewed interim history and current functioning. Reviewed vital signs,~Labs/ Radiology~and current medications noted below. Continue current treatment with the changes noted in the dictated addendum note Assessment: Vital Signs/I&O: Vital Signs Date Time Temp Pulse Resp B/P (MAP) Pulse Ox O2 Delivery O2 Flow Rate FiO2 12/21/19 19:55 66 154/56 12/21/19 16:18 98.7 16 90 12/20/19 16:29 Room Air I & O 12/20/19 12/20/19 12/21/19 15:00 23:00 07:00 Intake Total 460 ml 420 ml Balance 460 ml 420 ml Labs: Laboratory Tests Test 12/21/19 07:15 White Blood Count 4.2 x10^3/uL (4.0-11.0) Red Blood Count 2.74 x10^6/uL (4.30-5.70) L Hemoglobin 9.4 g/dL (13.0-17.5) L Hematocrit 29.0 % (39.0-53.0) L Mean Corpuscular Volume 106 fL (79-100) H Mean Corpuscular Hemoglobin 34 pg (25-35) Mean Corpuscular Hemoglobin Concent 32 g/dL (31-37) Red Cell Distribution Width 17.2 % (11.5-14.5) H Platelet Count 138 x10^3/uL (140-400) L Neutrophils (%) (Auto) 51 % (31-73) Lymphocytes (%) (Auto) 32 % (24-48) Monocytes (%) (Auto) 14 % (0-9) H Eosinophils (%) (Auto) 2 % (0-3) Basophils (%) (Auto) 1 % (0-3) Neutrophils # (Auto) 2.2 x10^3uL (1.8-7.7) Lymphocytes # (Auto) 1.4 x10^3/uL (1.0-4.8) Monocytes # (Auto) 0.6 x10^3/uL (0.0-1.1) Eosinophils # (Auto) 0.1 x10^3/uL (0.0-0.7) Basophils # (Auto) 0.0 x10^3/uL (0.0-0.2) Segmented Neutrophils % 57 % (35-66) Band Neutrophils % 2 % (0-9) Lymphocytes % 29 % (24-48) Atypical Lymphocytes % (Manual) 1 % (0-0) H Monocytes % 11 % (0-10) H Platelet Estimate Decreased (ADEQUATE) Anisocytosis Slight Macrocytosis Slight Sodium Level 151 mmol/L (136-145) H Potassium Level 4.5 mmol/L (3.5-5.1) Chloride Level 113 mmol/L (98-107) H Carbon Dioxide Level 31 mmol/L (21-32) Anion Gap 7 (6-14) Blood Urea Nitrogen 41 mg/dL (8-26) H Creatinine 2.3 mg/dL (0.7-1.3) H Estimated GFR (Cockcroft-Gault) 27.0 BUN/Creatinine Ratio 18 (6-20) Glucose Level 71 mg/dL (70-99) Calcium Level 8.7 mg/dL (8.5-10.1) Total Bilirubin 0.3 mg/dL (0.2-1.0) Aspartate Amino Transferase (AST) 31 U/L (15-37) Alanine Aminotransferase (ALT) 27 U/L (16-63) Alkaline Phosphatase 111 U/L (46-116) Total Protein 5.9 g/dL (6.4-8.2) L Albumin 2.4 g/dL (3.4-5.0) L Albumin/Globulin Ratio 0.7 (1.0-1.7) L Current Medications: I have reviewed the current psychotropics carefully including drug interactions. Risk benefit ratio favors no change other than as noted in my dictated progress note. Diagnosis: Problems: (1) Major neurocognitive disorder (2) Dementia with behavioral disturbance (3) Anxiety disorder (4) Dementia, vascular, with depression (5) Dementia, vascular, with delusions (6) Dementia in Alzheimer's disease with depression (7) Dementia in Alzheimer's disease with delusions (8) Impulse control disorder ELISABETH BACA MD Dec 21, 2019 21:46
[2019-12-22 05:45] VITALS: BP 132/64
[2019-12-22] MEDS: BUDESONIDE 0.5 MG/2 ML NEBU NEB SCH ×2 (08:00→19:56)
[2019-12-22] MEDS: ASPIRIN 81 MG TAB.CHEW PO SCH (08:44)
[2019-12-22] MEDS: QUEtiapine 25 MG TABLET. PO SCH ×2 (08:44→17:15)
[2019-12-22] MEDS: DIVALPROEX 125 MG CAP.SPRINK PO SCH ×2 (08:44→17:15)
[2019-12-22] MEDS: LACTOBACILLUS RHAMNOSUS GG 1 CAPSULE. PO SCH ×2 (08:45→19:56)
[2019-12-22] MEDS: METOPROLOL TART IMMED RELEASE 25 MG TABLET PO SCH ×2 (08:46→19:57)
[2019-12-22] MEDS: PANTOPRAZOLE 40 MG TABLET. PO SCH (08:47)
[2019-12-22] MEDS: MULTIVITAMIN I-VITE TABLET. PO SCH ×2 (08:47→19:56)
[2019-12-22] MEDS: CHOLECALCIFEROL (VITAMIN D3) 1,000 UNIT TABLET PO SCH (08:47)
[2019-12-22] MEDS: PRAMIPEXOLE 0.25 MG TABLET. PO SCH (08:47)
[2019-12-22] MEDS: CYANOCOBALAMIN (VITAMIN B-12) 100 MCG TABLET PO SCH (08:47)
[2019-12-22] MEDS: ALLOPURINOL 300 MG TABLET. PO SCH (08:47)
[2019-12-22] MEDS: SERTRALINE 100 MG TABLET. PO SCH (08:47)
[2019-12-22] MEDS: FUROSEMIDE 20 MG TABLET PO SCH (08:47)
[2019-12-22] MEDS: FOLIC ACID 1 MG TABLET PO SCH (08:47)
[2019-12-22] MEDS: POLYETHYLENE GLYCOL 3350 17 GM PACKET. PO SCH (08:48)
[2019-12-22 15:37] VITALS: BP 103/50
[2019-12-22] MEDS: MIRTAZAPINE 7.5 MG TABLET. PO SCH (19:56)
[2019-12-22] MEDS: PRAMIPEXOLE 0.5 MG TABLET. PO SCH (19:56)
[2019-12-22] MEDS: QUEtiapine 100 MG TABLET. PO SCH (19:56)
[2019-12-22] MEDS: hydrOXYzine HCL 25 MG TABLET PO PRN (19:57)
[2019-12-23] MEDS: ACETAMINOPHEN 325 MG TABLET PO PRN (05:16)
[2019-12-23 06:02] VITALS: BP 134/71
--- NOTE | 2019-12-23 06:32 | PDOC ---
Exam Note: En Note: This is a late entry for 12/18/2019. Currently, the unit is shutdown for any admissions and discharges as directed by the Centers for Disease Control (CDC) and the [facility] ([facility]) because of Coronavirus (COVID-19) exposure on the unit. S/O: This is a Telepsychiatry progress note . This note covers elements not covered in my initial note. The patient was reviewed with nursing staff, reviewed the chart and TeleHealth Services provided for this date for the patient. Report was from JEFFERY Causey that he takes his medications in chocolate pudding, remains confused. ROS: Ambulation impaired with walker. No CV, , Pulmonary, Eye system symptoms on review. MSE: Oriented to himself. Insight and judgment, recent and remote memory, attention and concentration, fund of knowledge is poor consistent with his diagnosis mentioned in my initial note. Labs: Reviewed. Imp: Unchanged from my initial note. Plan: No change from initial note. Assessment: Vital Signs/I&O: Vital Signs Date Time Temp Pulse Resp B/P (MAP) Pulse Ox O2 Delivery O2 Flow Rate FiO2 12/23/19 06:02 98.9 82 16 134/71 (92) 90 12/20/19 16:29 Room Air I & O 12/22/19 12/22/19 12/23/19 15:00 23:00 07:00 Intake Total 0 ml 700 ml Balance 0 ml 700 ml Current Medications: I have reviewed the current psychotropics carefully including drug interactions. Risk benefit ratio favors no change other than as noted in my dictated progress note. Diagnosis: Problems: (1) Major neurocognitive disorder (2) Dementia with behavioral disturbance (3) Anxiety disorder (4) Dementia, vascular, with depression (5) Dementia, vascular, with delusions (6) Dementia in Alzheimer's disease with depression (7) Dementia in Alzheimer's disease with delusions (8) Impulse control disorder ELISABETH BACA MD Dec 23, 2019 06:32
[2019-12-23 06:52] LABS: BASO % 1 % (0-3); EOS % 1 % (0-3); HEMATOCRIT 30.9 % (39.0-53.0); HEMOGLOBIN 9.8 g/dL (13.0-17.5); LYMPH # 1.7 x10^3/uL (1.0-4.8); LYMPH % 37 % (24-48); MEAN CORPUSCULAR HEMOGLOBIN 34 pg (25-35); MEAN CORPUSCULAR HGB CONC 32 g/dL (31-37); MEAN CORPUSCULAR VOLUME 108 fL (79-100); MONO # 0.4 x10^3/uL (0.0-1.1); MONO % 10 % (0-9); NEUT # 2.4 x10^3uL (1.8-7.7); NEUT % 52 % (31-73); PLATELET COUNT 136 x10^3/uL (140-400); RED BLOOD COUNT 2.86 x10^6/uL (4.30-5.70); RED CELL DISTRIBUTION WIDTH 17.3 % (11.5-14.5); WHITE BLOOD COUNT 4.6 x10^3/uL (4.0-11.0)
[2019-12-23 07:16] LABS: INFLUENZA A PATIENT NEGATIVE (NEGATIVE); INFLUENZA B PATIENT NEGATIVE (NEGATIVE)
--- NOTE | 2019-12-23 07:23 | PDOC ---
Exam Note: En Note: This is a late entry for 12/19/2019. Currently, the unit is shutdown for any admissions and discharges as directed by the Centers for Disease Control (CDC) and the [facility] ([facility]) because of Coronavirus (COVID-19) exposure on the unit. S/O: This note covers elements not covered in my initial note. The patient was reviewed with nursing staff, reviewed the chart and TeleHealth Services provided for this date for the patient. Report was from JEFFERY Causey. He has been confused. Behaviors are no different from previous. He is somewhat restless. ROS: Ambulation impaired with walker. No CV, , Pulmonary, Eye system symptoms on review. MSE: Oriented to himself. Insight and judgment, recent and remote memory, attention and concentration, fund of knowledge is poor consistent with his diagnosis mentioned in my initial note. Labs: Reviewed. Imp: Unchanged from my initial note. Plan: No change from initial note. Assessment: Vital Signs/I&O: Vital Signs Date Time Temp Pulse Resp B/P (MAP) Pulse Ox O2 Delivery O2 Flow Rate FiO2 12/23/19 06:02 98.9 82 16 134/71 (92) 90 12/20/19 16:29 Room Air I & O 12/22/19 12/22/19 12/23/19 14:59 22:59 06:59 Intake Total 0 ml 700 ml Balance 0 ml 700 ml Labs: Laboratory Tests Test 12/23/19 06:39 12/23/19 06:42 White Blood Count 4.6 x10^3/uL (4.0-11.0) Red Blood Count 2.86 x10^6/uL (4.30-5.70) L Hemoglobin 9.8 g/dL (13.0-17.5) L Hematocrit 30.9 % (39.0-53.0) L Mean Corpuscular Volume 108 fL (79-100) H Mean Corpuscular Hemoglobin 34 pg (25-35) Mean Corpuscular Hemoglobin Concent 32 g/dL (31-37) Red Cell Distribution Width 17.3 % (11.5-14.5) H Platelet Count 136 x10^3/uL (140-400) L Neutrophils (%) (Auto) 52 % (31-73) Lymphocytes (%) (Auto) 37 % (24-48) Monocytes (%) (Auto) 10 % (0-9) H Eosinophils (%) (Auto) 1 % (0-3) Basophils (%) (Auto) 1 % (0-3) Neutrophils # (Auto) 2.4 x10^3uL (1.8-7.7) Lymphocytes # (Auto) 1.7 x10^3/uL (1.0-4.8) Monocytes # (Auto) 0.4 x10^3/uL (0.0-1.1) Eosinophils # (Auto) 0.0 x10^3/uL (0.0-0.7) Basophils # (Auto) 0.0 x10^3/uL (0.0-0.2) Influenza Type A (Rapid) Negative (NEGATIVE) Influenza Type B (Rapid) Negative (NEGATIVE) Current Medications: I have reviewed the current psychotropics carefully including drug interactions. Risk benefit ratio favors no change other than as noted in my dictated progress note. Diagnosis: Problems: (1) Major neurocognitive disorder (2) Dementia with behavioral disturbance (3) Anxiety disorder (4) Dementia, vascular, with depression (5) Dementia, vascular, with delusions (6) Dementia in Alzheimer's disease with depression (7) Dementia in Alzheimer's disease with delusions (8) Impulse control disorder ELISABETH BACA MD Dec 23, 2019 07:23
--- NOTE | 2019-12-23 07:52 | PDOC ---
Exam Note: En Note: This is a late entry 12/20/2019. Currently, the unit is shutdown for any admissions and discharges as directed by the Centers for Disease Control (CDC) and the [facility] ([facility]) because of Coronavirus (COVID-19) exposure on the unit. S/O: This note covers elements not covered in my initial note. The patient was reviewed with nursing staff, reviewed the chart and TeleHealth Services provided for this date for the patient. Report was from JEFFERY Causey. He has had some cough. ROS: Ambulation impaired with walker. No CV, , Pulmonary, Eye system symptoms on review. MSE: Oriented to himself. Insight and judgment, recent and remote memory, attention and concentration, fund of knowledge is poor consistent with his diagnosis mentioned in my initial note. Labs: Reviewed. His creatinine is 2.5, will defer to Dr. Roy. Imp: Unchanged from my initial note. Plan: No change from initial note. Assessment: Vital Signs/I&O: Vital Signs Date Time Temp Pulse Resp B/P (MAP) Pulse Ox O2 Delivery O2 Flow Rate FiO2 12/23/19 06:02 98.9 82 16 134/71 (92) 90 12/20/19 16:29 Room Air I & O 12/22/19 12/22/19 12/23/19 15:00 23:00 07:00 Intake Total 0 ml 700 ml Balance 0 ml 700 ml Labs: Laboratory Tests Test 12/23/19 06:39 12/23/19 06:42 White Blood Count 4.6 x10^3/uL (4.0-11.0) Red Blood Count 2.86 x10^6/uL (4.30-5.70) L Hemoglobin 9.8 g/dL (13.0-17.5) L Hematocrit 30.9 % (39.0-53.0) L Mean Corpuscular Volume 108 fL (79-100) H Mean Corpuscular Hemoglobin 34 pg (25-35) Mean Corpuscular Hemoglobin Concent 32 g/dL (31-37) Red Cell Distribution Width 17.3 % (11.5-14.5) H Platelet Count 136 x10^3/uL (140-400) L Neutrophils (%) (Auto) 52 % (31-73) Lymphocytes (%) (Auto) 37 % (24-48) Monocytes (%) (Auto) 10 % (0-9) H Eosinophils (%) (Auto) 1 % (0-3) Basophils (%) (Auto) 1 % (0-3) Neutrophils # (Auto) 2.4 x10^3uL (1.8-7.7) Lymphocytes # (Auto) 1.7 x10^3/uL (1.0-4.8) Monocytes # (Auto) 0.4 x10^3/uL (0.0-1.1) Eosinophils # (Auto) 0.0 x10^3/uL (0.0-0.7) Basophils # (Auto) 0.0 x10^3/uL (0.0-0.2) Influenza Type A (Rapid) Negative (NEGATIVE) Influenza Type B (Rapid) Negative (NEGATIVE) Group A Streptococcus Rapid Negative (NEGATIVE) Current Medications: I have reviewed the current psychotropics carefully including drug interactions. Risk benefit ratio favors no change other than as noted in my dictated progress note. Diagnosis: Problems: (1) Major neurocognitive disorder (2) Dementia with behavioral disturbance (3) Anxiety disorder (4) Dementia, vascular, with depression (5) Dementia, vascular, with delusions (6) Dementia in Alzheimer's disease with depression (7) Dementia in Alzheimer's disease with delusions (8) Impulse control disorder ELISABETH BACA MD Dec 23, 2019 07:52
--- NOTE | 2019-12-23 07:58 | RAD ---
Examination: PORTABLE CHEST 1V History: Cough Comparison/Correlation: 11/17/2019 portal chest x-ray exam Findings: Upright frontal view of the chest was obtained. A dual-lead left-sided pacemaker is present. Sternal wires and mediastinal clips are present. Heart size is normal. No pneumothorax. Patient is rotated limiting assessment. Subtle interstitial thickening of the left lung base is present in the retrocardiac region. No definite effusion. Bony structures are grossly unremarkable. Impression: Nonspecific interstitial thickening versus retrocardiac region again seen. No suspicious process in the interval. Electronically signed by: David Garcia MD (12/23/2019 7:55 AM) [id number]
[2019-12-23] MEDS: BUDESONIDE 0.5 MG/2 ML NEBU NEB SCH ×2 (08:00→19:51)
[2019-12-23 08:09] LABS: ALBUMIN 2.5 g/dL (3.4-5.0); ALBUMIN/GLOBULIN RATIO 0.7 (1.0-1.7); CALCIUM 8.8 mg/dL (8.5-10.1); CREATININE 2.4 mg/dL (0.7-1.3); GFR 25.7; POTASSIUM 4.9 mmol/L (3.5-5.1); TOTAL BILIRUBIN 0.5 mg/dL (0.2-1.0); TOTAL PROTEIN 6.2 g/dL (6.4-8.2)
--- NOTE | 2019-12-23 08:19 | PDOC ---
Exam Note: En Note: This is a late entry for 12/21/2019. Currently, the unit is shutdown for any admissions and discharges as directed by the Centers for Disease Control (CDC) and the [facility] ([facility]) because of Coronavirus (COVID-19) exposure on the unit. S/O: This note covers elements not covered in my initial note. The patient was reviewed with nursing staff, reviewed the chart and TeleHealth Services provided for this date for the patient. Report was from JEFFERY Causey. He slept 7-1/2 hours. Behaviorally he has done reasonably well and previous night he was somewhat agitated, had to be in onesie. ROS: Ambulation impaired with walker. No CV, , Pulmonary, Eye system symptoms on review. MSE: Oriented to himself. Insight and judgment, recent and remote memory, attention and concentration, fund of knowledge is poor consistent with his diagnosis mentioned in my initial note. Labs: Reviewed. Imp: Unchanged from my initial note. Plan: No change from initial note. Assessment: Vital Signs/I&O: Vital Signs Date Time Temp Pulse Resp B/P (MAP) Pulse Ox O2 Delivery O2 Flow Rate FiO2 12/23/19 06:02 98.9 82 16 134/71 (92) 90 12/20/19 16:29 Room Air I & O 12/22/19 12/22/19 12/23/19 15:00 23:00 07:00 Intake Total 0 ml 700 ml Balance 0 ml 700 ml Labs: Laboratory Tests Test 12/23/19 06:39 12/23/19 06:42 White Blood Count 4.6 x10^3/uL (4.0-11.0) Red Blood Count 2.86 x10^6/uL (4.30-5.70) L Hemoglobin 9.8 g/dL (13.0-17.5) L Hematocrit 30.9 % (39.0-53.0) L Mean Corpuscular Volume 108 fL (79-100) H Mean Corpuscular Hemoglobin 34 pg (25-35) Mean Corpuscular Hemoglobin Concent 32 g/dL (31-37) Red Cell Distribution Width 17.3 % (11.5-14.5) H Platelet Count 136 x10^3/uL (140-400) L Neutrophils (%) (Auto) 52 % (31-73) Lymphocytes (%) (Auto) 37 % (24-48) Monocytes (%) (Auto) 10 % (0-9) H Eosinophils (%) (Auto) 1 % (0-3) Basophils (%) (Auto) 1 % (0-3) Neutrophils # (Auto) 2.4 x10^3uL (1.8-7.7) Lymphocytes # (Auto) 1.7 x10^3/uL (1.0-4.8) Monocytes # (Auto) 0.4 x10^3/uL (0.0-1.1) Eosinophils # (Auto) 0.0 x10^3/uL (0.0-0.7) Basophils # (Auto) 0.0 x10^3/uL (0.0-0.2) Influenza Type A (Rapid) Negative (NEGATIVE) Influenza Type B (Rapid) Negative (NEGATIVE) Group A Streptococcus Rapid Negative (NEGATIVE) Current Medications: I have reviewed the current psychotropics carefully including drug interactions. Risk benefit ratio favors no change other than as noted in my dictated progress note. Diagnosis: Problems: (1) Major neurocognitive disorder (2) Dementia with behavioral disturbance (3) Anxiety disorder (4) Dementia, vascular, with depression (5) Dementia, vascular, with delusions (6) Dementia in Alzheimer's disease with depression (7) Dementia in Alzheimer's disease with delusions (8) Impulse control disorder ELISABETH BACA MD Dec 23, 2019 08:19
[2019-12-23] MEDS: QUEtiapine 25 MG TABLET. PO SCH ×2 (08:26→16:01)
[2019-12-23] MEDS: POLYETHYLENE GLYCOL 3350 17 GM PACKET. PO SCH (08:26)
[2019-12-23] MEDS: CHOLECALCIFEROL (VITAMIN D3) 1,000 UNIT TABLET PO SCH (08:27)
[2019-12-23] MEDS: FUROSEMIDE 20 MG TABLET PO SCH (08:27)
[2019-12-23] MEDS: MULTIVITAMIN I-VITE TABLET. PO SCH ×2 (08:27→19:51)
[2019-12-23] MEDS: FOLIC ACID 1 MG TABLET PO SCH (08:28)
[2019-12-23] MEDS: SERTRALINE 100 MG TABLET. PO SCH (08:28)
[2019-12-23] MEDS: PANTOPRAZOLE 40 MG TABLET. PO SCH (08:28)
[2019-12-23] MEDS: DIVALPROEX 125 MG CAP.SPRINK PO SCH ×2 (08:28→16:01)
[2019-12-23] MEDS: ALLOPURINOL 300 MG TABLET. PO SCH (08:28)
[2019-12-23] MEDS: LACTOBACILLUS RHAMNOSUS GG 1 CAPSULE. PO SCH ×2 (08:30→19:51)
[2019-12-23] MEDS: ASPIRIN 81 MG TAB.CHEW PO SCH (08:31)
[2019-12-23] MEDS: METOPROLOL TART IMMED RELEASE 25 MG TABLET PO SCH ×2 (08:31→19:50)
[2019-12-23] MEDS: PRAMIPEXOLE 0.25 MG TABLET. PO SCH (08:31)
[2019-12-23] MEDS: CYANOCOBALAMIN (VITAMIN B-12) 100 MCG TABLET PO SCH (08:31)
[2019-12-23] MEDS: hydrOXYzine HCL 25 MG TABLET PO PRN ×2 (08:33→19:50)
--- NOTE | 2019-12-23 08:47 | PDOC ---
Exam Note: En Note: This is a late entry for 12/22/2019. Currently, the unit is shutdown for any admissions and discharges as directed by the Centers for Disease Control (CDC) and the [facility] ([facility]) because of Coronavirus (COVID-19) exposure on the unit. S/O: This note covers elements not covered in my initial note. The patient was reviewed with nursing staff, reviewed the chart and TeleHealth Services provided for this date for the patient. The patient was seen on a video- conferencing call coordinated with Jono GLI, nursing staff on the unit whose appropriately protected with personal protective equipment and mask on the unit. Report was from JEFFERY Causey. He refused his morning medications. Slept 5-3/4 hours. He was agitated in the afternoon, received Zyprexa at 4.30 p.m., then was much better. ROS: Ambulation impaired with walker. No CV, , Pulmonary, Eye system symptoms on review. MSE: Oriented to himself. Insight and judgment, recent and remote memory, attention and concentration, fund of knowledge is poor consistent with his di agnosis Labs: Reviewed. Imp: Major neurocognitive disorder Alzheimer, vascular with delusion, depression, behavioral disturbance. Plan: No change from initial note. Assessment: Vital Signs/I&O: Vital Signs Date Time Temp Pulse Resp B/P (MAP) Pulse Ox O2 Delivery O2 Flow Rate FiO2 12/23/19 08:31 82 134/71 12/23/19 06:02 98.9 16 90 12/20/19 16:29 Room Air I & O 12/22/19 12/22/19 12/23/19 15:00 23:00 07:00 Intake Total 0 ml 700 ml Balance 0 ml 700 ml Labs: Laboratory Tests Test 12/23/19 06:39 12/23/19 06:42 White Blood Count 4.6 x10^3/uL (4.0-11.0) Red Blood Count 2.86 x10^6/uL (4.30-5.70) L Hemoglobin 9.8 g/dL (13.0-17.5) L Hematocrit 30.9 % (39.0-53.0) L Mean Corpuscular Volume 108 fL (79-100) H Mean Corpuscular Hemoglobin 34 pg (25-35) Mean Corpuscular Hemoglobin Concent 32 g/dL (31-37) Red Cell Distribution Width 17.3 % (11.5-14.5) H Platelet Count 136 x10^3/uL (140-400) L Neutrophils (%) (Auto) 52 % (31-73) Lymphocytes (%) (Auto) 37 % (24-48) Monocytes (%) (Auto) 10 % (0-9) H Eosinophils (%) (Auto) 1 % (0-3) Basophils (%) (Auto) 1 % (0-3) Neutrophils # (Auto) 2.4 x10^3uL (1.8-7.7) Lymphocytes # (Auto) 1.7 x10^3/uL (1.0-4.8) Monocytes # (Auto) 0.4 x10^3/uL (0.0-1.1) Eosinophils # (Auto) 0.0 x10^3/uL (0.0-0.7) Basophils # (Auto) 0.0 x10^3/uL (0.0-0.2) Influenza Type A (Rapid) Negative (NEGATIVE) Influenza Type B (Rapid) Negative (NEGATIVE) Group A Streptococcus Rapid Negative (NEGATIVE) Current Medications: I have reviewed the current psychotropics carefully including drug interactions. Risk benefit ratio favors no change other than as noted in my dictated progress note. Diagnosis: Problems: (1) Major neurocognitive disorder (2) Dementia with behavioral disturbance (3) Anxiety disorder (4) Dementia, vascular, with depression (5) Dementia, vascular, with delusions (6) Dementia in Alzheimer's disease with depression (7) Dementia in Alzheimer's disease with delusions (8) Impulse control disorder ELISABETH BACA MD Dec 23, 2019 08:47
[2019-12-23 16:20] VITALS: BP 115/71
[2019-12-23] MEDS: PRAMIPEXOLE 0.5 MG TABLET. PO SCH (19:50)
[2019-12-23] MEDS: QUEtiapine 100 MG TABLET. PO SCH (19:50)
[2019-12-23] MEDS: MIRTAZAPINE 7.5 MG TABLET. PO SCH (19:50)
--- NOTE | 2019-12-23 23:09 | PDOC ---
Exam Note: En Note: S/O: This note covers elements not covered in my initial note. The patient was reviewed with nursing staff, reviewed the chart. Discussed with Blossom GIL. He has been on picking on scabs. ROS: Ambulation impaired with walker. No CV, , Pulmonary, Eye system symptoms on review. MSE: Oriented to himself. Insight and judgment, recent and remote memory, attention and concentration, fund of knowledge is poor consistent with his diagnosis Labs: Reviewed. Imp: Major neurocognitive disorder Alzheimer, vascular with delusion, depression, behavioral disturbance. Plan: No change from initial note. Assessment: Vital Signs/I&O: Vital Signs Date Time Temp Pulse Resp B/P (MAP) Pulse Ox O2 Delivery O2 Flow Rate FiO2 12/23/19 19:50 61 115/71 12/23/19 16:20 98.3 16 94 Room Air I & O 12/22/19 12/22/19 12/23/19 15:00 23:00 07:00 Intake Total 0 ml 700 ml Balance 0 ml 700 ml Labs: Laboratory Tests Test 12/23/19 06:39 12/23/19 06:42 White Blood Count 4.6 x10^3/uL (4.0-11.0) Red Blood Count 2.86 x10^6/uL (4.30-5.70) L Hemoglobin 9.8 g/dL (13.0-17.5) L Hematocrit 30.9 % (39.0-53.0) L Mean Corpuscular Volume 108 fL (79-100) H Mean Corpuscular Hemoglobin 34 pg (25-35) Mean Corpuscular Hemoglobin Concent 32 g/dL (31-37) Red Cell Distribution Width 17.3 % (11.5-14.5) H Platelet Count 136 x10^3/uL (140-400) L Neutrophils (%) (Auto) 52 % (31-73) Lymphocytes (%) (Auto) 37 % (24-48) Monocytes (%) (Auto) 10 % (0-9) H Eosinophils (%) (Auto) 1 % (0-3) Basophils (%) (Auto) 1 % (0-3) Neutrophils # (Auto) 2.4 x10^3uL (1.8-7.7) Lymphocytes # (Auto) 1.7 x10^3/uL (1.0-4.8) Monocytes # (Auto) 0.4 x10^3/uL (0.0-1.1) Eosinophils # (Auto) 0.0 x10^3/uL (0.0-0.7) Basophils # (Auto) 0.0 x10^3/uL (0.0-0.2) Sodium Level 154 mmol/L (136-145) H Potassium Level 4.9 mmol/L (3.5-5.1) Chloride Level 116 mmol/L (98-107) H Carbon Dioxide Level 31 mmol/L (21-32) Anion Gap 7 (6-14) Blood Urea Nitrogen 44 mg/dL (8-26) H Creatinine 2.4 mg/dL (0.7-1.3) H Estimated GFR (Cockcroft-Gault) 25.7 BUN/Creatinine Ratio 18 (6-20) Glucose Level 83 mg/dL (70-99) Calcium Level 8.8 mg/dL (8.5-10.1) Total Bilirubin 0.5 mg/dL (0.2-1.0) Aspartate Amino Transferase (AST) 29 U/L (15-37) Alanine Aminotransferase (ALT) 23 U/L (16-63) Alkaline Phosphatase 116 U/L (46-116) Total Protein 6.2 g/dL (6.4-8.2) L Albumin 2.5 g/dL (3.4-5.0) L Albumin/Globulin Ratio 0.7 (1.0-1.7) L Influenza Type A (Rapid) Negative (NEGATIVE) Influenza Type B (Rapid) Negative (NEGATIVE) Group A Streptococcus Rapid Negative (NEGATIVE) Current Medications: I have reviewed the current psychotropics carefully including drug interactions. Risk benefit ratio favors no change other than as noted in my dictated progress note. Diagnosis: Problems: (1) Major neurocognitive disorder (2) Dementia with behavioral disturbance (3) Anxiety disorder (4) Dementia, vascular, with depression (5) Dementia, vascular, with delusions (6) Dementia in Alzheimer's disease with depression (7) Dementia in Alzheimer's disease with delusions (8) Impulse control disorder ELISABETH BACA MD Dec 23, 2019 23:09
[2019-12-24] MEDS: traZODone 50 MG TABLET. PO PRN ×2 (00:11→01:56)
[2019-12-24 06:26] VITALS: BP 119/33
[2019-12-24] MEDS: BUDESONIDE 0.5 MG/2 ML NEBU NEB SCH ×2 (08:00→20:38)
[2019-12-24] MEDS: CHOLECALCIFEROL (VITAMIN D3) 1,000 UNIT TABLET PO SCH (08:35)
[2019-12-24] MEDS: DIVALPROEX 125 MG CAP.SPRINK PO SCH ×2 (08:35→16:19)
[2019-12-24] MEDS: METOPROLOL TART IMMED RELEASE 25 MG TABLET PO SCH ×2 (08:35→20:37)
[2019-12-24] MEDS: POLYETHYLENE GLYCOL 3350 17 GM PACKET. PO SCH (08:35)
[2019-12-24] MEDS: MULTIVITAMIN I-VITE TABLET. PO SCH ×2 (08:36→20:37)
[2019-12-24] MEDS: LACTOBACILLUS RHAMNOSUS GG 1 CAPSULE. PO SCH ×2 (08:36→20:37)
[2019-12-24] MEDS: QUEtiapine 25 MG TABLET. PO SCH ×2 (08:36→16:19)
[2019-12-24] MEDS: FUROSEMIDE 20 MG TABLET PO SCH (08:36)
[2019-12-24] MEDS: FOLIC ACID 1 MG TABLET PO SCH (08:37)
[2019-12-24] MEDS: ASPIRIN 81 MG TAB.CHEW PO SCH (08:37)
[2019-12-24] MEDS: PANTOPRAZOLE 40 MG TABLET. PO SCH (08:37)
[2019-12-24] MEDS: CYANOCOBALAMIN (VITAMIN B-12) 100 MCG TABLET PO SCH (08:38)
[2019-12-24] MEDS: SERTRALINE 100 MG TABLET. PO SCH (08:38)
[2019-12-24] MEDS: PRAMIPEXOLE 0.25 MG TABLET. PO SCH (08:38)
[2019-12-24] MEDS: ALLOPURINOL 300 MG TABLET. PO SCH (08:38)
[2019-12-24] MEDS: hydrOXYzine HCL 25 MG TABLET PO PRN ×2 (08:42→20:37)
--- NOTE | 2019-12-24 11:44 | TX PLAN ---
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 Additional Admission Comments: According to the intake, pt is hitting at staff, restless, agitated and confrontational. Pt is currently exhibiting manic behavior, violent, sundowning, exit seeking and sexually inappropriate, poor sleep and a safety concern. Problems Active Problems: Agitated Combative with staff Poor sleep Sexually inappropriate behavior Inactive Problems: Medication compliance Pt Strengths/Limitations Ability for [place]: Poor Cognitive Functioning/Ability: Poor Communication Skills/Ability: Fair Insight/Judgement: Poor Intellectual Ability: Poor Physical Health: Fair Social Skills: Poor Stability in Family: Good Stability in School/Work: Poor Verbal Skills: Fair Discharge Criteria Discharge Criteria: Adequate arrangements @DC, Improved behavior, Improved mood/thought Preliminary Discharge Plan Preliminary DC Plan: Current Living Arrange. Special Precautions Fall Risk: Low Initial D/C Plan Pt will plan to return to [facility] once stable. Identified Discharge Needs: Psychiatric Follow-up Currently Utilized Resources Currently Utilized Resources/P: Pt has a primary care physician Identified Problems/Hx/Goals Objectives/Short-Term Goals Short Term Goals: Dec. Outbursts, Improved Social Skills, Medication Stabilization, Promote Coping Skill Short Term Goals in Patient's: Medication and Behavioral Modification Interventions/Frequency Staff Interventions/Frequency&: Psychiatrist to assess pt at least 3x per week Library Circulation Clerk to assess pt at least 2x per week. Nursing to complete 15 minute checks daily. Encourage pt to participate in group activities. 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 Education: Pt did graduate high school and completed his degree a year early. Community Follow-up Community Provider/Family Inpu: This is a part of pt progression and just want to make sure that he can be stable before discharging back to placement. Treatment Plan Explained Patient/Parachute Officer had this treatment plan explained to him/her as indicated by the signature below and has been given the opportunity to ask questions and make suggestions: Date: Patient/Parachute Officer Signature: Status Update Update WEEKLY NOTE/UPDATE: Mj is averaging 25% of meal intakes and 5.5 hours of sleep at night. He is confused, wanders, and has periods of restlessness. Mj removes bandages and protective sleeves from his arms and picks at scabs. Nursing assists as needed to re-apply bandages and sleeves. Mj will be re- evaluated by Luna Chapman prior to discharge. Hospice evaluation will be completed and if Mj is appropriate for services, will be involved upon transition back to community. JORGE will assist with discharge planning once 14 day quarantine has been completed due to Covid-19 exposure. OSMIN SUAREZ Dec 24, 2019 11:44
[2019-12-24 16:21] VITALS: BP 111/73
[2019-12-24] MEDS: MIRTAZAPINE 7.5 MG TABLET. PO SCH (20:36)
[2019-12-24] MEDS: PRAMIPEXOLE 0.5 MG TABLET. PO SCH (20:36)
[2019-12-24] MEDS: QUEtiapine 100 MG TABLET. PO SCH (20:37)
--- NOTE | 2019-12-24 23:47 | PDOC ---
Exam Note: En Note: S/O: This note covers elements not covered in my initial note. Discussed the patient with nursing staff, reviewed the chart. In the morning, the patient had treatment team meeting with the entire team nursing staff, social service staff and myself and TeleHealth Services provided via audio-visual visit in the evening coordinated with Jono GIL. Average sleeping 5 hours. Appetite is fair. At treatment team meeting we addressed that he had been screened by hospice care, possibly accepted by them. He still pulls on his scabs but less anxious. ROS: Ambulation impaired with walker. No CV, , Pulmonary, Eye system symptoms on review. MSE: Oriented to himself. Insight and judgment, recent and remote memory, attention and concentration, fund of knowledge is poor consistent with his diagnosis. Labs: Reviewed. Imp: Major neurocognitive disorder Alzheimer, vascular with delusion, depression, behavioral disturbance. Plan: No change from initial note. Assessment: Vital Signs/I&O: Vital Signs Date Time Temp Pulse Resp B/P (MAP) Pulse Ox O2 Delivery O2 Flow Rate FiO2 12/24/19 20:37 94 111/73 12/24/19 16:21 97.5 19 95 Room Air I & O 12/23/19 12/23/19 12/24/19 15:00 23:00 07:00 Intake Total 120 ml 0 ml Balance 120 ml 0 ml Current Medications: I have reviewed the current psychotropics carefully including drug interactions. Risk benefit ratio favors no change other than as noted in my dictated progress note. Diagnosis: Problems: (1) Major neurocognitive disorder (2) Dementia with behavioral disturbance (3) Anxiety disorder (4) Dementia, vascular, with depression (5) Dementia, vascular, with delusions (6) Dementia in Alzheimer's disease with depression (7) Dementia in Alzheimer's disease with delusions (8) Impulse control disorder ELISABETH BACA MD Dec 24, 2019 23:47
[2019-12-25 05:45] VITALS: BP 156/67
[2019-12-25] MEDS: BUDESONIDE 0.5 MG/2 ML NEBU NEB SCH ×2 (08:00→20:12)
[2019-12-25] MEDS: POLYETHYLENE GLYCOL 3350 17 GM PACKET. PO SCH (08:31)
[2019-12-25] MEDS: CYANOCOBALAMIN (VITAMIN B-12) 100 MCG TABLET PO SCH (08:31)
[2019-12-25] MEDS: ASPIRIN 81 MG TAB.CHEW PO SCH (08:31)
[2019-12-25] MEDS: DIVALPROEX 125 MG CAP.SPRINK PO SCH ×2 (08:32→17:00)
[2019-12-25] MEDS: PANTOPRAZOLE 40 MG TABLET. PO SCH (08:33)
[2019-12-25] MEDS: METOPROLOL TART IMMED RELEASE 25 MG TABLET PO SCH ×2 (08:33→20:12)
[2019-12-25] MEDS: QUEtiapine 25 MG TABLET. PO SCH ×2 (08:33→17:00)
[2019-12-25] MEDS: SERTRALINE 100 MG TABLET. PO SCH (08:33)
[2019-12-25] MEDS: MULTIVITAMIN I-VITE TABLET. PO SCH ×2 (08:34→20:12)
[2019-12-25] MEDS: FOLIC ACID 1 MG TABLET PO SCH (08:34)
[2019-12-25] MEDS: LACTOBACILLUS RHAMNOSUS GG 1 CAPSULE. PO SCH ×2 (08:34→20:12)
[2019-12-25] MEDS: CHOLECALCIFEROL (VITAMIN D3) 1,000 UNIT TABLET PO SCH (08:34)
[2019-12-25] MEDS: FUROSEMIDE 20 MG TABLET PO SCH (08:34)
[2019-12-25] MEDS: PRAMIPEXOLE 0.25 MG TABLET. PO SCH (08:34)
[2019-12-25] MEDS: ALLOPURINOL 300 MG TABLET. PO SCH (08:34)
[2019-12-25 15:55] VITALS: BP 114/53
[2019-12-25] MEDS: MIRTAZAPINE 7.5 MG TABLET. PO SCH (20:10)
[2019-12-25] MEDS: QUEtiapine 100 MG TABLET. PO SCH (20:10)
[2019-12-25] MEDS: PRAMIPEXOLE 0.5 MG TABLET. PO SCH (20:11)
[2019-12-26 06:08] VITALS: BP 114/76
[2019-12-26] MEDS: POLYETHYLENE GLYCOL 3350 17 GM PACKET. PO SCH (08:42)
[2019-12-26 08:43] VITALS: BP 114/76
[2019-12-26] MEDS: FUROSEMIDE 20 MG TABLET PO SCH (08:43)
[2019-12-26] MEDS: DIVALPROEX 125 MG CAP.SPRINK PO SCH (08:43)
[2019-12-26] MEDS: METOPROLOL TART IMMED RELEASE 25 MG TABLET PO SCH (08:43)
[2019-12-26] MEDS: LACTOBACILLUS RHAMNOSUS GG 1 CAPSULE. PO SCH (08:43)
[2019-12-26] MEDS: MULTIVITAMIN I-VITE TABLET. PO SCH (08:43)
[2019-12-26] MEDS: CYANOCOBALAMIN (VITAMIN B-12) 100 MCG TABLET PO SCH (08:43)
[2019-12-26] MEDS: PANTOPRAZOLE 40 MG TABLET. PO SCH (08:43)
[2019-12-26] MEDS: FOLIC ACID 1 MG TABLET PO SCH (08:43)
[2019-12-26] MEDS: SERTRALINE 100 MG TABLET. PO SCH (08:44)
[2019-12-26] MEDS: PRAMIPEXOLE 0.25 MG TABLET. PO SCH (08:44)
[2019-12-26] MEDS: ASPIRIN 81 MG TAB.CHEW PO SCH (08:44)
[2019-12-26] MEDS: QUEtiapine 25 MG TABLET. PO SCH (08:44)
[2019-12-26] MEDS: CHOLECALCIFEROL (VITAMIN D3) 1,000 UNIT TABLET PO SCH (08:44)
[2019-12-26] MEDS: ALLOPURINOL 300 MG TABLET. PO SCH (08:44)
[2019-12-26] MEDS ORDERED: DIVA125C2 PO (12:56)
[2019-12-26] MEDS ORDERED: ACET325T21 PO (12:56)
[2019-12-26] MEDS ORDERED: MAG355OR12 PO (12:59)
[2019-12-26] MEDS ORDERED: MAGN24003 PO (13:00)
[2019-12-26] MEDS ORDERED: MENT113G6 TP (13:02)
[2019-12-26] MEDS ORDERED: MIRT7.5T8 PO (13:03)
[2019-12-26 13:04] LABS: BASO % 0 % (0-3); EOS % 0 % (0-3); HEMATOCRIT 31.3 % (39.0-53.0); HEMOGLOBIN 10.1 g/dL (13.0-17.5); LYMPH # 0.2 x10^3/uL (1.0-4.8); LYMPH % 4 % (24-48); MEAN CORPUSCULAR HEMOGLOBIN 34 pg (25-35); MEAN CORPUSCULAR HGB CONC 32 g/dL (31-37); MEAN CORPUSCULAR VOLUME 106 fL (79-100); MONO # 0.1 x10^3/uL (0.0-1.1); MONO % 3 % (0-9); NEUT # 4.2 x10^3uL (1.8-7.7); NEUT % 93 % (31-73); PLATELET COUNT 102 x10^3/uL (140-400); RED BLOOD COUNT 2.96 x10^6/uL (4.30-5.70); RED CELL DISTRIBUTION WIDTH 17.3 % (11.5-14.5); WHITE BLOOD COUNT 4.6 x10^3/uL (4.0-11.0)
[2019-12-26] MEDS ORDERED: OLAN5TAB9 PO (13:04)
[2019-12-26] MEDS ORDERED: PANT40TA3 PO (13:05)
[2019-12-26] MEDS ORDERED: PRAM0.255 PO ×2 (13:05→13:06)
[2019-12-26] MEDS ORDERED: HYDR25TA PO (13:07)
[2019-12-26] MEDS ORDERED: TRAZ-120 PO (13:07)
[2019-12-26 13:14] LABS: CALCIUM 8.7 mg/dL (8.5-10.1); CREATININE 2.7 mg/dL (0.7-1.3); GFR 22.5; POTASSIUM 4.1 mmol/L (3.5-5.1)
[2019-12-26 13:20] LABS: ALBUMIN 2.1 g/dL (3.4-5.0)
[2019-12-26 13:21] LABS: ALBUMIN/GLOBULIN RATIO 0.5 (1.0-1.7); TOTAL BILIRUBIN 0.6 mg/dL (0.2-1.0)
[2019-12-26 14:59] LABS: % ATYL 1 % (0-0); % BANDS 26 % (0-9); % BASOS 1 % (0-3); % LYMPHS 2 % (24-48); % MONOS 2 % (0-10); % SEGS 68 % (35-66)
[2019-12-26 15:00] LABS: PLT ESTIMATE DECREASED (ADEQUATE)
--- NOTE | 2019-12-27 07:59 | PDOC ---
Exam Note: En Note: S/O: This note is a late entry for DOS 12/25/2019 covers elements not covered in my initial note. Discussed the patient with nursing staff, reviewed the chart. Discussed with Alexa GIL. Patients creatinine is 2.4. He has been intermittently incontinent, somewhat anxious restless. I met with the patient on the videoconference call in the evening coordinated by Jono GIL. ROS: No CV, , Pulmonary, Eye system symptoms on review. reliability poor, gait unsteady with walker. MSE: Oriented to himself. Insight and judgment, recent and remote memory, attention and concentration, fund of knowledge is poor consistent with his diagnosis. Labs: Reviewed. Imp: Major neurocognitive disorder Alzheimer, vascular with delusion, depression, behavioral disturbance. Plan: No change from initial note. Defer medical management to Dr. Roy. Assessment: Vital Signs/I&O: Vital Signs Date Time Temp Pulse Resp B/P (MAP) Pulse Ox O2 Delivery O2 Flow Rate FiO2 12/26/19 08:43 74 114/76 12/26/19 06:08 97.9 24 87 Room Air I & O 12/26/19 12/26/19 12/27/19 15:00 23:00 07:00 Intake Total 240 ml Balance 240 ml Labs: Laboratory Tests Test 12/26/19 12:50 12/26/19 16:30 White Blood Count 4.6 x10^3/uL (4.0-11.0) Red Blood Count 2.96 x10^6/uL (4.30-5.70) L Hemoglobin 10.1 g/dL (13.0-17.5) L Hematocrit 31.3 % (39.0-53.0) L Mean Corpuscular Volume 106 fL (79-100) H Mean Corpuscular Hemoglobin 34 pg (25-35) Mean Corpuscular Hemoglobin Concent 32 g/dL (31-37) Red Cell Distribution Width 17.3 % (11.5-14.5) H Platelet Count 102 x10^3/uL (140-400) L Neutrophils (%) (Auto) 93 % (31-73) H Lymphocytes (%) (Auto) 4 % (24-48) L Monocytes (%) (Auto) 3 % (0-9) Eosinophils (%) (Auto) 0 % (0-3) Basophils (%) (Auto) 0 % (0-3) Neutrophils # (Auto) 4.2 x10^3uL (1.8-7.7) Lymphocytes # (Auto) 0.2 x10^3/uL (1.0-4.8) L Monocytes # (Auto) 0.1 x10^3/uL (0.0-1.1) Eosinophils # (Auto) 0.0 x10^3/uL (0.0-0.7) Basophils # (Auto) 0.0 x10^3/uL (0.0-0.2) Segmented Neutrophils % 68 % (35-66) H Band Neutrophils % 26 % (0-9) H Lymphocytes % 2 % (24-48) L Atypical Lymphocytes % (Manual) 1 % (0-0) H Monocytes % 2 % (0-10) Basophils % 1 % (0-3) Platelet Estimate Decreased (ADEQUATE) Prothrombin Time 11.4 SEC (9.4-11.4) Prothrombin Time INR 1.1 (0.9-1.1) Activated Partial Thromboplast Time 30 SEC (23-33) D-Dimer (Teri) 2.57 mg/L (0.00-0.50) H Sodium Level 151 mmol/L (136-145) H Potassium Level 4.1 mmol/L (3.5-5.1) Chloride Level 113 mmol/L (98-107) H Carbon Dioxide Level 29 mmol/L (21-32) Anion Gap 9 (6-14) Blood Urea Nitrogen 67 mg/dL (8-26) H Creatinine 2.7 mg/dL (0.7-1.3) H Estimated GFR (Cockcroft-Gault) 22.5 BUN/Creatinine Ratio 25 (6-20) H Glucose Level 95 mg/dL (70-99) Lactic Acid Level 3.4 mmol/L (0.4-2.0) H 2.8 mmol/L (0.4-2.0) H Calcium Level 8.7 mg/dL (8.5-10.1) Total Bilirubin 0.6 mg/dL (0.2-1.0) Aspartate Amino Transferase (AST) 36 U/L (15-37) Alanine Aminotransferase (ALT) 24 U/L (16-63) Alkaline Phosphatase 132 U/L (46-116) H Total Protein 6.0 g/dL (6.4-8.2) L Albumin 2.1 g/dL (3.4-5.0) L Albumin/Globulin Ratio 0.5 (1.0-1.7) L Current Medications: I have reviewed the current psychotropics carefully including drug interactions. Risk benefit ratio favors no change other than as noted in my dictated progress note. Diagnosis: Problems: (1) Major neurocognitive disorder (2) Anxiety disorder (3) Dementia, vascular, with depression (4) Dementia, vascular, with delusions (5) Dementia in Alzheimer's disease with depression (6) Dementia in Alzheimer's disease with delusions (7) Impulse control disorder ELISABETH BACA MD Dec 27, 2019 07:59
--- NOTE | 2019-12-27 08:23 | PDOC ---
Exam Note: En Note: RE: Mj Diamond DOS: 12/26/2019 S/O: This note is a late entry for DOS 12/26/2019 covers elements not covered in my initial note. Discussed the patient with nursing staff, reviewed the chart. Met with the patient audio-visually coordinated by Erinn GIL. ROS: Ambulation impaired with walker. No CV, , Pulmonary, Eye system symptoms on review. MSE: Oriented to himself. Insight and judgment, recent and remote memory, attention and concentration, fund of knowledge is poor consistent with his diagnosis. Labs: Reviewed. Imp: Major neurocognitive disorder Alzheimer, vascular with delusion, depression, behavioral disturbance. Plan: No change from initial note. Assessment: Vital Signs/I&O: Vital Signs Date Time Temp Pulse Resp B/P (MAP) Pulse Ox O2 Delivery O2 Flow Rate FiO2 12/26/19 08:43 74 114/76 12/26/19 06:08 97.9 24 87 Room Air I & O 12/26/19 12/26/19 12/27/19 15:00 23:00 07:00 Intake Total 240 ml Balance 240 ml Labs: Laboratory Tests Test 12/26/19 12:50 12/26/19 16:30 White Blood Count 4.6 x10^3/uL (4.0-11.0) Red Blood Count 2.96 x10^6/uL (4.30-5.70) L Hemoglobin 10.1 g/dL (13.0-17.5) L Hematocrit 31.3 % (39.0-53.0) L Mean Corpuscular Volume 106 fL (79-100) H Mean Corpuscular Hemoglobin 34 pg (25-35) Mean Corpuscular Hemoglobin Concent 32 g/dL (31-37) Red Cell Distribution Width 17.3 % (11.5-14.5) H Platelet Count 102 x10^3/uL (140-400) L Neutrophils (%) (Auto) 93 % (31-73) H Lymphocytes (%) (Auto) 4 % (24-48) L Monocytes (%) (Auto) 3 % (0-9) Eosinophils (%) (Auto) 0 % (0-3) Basophils (%) (Auto) 0 % (0-3) Neutrophils # (Auto) 4.2 x10^3uL (1.8-7.7) Lymphocytes # (Auto) 0.2 x10^3/uL (1.0-4.8) L Monocytes # (Auto) 0.1 x10^3/uL (0.0-1.1) Eosinophils # (Auto) 0.0 x10^3/uL (0.0-0.7) Basophils # (Auto) 0.0 x10^3/uL (0.0-0.2) Segmented Neutrophils % 68 % (35-66) H Band Neutrophils % 26 % (0-9) H Lymphocytes % 2 % (24-48) L Atypical Lymphocytes % (Manual) 1 % (0-0) H Monocytes % 2 % (0-10) Basophils % 1 % (0-3) Platelet Estimate Decreased (ADEQUATE) Prothrombin Time 11.4 SEC (9.4-11.4) Prothrombin Time INR 1.1 (0.9-1.1) Activated Partial Thromboplast Time 30 SEC (23-33) D-Dimer (Teri) 2.57 mg/L (0.00-0.50) H Sodium Level 151 mmol/L (136-145) H Potassium Level 4.1 mmol/L (3.5-5.1) Chloride Level 113 mmol/L (98-107) H Carbon Dioxide Level 29 mmol/L (21-32) Anion Gap 9 (6-14) Blood Urea Nitrogen 67 mg/dL (8-26) H Creatinine 2.7 mg/dL (0.7-1.3) H Estimated GFR (Cockcroft-Gault) 22.5 BUN/Creatinine Ratio 25 (6-20) H Glucose Level 95 mg/dL (70-99) Lactic Acid Level 3.4 mmol/L (0.4-2.0) H 2.8 mmol/L (0.4-2.0) H Calcium Level 8.7 mg/dL (8.5-10.1) Total Bilirubin 0.6 mg/dL (0.2-1.0) Aspartate Amino Transferase (AST) 36 U/L (15-37) Alanine Aminotransferase (ALT) 24 U/L (16-63) Alkaline Phosphatase 132 U/L (46-116) H Total Protein 6.0 g/dL (6.4-8.2) L Albumin 2.1 g/dL (3.4-5.0) L Albumin/Globulin Ratio 0.5 (1.0-1.7) L Current Medications: I have reviewed the current psychotropics carefully including drug interactions. Risk benefit ratio favors no change other than as noted in my dictated progress note. Diagnosis: Problems: (1) Major neurocognitive disorder (2) Anxiety disorder (3) Dementia, vascular, with depression (4) Dementia, vascular, with delusions (5) Dementia in Alzheimer's disease with depression (6) Dementia in Alzheimer's disease with delusions (7) Impulse control disorder ELISABETH BACA MD Dec 27, 2019 08:23
--- NOTE | 2019-12-27 20:44 | DS ---
DATE OF DISCHARGE: 12/26/2019 DISCHARGE SUMMARY/PSYCHIATRIC PROGRESS NOTE This late entry 12/26/2019 covers elements not covered in my initial note. REASON FOR ADMISSION: Please refer to the admission history for details. Briefly, the patient is an 89-year-old male referred to us from [facility] on account of increased confusion, restlessness and agitation. He has been confrontational, was violent and hitting staff. He appeared manic. Has some sundowning, exit seeking, sexually inappropriate with marked sleep and was deemed a potential danger to himself and others around him. He had failed outpatient psychiatric interventions resulting in this referral. SIGNIFICANT FINDINGS AND CLINICAL COURSE: Following admission, the patient was seen daily individually by myself from a psychiatric standpoint, medical followup with Dr. Roy. The patient was initially quite agitated, restless, labile in his mood, very confused. Ambulation impaired with walker. Adjustments were made in his psychotropics and from a psychiatric standpoint, he seemed to be doing better on a combination of Seroquel 37.5 mg a.m., 50 mg at 1700, 100 mg at bedtime; Zoloft 100 mg a day, hydroxyzine 25 mg 3 times a day p.r.n. anxiety, Zyprexa p.r.n., trazodone 50 mg at bedtime p.r.n., may repeat x 1; Remeron 7.5 mg at bedtime, Depakote 375 mg b.i.d. at 9:00 a.m. and 5:00 p.m. He remained confused, has been screened by hospice and accepted by them prior to his discharge; however, his discharge had to be postponed because the unit was exposed to COVID-19 infection by a staff member and no one could be discharge or admitted for 14 days per [facility] in [facility] and Environment. Psychiatrically, he did reasonably well, but medically was deteriorating and getting increasingly more confused, dehydrated, creatinine had increased to 2.4, transferred to the Medical/Surgical floor per Dr. Roy. REVIEW OF SYSTEMS: Prior to discharge on 12/26/2019, ambulation impaired. No CV, , pulmonary, eye system symptoms on review. MENTAL STATUS EXAM: Oriented to himself. Insight, judgment, recent and remote memory, attention, concentration, fund of knowledge poor, consistent with his diagnosis. FINAL DIAGNOSES: Major neurocognitive disorder, Alzheimer, vascular with delusion, depression, behavioral disturbance; anxiety disorder, unspecified; impulse control disorder, unspecified; dehydration and general medical deterioration. Rest unchanged from admission. DISCHARGE MEDICATIONS: Please refer to the MRAD. DISCHARGE INSTRUCTIONS: Psychiatric and medical followup to the medical/surgical floor per Dr. Roy. Time for discharge day management greater than 30 minutes. ELISABETH BACA MD DR: CAMPOS/rosenda JOB#: [id number] / [id number]
== END 2019-12-26 12:31 | disposition short-term general hospital (02) | DRG 57 ==
LOC: ER 18:45 → GEROPSY 22:05
PROVIDERS: ADMIT Psychiatry & Neurology Psychiatry; ATTEND Psychiatry & Neurology Psychiatry
DX: G30.9 Alzheimer's disease, unspecified (principal); F01.51 Vascular dementia, unspecified severity, with behavioral disturbance; F02.81 Dementia in other diseases classified elsewhere, unspecified severity, with behavioral disturbance; F05 Delirium due to known physiological condition; I13.0 Hypertensive heart and chronic kidney disease with heart failure and stage 1 through stage 4 chronic kidney disease, or unspecified chronic kidney disease; J98.11 Atelectasis; L03.119 Cellulitis of unspecified part of limb; F25.0 Schizoaffective disorder, bipolar type; F63.9 Impulse disorder, unspecified; F41.0 Panic disorder [episodic paroxysmal anxiety]; D64.9 Anemia, unspecified; E11.22 Type 2 diabetes mellitus with diabetic chronic kidney disease; E78.5 Hyperlipidemia, unspecified; E86.0 Dehydration; F41.1 Generalized anxiety disorder; G47.33 Obstructive sleep apnea (adult) (pediatric); G93.89 Other specified disorders of brain; I25.10 Atherosclerotic heart disease of native coronary artery without angina pectoris; I50.9 Heart failure, unspecified; I48.91 Unspecified atrial fibrillation; J44.9 Chronic obstructive pulmonary disease, unspecified; M10.9 Gout, unspecified; N18.9 Chronic kidney disease, unspecified; Z66 Do not resuscitate; Z95.0 Presence of cardiac pacemaker; K21.9 Gastro-esophageal reflux disease without esophagitis; M19.90 Unspecified osteoarthritis, unspecified site
CPT/HCPCS: 36415; 70450; 71045; 80048; 80053; 80061; 80076; 80164; 80307; 81001; 82140; 82306; 82550; 82607; 83036; 83540; 83550; 83605; 83690; 83735; 83880; 84436; 84443; 84480; 84484; 85007; 85025; 85379; 85610; 85651; 85730; 86592; 87070; 87804; 87880; 93005; 94640; 99285; J7626; 97116; 97530; 97535

== ENCOUNTER 2019-12-26 12:31 | Inpatient (IN) | payer MEDICARE, BC ==
[~2019-12-26] VITALS: Ht 175.3 cm; Wt 69.5 kg
[2019-12-26] VITALS (12 sets, daily range): BP systolic 53–85; BP diastolic 26–43
[~2019-12-26 12:31] MED LIST: ALBU2.5V14 NEB; ALLO300T PO; ASPI-630 PO; BISA10SU4 RC; BUDE10.22 IH; CARB1DRO9 OP; CHOL200078 PO; CYAN100T2 PO; FOLI0.8T2 PO; FURO-69 PO; HYDR25TA PO; LORA-254 PO; LOSA25TA11 PO; METO25TA4 PO; OMEP20CA16 PO; POLY15DR27 EACHEYE; POLY17PO5 PO; QUET100T4 PO; QUET50TA5 PO; SERT100T8 PO; VIT1TABL34 PO
[2019-12-26] MEDS ORDERED: ACET325T21 PO (12:56)
[2019-12-26] MEDS ORDERED: DIVA125C2 PO (12:56)
[2019-12-26] MEDS ORDERED: MAG355OR12 PO (12:59)
[2019-12-26] MEDS ORDERED: MAGN24003 PO (13:00)
[2019-12-26] MEDS ORDERED: MENT113G6 TP (13:02)
[2019-12-26] MEDS ORDERED: MIRT7.5T8 PO (13:03)
[2019-12-26] MEDS ORDERED: OLAN5TAB9 PO (13:04)
[2019-12-26] MEDS ORDERED: PANT40TA3 PO (13:05)
[2019-12-26] MEDS ORDERED: PRAM0.255 PO ×2 (13:05→13:06)
[2019-12-26] MEDS ORDERED: TRAZ-120 PO (13:07)
[2019-12-26] MEDS ORDERED: HYDR25TA PO (13:07)
[2019-12-26] MEDS ORDERED: IV NORMAL SALINE 1,000ML 1,000 ML IV ONE (13:30)
--- NOTE | 2019-12-26 14:17 | RAD ---
CHEST AP ONLY History: Rapid response Comparison: December 23, 2019 Findings: Single view of the chest is submitted. There is again left electronic cardiac device. There again has been a median sternotomy. There is new airspace opacity of the mid to inferior left hemithorax, mild increased interstitial opacity at the right lung base. No pneumothorax is identified. Pericardial cardiac silhouette is unchanged. There is again tortuous thoracic aorta. Impression: 1. There is now airspace opacity of the mid to inferior left hemithorax which may be atelectasis or infiltrate, also right base interstitial opacity which may be edema. Electronically signed by: Qamar Cervantes MD (12/26/2019 2:13 PM) [facility]
[2019-12-26] MEDS ORDERED: IV DEXTROSE 5 %-0.2 % NACL 1,000 ML IV SCH ×2 (16:30→20:15)
[2019-12-26] MEDS ORDERED: PIPERACILLIN/TAZOBACTAM 2.25 GM in IV NORMAL SALINE 50ML 50 ML IV SCH (17:00)
[2019-12-26 17:10] LABS: CALCIUM 8.4 mg/dL (8.5-10.1); CREATININE 2.6 mg/dL (0.7-1.3); GFR 23.5; POTASSIUM 3.9 mmol/L (3.5-5.1)
--- NOTE | 2019-12-26 17:43 | HP ---
ADMIT DATE: 12/26/2019 HISTORY OF PRESENT ILLNESS: The patient is an 89-year-old male patient who was transferred from [facility] on account of shortness of breath, hypoxia, hypotension. He was also found to have elevated lactic acid at 3.4 and D-dimer was high also at 2.57. He is requiring 100% nonrebreather mask. When he arrived to the ICU, his blood pressure was 70/40 and therefore we infused 1 liter of normal saline despite the fact that he has marked hypernatremia; however, the patient continued to be extremely tachypneic, hypoxic. His oxygen drops down to the 70s when he takes off his Venturi mask. We did a chest x-ray that showed there is now airspace opacity with mid to inferior left hemithorax, which may be atelectasis or infiltrate, also right base interstitial opacity, which may be edema. His white cell count was normal at 4600. His chemistry showed serum sodium 151, BUN of 67, creatinine 2.7. He will be resuscitated with IV fluid and eventually we will start him on D5W to correct his hypernatremia and we will also start him on IV antibiotic. PAST MEDICAL HISTORY: Significant for atrial fibrillation, hypertension, hyperlipidemia, type 2 diabetes mellitus, chronic obstructive pulmonary disease, chronic kidney disease, congestive heart failure, obstructive sleep apnea as well as gout. PAST SURGICAL HISTORY: Significant for permanent pacemaker placement and coronary artery bypass graft surgery. PAST PSYCHIATRIC HISTORY: Significant for dementia, vascular; Alzheimer's with delirium; delusion; depression; anxiety as well as impulse control disorder. ALLERGIES: He has no known drug allergies. FAMILY HISTORY: Noncontributory. SOCIAL HISTORY: The patient is a resident at [facility]. No further information available. His daughter is his DPOA. MEDICATIONS: He is currently on following medications: He is on artificial tears 1 drop to both eyes twice a day, lactobacillus rhamnosus 1 capsule twice a day, divalproex sodium 375 mg twice a day, olanzapine 2.5 mg q. 12 hourly, Seroquel 50 mg with supper, Seroquel 37.5 mg p.o. daily, mirtazapine 7.5 mg at bedtime, Mirapex 0.25 mg daily, trazodone 50 mg at bedtime, Mirapex 0.5 mg at bedtime, multivitamin with mineral 1 tablet twice a day, folic acid 1 mg daily, vitamin D 2000 International Units once a day, sertraline 100 mg daily, polyethylene glycol 17 grams daily, metoprolol 12.5 mg twice a day, furosemide 20 mg daily, cyanocobalamin 1000 mcg once a day, aspirin 81 mg once a day, allopurinol 300 mg once a day, Pulmicort 0.5 mg twice a day, Protonix 40 mg daily, albuterol sulfate 2.5 mg by nebulizer every 4 hours, quetiapine fumarate 100 mg at bedtime, hydroxyzine 25 mg 3 times a day, bisacodyl 10 mg suppository rectally daily p.r.n. for constipation. He is on magnesium hydroxide 30 mL p.o. daily p.r.n. for constipation and Mylanta 15 mL after meals and bedtime, acetaminophen 650 mg every 6 hours. PHYSICAL EXAMINATION: GENERAL: On arrival to the Emergency Room, the patient was pale, extremely cachectic, but there was no jaundice, cyanosis or thyromegaly. No jugular venous distention. No lower limb edema. VITAL SIGNS: His heart rate was 76, blood pressure was 70/36, temperature was 97.9, respiratory rate was 36 and oxygen saturation was 90% on 15 liters by nonrebreather mask. HEAD, EYES, EARS, NOSE AND THROAT: Showed normocephalic, atraumatic. NECK: Supple. HEART: Showed normal first and second heart sounds. No gallop, rub or murmur. CHEST: Shows central trachea, equal bilateral expansion, air entry, vesicular sounds. No crepitation or rhonchi. ABDOMEN: Distended, soft, nontender. NEUROLOGIC: He is demented, but without any obvious lateralizing sign. EXTREMITIES: He moves extremities spontaneously. LABORATORY DATA: This morning showed white cell count 4600, hemoglobin was 10, hematocrit 31, MCV 106 and platelet count of 102,000 with normal manual differential. His chemistry showed serum sodium 151, potassium 4.1, chloride 113, bicarbonate 29, anion gap of 9, BUN 67, creatinine was 2.7, estimated GFR was 22 mL per minute, glucose was 95, lactic acid was 3.4. His calcium was 8.7. His total bilirubin, AST, ALT were normal. Alkaline phosphatase slightly elevated. His ammonia was less than 10. His total protein was 6.6 g/dL, albumin was 2.1. His vitamin B12 was 1380, 25-hydroxy vitamin D was normal. TSH was normal. His total T4 is low and total T3 is low also at 65. His chest x-ray showed that there is again left electronic cardiac device. There again has been a median sternotomy. There is now airspace opacity in the mid to inferior left hemithorax, mild increased interstitial opacity at the right lung base. No pneumothorax identified. Pericardial cardiac silhouette is unchanged. There is again tortuous thoracic aorta. PLAN: He was given 1 liter of normal saline. I will start him on IV fluid, IV antibiotic for healthcare-associated pneumonia as well as continue with D5W to correct his hypernatremia and we will decide the further management accordingly. LARISSA ROMERO MD DR: PONCE/rosenda JOB#: [id number] / [id number]
[2019-12-26] MEDS ORDERED: NACL IV ONE (18:15)
[2019-12-26] MEDS ORDERED: DEXTROSE IV ONE (18:15)
[2019-12-26] MEDS ORDERED: MORPHINE SULFATE 2 MG/ML DISP.SYRIN. IV ONE (20:15)
[2019-12-26] MEDS ORDERED: MORPHINE SULFATE 4 MG/ML DISP.SYRIN. IV PRN (21:30)
[2019-12-26] MEDS ORDERED: ACETAMINOPHEN 650 MG SUPP.RECT. PR PRN (21:30)
[2019-12-26] MEDS ORDERED: SCOPOLAMINE 1.5MG PATCH. TD PRN (21:45)
[2019-12-26] MEDS: MORPHINE SULFATE 2 MG/ML DISP.SYRIN. IV PRN (22:15)
[2019-12-27] VITALS (10 sets, daily range): BP systolic 30–81; BP diastolic 14–36
[2019-12-27] MEDS: MORPHINE SULFATE 2 MG/ML DISP.SYRIN. IV PRN ×2 (00:50→07:56)
== END 2019-12-26 20:45 | disposition hospice, inpatient (51) | DRG 177 ==
LOC: ICU 12:31
PROVIDERS: ADMIT Internal Medicine; ATTEND Internal Medicine
DX: J15.6 Pneumonia due to other Gram-negative bacteria (principal); J96.20 Acute and chronic respiratory failure, unspecified whether with hypoxia or hypercapnia; E87.0 Hyperosmolality and hypernatremia; I13.0 Hypertensive heart and chronic kidney disease with heart failure and stage 1 through stage 4 chronic kidney disease, or unspecified chronic kidney disease; J15.9 Unspecified bacterial pneumonia; E11.22 Type 2 diabetes mellitus with diabetic chronic kidney disease; E78.5 Hyperlipidemia, unspecified; F01.50 Vascular dementia, unspecified severity, without behavioral disturbance, psychotic disturbance, mood disturbance, and anxiety; F02.80 Dementia in other diseases classified elsewhere, unspecified severity, without behavioral disturbance, psychotic disturbance, mood disturbance, and anxiety; G30.9 Alzheimer's disease, unspecified; I48.91 Unspecified atrial fibrillation; I50.9 Heart failure, unspecified; J44.9 Chronic obstructive pulmonary disease, unspecified; N18.9 Chronic kidney disease, unspecified; R09.02 Hypoxemia; F41.8 Other specified anxiety disorders; M10.9 Gout, unspecified; Z95.0 Presence of cardiac pacemaker; Z95.1 Presence of aortocoronary bypass graft; Y95 Nosocomial condition
CPT/HCPCS: 36415; 71045; 80048; 83605; 84484; J2020; J2060; J2270; J2543; J7030

== ENCOUNTER 2019-12-26 20:46 | Inpatient (IN) | payer BC, MEDICARE, OTHER ==
--- NOTE | 2019-12-26 20:45 | NUR ---
pt admitted to inpatient hospice, ICU-3. [facility]. Verbal consent obtained from pt's daughter Belem Diamond, ROSANGELAOA. Dr. Roy had discussed pt's condition.
[~2019-12-26 20:46] MED LIST changes: +ACET325T21 PO; +DIVA125C2 PO; +MAG355OR12 PO; +MAGN24003 PO; +MENT113G6 TP; +MIRT7.5T8 PO; +OLAN5TAB9 PO; +PANT40TA3 PO; +PRAM0.255 PO; +TRAZ-120 PO
[2019-12-27 11:54] VITALS: BP 30/14
--- NOTE | 2019-12-27 14:30 | NUR ---
[facility] has left the building with patient. Pt being discharged out of the system.
--- NOTE | 2019-12-28 14:43 | SSS ---
ADMIT DATE: 12/27/2019 HISTORY OF PRESENT ILLNESS: The patient is an 89-year-old male patient who was transferred from [facility] with hypoxia, hypotension and shortness of breath. He was found to have markedly elevated lactic acid of 3.4. D-dimer was high at 2.57. He was requiring 100% nonrebreather mask. When he arrived to the ICU, his blood pressure was 70/40. Therefore, he was treated with IV fluid. Chest x-ray showed that he has airspace opacity with mid to inferior left hemithorax, which may be atelectasis or infiltrate. He also has right base, interstitial opacity, which may be edema. His white cell count was normal. His serum sodium was high at 151, BUN was 67, creatinine 2.7. He was resuscitated with IV fluid and eventually started him on D5W to hopefully correct his hypernatremia. We did start him also on IV antibiotic and the patient did not do well. He continued to deteriorate and therefore after discussion with his daughter who was agreeable, he was transferred to inpatient hospice care. He apparently started on comfort care and the patient basically did not continue to deteriorate and was pronounced . CAUSE OF : Cardiopulmonary arrest, acute on chronic hypoxic respiratory failure, healthcare-associated pneumonia, congestive heart failure, acute on chronic kidney injury, hypernatremia. LARISSA ROMERO MD DR: PONCE/rosenda JOB#: [id number] / [id number]
== END 2019-12-27 14:30 | disposition expired | DRG 682 ==
LOC: 1 SOUTH 20:46 → ICU 21:00
PROVIDERS: ADMIT Internal Medicine; ATTEND Internal Medicine
DX: N17.9 Acute kidney failure, unspecified (principal); J96.21 Acute and chronic respiratory failure with hypoxia; J18.9 Pneumonia, unspecified organism; E87.0 Hyperosmolality and hypernatremia; J98.11 Atelectasis; I46.9 Cardiac arrest, cause unspecified; Z51.5 Encounter for palliative care; I95.9 Hypotension, unspecified; I50.9 Heart failure, unspecified; N18.9 Chronic kidney disease, unspecified; Y95 Nosocomial condition; Z79.899 Other long term (current) drug therapy